=== PATIENT | male | born 1990 | race Caucasian/White ===

== ENCOUNTER 2020-10-13 00:03 | Inpatient (IN) | payer MEDICAID, SELFPAY ==
[2020-10-13] VITALS (7 sets, daily range): BP systolic 154–184; BP diastolic 98–117; PULSE 67–92; RESP 15–20; TEMP 36.6–37.2; O2SAT 97–98; BMI 26.4
--- NOTE | 2020-10-13 00:23 | ED.GENADULT ---
HPI - General Adult General Chief complaint: Psychiatric Symptoms Stated complaint: si/hi Time Seen by Provider: 10/13/20 00:22 Source: patient and EMS Mode of arrival: EMS Limitations: no limitations History of Present Illness HPI narrative: Patient is brought to emergency room by EMS. EMS reports that the patient's sister called the police, seems that the patient called the sister, told her that he would give her a few hours of ?heads up? because she was coming after her. Seems the patient had to be chased by PD. Patient was Section 12 in the field. Patient states that he when out for a run, did not mention anything about his sister, states that he has been having some difficulty coping with issues, when out for a run to clear his mind. Patient admits to be using anabolic steroids. States he has been injecting them to build muscle, has been off of them for a few days, states that he thinks it is the steroids that is making him feel mentally unbalanced. states that he is known to be bipolar but uses marijuana for self-medication. Patient denied HI, states that he has vague SI thoughts, states he does not want to be here anymore Related Data Home Medications Medication Instructions Recorded Confirmed No Known Home Meds 10/13/20 10/13/20 Allergies Allergy/AdvReac Type Severity Reaction Status Date / Time No Known Allergies Allergy Verified 10/13/20 00:22 Review of Systems Review of Systems: Constitutional : No Weight loss, No Fever, No Chills, No Night Sweats, No Fatigue, No Malaise ENT/Mouth : No Hearing loss, No Ear Pain, No Nasal Congestion, No Sinus Pain, No Hoarseness, No sore throat, No Rhinorrhea, No Swallowing Difficulty Eyes: No Eye Pain, No Swelling, No Redness, No Foreign Body, No Discharge, No Vision Changes Cardiovascular : No Chest Pain, No SOB, No Dyspnea on Exertion, No Orthopnea, No Edema, No Palpitations Respiratory : No Cough, No Sputum, No Wheezing, No Smoke Exposure, No Dyspnea Gastrointestinal : No Nausea, No Vomiting, No Diarrhea, No Constipation, No abdominal Pain, No Hematochezia, No Melena Genitourinary : no irregular bleeding, No Dysuria, No Urinary Frequency, No Hematuria, No Urinary Incontinence, No Urgency, No Flank Pain, No Urinary Flow Changes, No Hesitancy Musculoskeletal : No joint pain, No Myalgias, No Joint Swelling Skin : No Skin Lesions, No rash Neuro : No Weakness, No Numbness, No Paresthesias, No Loss of Consciousness, No Dizziness, No Headache Psych : Vague SI and HI towards sister Heme/Lymph: No Bruising, No Bleeding,No Lymphadenopathy Endocrine : No Polyuria, No Polydipsia, No Temperature Intolerance [facility] Past Medical History Medical History (Updated 10/13/20 @ 00:28 by Uyen Tolentino MD) Bipolar 1 disorder Social History Social History Alcohol intake: current Alcohol intake frequency: holidays/special occasions only Patient Tobacco Use Status: Current everyday Tobacco user Smoked in Last 30 Days: Yes Use of substances other than those prescribed or required for medical reasons: Yes Substance Use Type: Marijuana Substance Use Frequency: Daily Last Used Substance: Just Prior to Admission Any prior treatment program specific to substance use: No Advance Directives: No Advance Directives Information Provided: Yes Physical Exam Vital Signs: Vital Signs: Last Vital Signs Pulse 92 10/13/20 00:14 Resp 16 10/13/20 00:14 BP 184/98 H 10/13/20 00:14 Pulse Ox 98 10/13/20 00:14 Body Mass Index 26.4 Const: Other: Appearance: Alert. Oriented X3. No acute distress. Eyes: Pupils equal, round and reactive to light. ENT: Pharynx normal. Neck: Normal inspection. Neck supple. No lymph nodes noted. No crepitus CVS: Normal heart rate and rhythm. Pulses normal. Normal S1 and S2 Respiratory: No respiratory distress. Breath sounds normal. No Wheezing. No rales Abdomen: Soft and nontender. No rigidity. No distention. good BS x4 Skin: Skin warm and dry. Normal skin color. Normal skin turgor. Extremities: No lower extremity edema. No Lacerations. No Rash Neuro: Oriented X 3. Cranial nerves 2-12 grossly intact No motor deficit. No sensory deficit. Moving all extermities. No slurred speech. Psych: Calm, cooperative, speaking in full sentences Course Course Course Narrative: Patient is under Section 12. [facility] consult pending. Physician observation started at 00:30 Approximately 645, patient stated that he wanted to leave home, told the nurse in the [facility] but that had 5 minutes to given his clothes or he would become physically violent. Patient's nurse pulled out 5 mg of Haldol, 2 of Ativan and 50 of Benadryl. Patient did calm down. Patient keeps space in between his room and the phone. However he keeps making homicidal statements such as he is going to kill people. At this time, 702, the medication has not been given, he is deescalating, however patient gets angry very quickly and he may need to be medicated. I was informed by the patient since that when patient came in, he came in with a Section 12, however it seems that the PD to come with him. I will go ahead and renew it. As mentioned above, patient continues making fell statements At this time, patient is on the phone. Sign-out given to Dr. Sheldon Medical Decision Making Lab Data Labs: Lab Results 10/13/20 10/13/20 10/13/20 Range/Units 00:38 00:38 00:38 Urine Color YELLOW Urine Appearance CLEAR Urine pH 6.0 (5.0-8.0) Ur Specific [place] 1.025 (1.005-1.025) Urine Protein TRACE (NEG-TRACE) MG/DL Urine Glucose (UA) NEG (NEG) MG/DL Urine Ketones 15 (NEG) MG/DL Urine Blood NEG (NEG) Urine Nitrite NEG (NEG) Ur Leukocyte Esterase NEG (NEG) Urine Opiates Screen POSITIVE H (Not Detect) Urine Fentanyl Screen Not Detected (Not Detect) Ur Barbiturates Screen Not Detected (Not Detect) Ur Phencyclidine Scrn Not Detected (Not Detect) Ur Amphetamines Screen Not Detected (Not Detect) U Benzodiazepines Scrn Not Detected (Not Detect) Urine Cocaine Screen Not Detected (Not Detect) U Marijuana (THC) Screen POSITIVE H (Not Detect) COVID-19 (LUCIE) Negative (Negative) COVID-19 Clin Com See Note Discharge Plan Discharge Clinical Impression: Feeling suicidal Prescriptions: No Action No Known Home Meds RF: 0
[2020-10-13 00:50] LABS: Appearance Urine CLEAR; Color Urine YELLOW; Glucose Urine UA NEG (NEG); Leukocyte Esterase Urine NEG (NEG); Nitrite Urine NEG (NEG); Specific Gravity - Urine 1.025 (1.005-1.025); Urine Blood NEG (NEG); Urine Ketones 15 MG/DL (NEG); Urine Protein TRACE MG/DL (NEG-TRACE)
[2020-10-13 00:59] LABS: COVID-19 Test Negative (Negative); IDNOW Serial# 9DD0AD1C
[2020-10-13 01:00] LABS: Amphetamine Screen Urine Not Detected (Not Detect); Barbiturates, Urine Not Detected (Not Detect); Benzodiazepines Screen Urine Not Detected (Not Detect); Cannabinoid Screen Urine POSITIVE (Not Detect); Cocaine Screen Urine Not Detected (Not Detect); Fentanyl, urine Not Detected (Not Detect); Opiate Screen Urine POSITIVE (Not Detect); Phencyclidine Screen Urine Not Detected (Not Detect)
--- NOTE | 2020-10-13 01:49 | PC.NURSE ---
[facility] referal sent.
--- NOTE | 2020-10-13 01:58 | PC.NURSE ---
shower completed pt is now back in his room and given water and offered snack. pt is calm and cooperative.
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
--- NOTE | 2020-10-13 07:40 | PC.NURSE ---
pt is on [facility] phone and is calm and co-op. [facility] called they will be in to see him this am.
--- NOTE | 2020-10-13 08:10 | PC.NURSE ---
PT ATE 100% OF BREAKFAST.
--- NOTE | 2020-10-13 09:07 | PC.NURSE ---
ilya Ibrahimsara) at bedside, pt aware of plan of care..
--- NOTE | 2020-10-13 10:08 | PC.NURSE ---
Addendum entered by Halie Beal 10/13/20 10:14: RN was made aware of the statements made by the patient while on a phone call with an unknown person. Original Note: patient reported so you did not see them at court sectioning me? how did you not know this was happening to me? well, you all are all done when i get out of here, DONE! , as he was on the phone with an unknown person. T/W asked the patient if he needed anything to help settle down after the upsetting call, patient reported i just need a hot blanket and a long shower . patient then proceeded to patiently wait as T/W collected the necessary items for the shower. he then asked to take a long shower, to be able to collect his thoughts and sit in the shower for a while without any disruptions . patient is now in the shower. patient is being calm and cooperative towards staff at this time.
--- NOTE | 2020-10-13 12:14 | PC.NURSE ---
Patient angry and yelling on phone, patient reports I will do anything to get security to come here but they won't come within 6 feet of me .
--- NOTE | 2020-10-13 16:42 | PC.NURSE ---
Patient calm cooperative resting in room
--- NOTE | 2020-10-13 18:33 | PC.NURSE ---
Patient yelling on phone at this time. I cant get to my happy place here. , why the fuck cant I leave? ,
--- NOTE | 2020-10-13 20:48 | PC.NURSE ---
Patient calm cooperative at this time, watching TV in common area.
[2020-10-13] MEDS: diphenhydrAMINE HCL 25 MG TABLET 50 MG PO (23:24)
[2020-10-13] MEDS: LORazepam 1 MG TABLET 2 MG PO (23:24)
[2020-10-13] MEDS: OLANZapine 5 MG TABLET PO (23:24)
--- NOTE | 2020-10-13 23:52 | PC.NURSE ---
Patient was in his room, attempted to interact, successful, compliant with Vital signs assessment, BP 179/117. HR 82. Patient obviously asymptomatic of withdrawal, patient aware he is aware of his hypertension working on his diet and exercise, patient appears restless, stated tomorrow is a big day offered medication to calm him down and for sleep, provider notified/ordered Ativan 2 mg PO, Benadryl 50 mg PO, and Olanzapine 5 mg PO. Patient took shower, hydrated with water, lie down in bed, resting quietly in bed at this time, will continue to monitor.
--- NOTE | 2020-10-14 06:08 | PC.NURSE ---
Patient slept through the night, no distress observed/reported, patient's disposition per [facility] is section 12 inpatient bed search, behavior appropriate, med compliant, appetite good, hydrating well, will continue to monitor.
--- NOTE | 2020-10-14 07:12 | PC.NURSE ---
patient appear to remain asleep at present respirations seem even and unlabored, patient appears in no distress
--- NOTE | 2020-10-14 07:47 | ECG_ITS ---
Test Reason : MED CLEARANCCE Blood Pressure : / mmHG Vent. Rate : 096 BPM Atrial Rate : 096 BPM P-R Int : 122 ms QRS Dur : 090 ms QT Int : 352 ms P-R-T Axes : 069 083 035 degrees QTc Int : 444 ms Normal sinus rhythm Normal ECG No previous ECGs available Referred By: Uyen Tolentino Electronically Signed By:NELLY GONZALES
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
--- NOTE | 2020-10-14 11:09 | PC.NURSE ---
client comes out and demands to leave, takes off clothing saying im calling my clinical account liaison, i want to go see my father in [place] and by im leaving allegedly called sister and asked her to call his clinical account liaison.
[2020-10-14] MEDS: LORazepam 1 MG TABLET 2 MG PO (13:51)
[2020-10-14 14:37] LABS: MANUAL DIFF FLAG NO
[2020-10-14 14:51] VITALS: BP 161/93; PULSE 93; O2SAT 97
[2020-10-14 15:00] LABS: Alanine Aminotransferase 32 U/L (0-40); Albumin Level 4.7 g/dL (3.5-5.0); Alkaline Phosphatase 45 U/L (39-117); Anion Gap 12 (12-20); Aspartate Amino Transferase 38 U/L (5-37); Bilirubin Direct 0.2 mg/dL (0.0-0.5); Bilirubin Total 0.6 mg/dL (0.0-1.0); Blood Urea Nitrogen 17 mg/dL (9-16); Calcium 9.7 mg/dL (8.4-10.2); Carbon Dioxide 26 mmol/L (22-29); Chloride 106 mmol/L (96-108); Creatinine Clr Calc Pharmacy 99.6; Estimated Glomerular Filt Rate > 60; Glucose Random 104 mg/dL (60-115); Potassium 4.3 mmol/L (3.3-5.1); Sodium 140 mmol/L (135-145); Total Protein 7.7 g/dL (6.5-8.0)
[2020-10-14 15:05] LABS: Basophils Percent Auto 0.3 % (0-2); Eosinophils Percent Auto 0.5 % (0-4); Hematocrit 51.1 % (42-52); Hemoglobin 17.3 g/dl (14.0-18.0); Imm Gran Abs Auto 0.02 X10*3/uL (0.00-0.03); Imm Gran Pct Auto 0.3 % (0.0-0.4); Lymphocytes Absolute Auto 1.3 X10*3/uL (1.2-4.9); Lymphocytes Percent Auto 18.3 % (20-40); Mean Corpuscular HGB Conc 33.9 g/dl (31.0-36.0); Mean Corpuscular Hemoglobin 29.5 pg (27.0-33.0); Mean Corpuscular Volume 87.2 fL (80-98); Mean Platelet Volume 10.1 fL (9.4-12.4); Monocytes Absolute Auto 0.6 X10*3/uL (0.1-1.2); Monocytes Percent Auto 7.9 % (2-11); Neutrophils Absolute Auto 5.3 X10*3/uL (2.0-8.3); Neutrophils Percent Auto 72.7 % (45-73); Platelet Count 235 X10*3/uL (160-400); Red Blood Count 5.86 X10*6/uL (4.60-5.80); Red Cell Distribution Width 12.7 % (11.0-16.0); White Blood Count 7.3 X10*3/uL (4.8-10.8)
--- NOTE | 2020-10-14 15:47 | PC.NURSE ---
attempted to verify meds at [facility], it is currently closed
--- NOTE | 2020-10-14 19:02 | PC.ADMIT ---
Pt is a 30 year old who presents to [facility] from [facility] at approx 16:30 on a cv status. Pt is covid -. Utox + for THC and opiates. Pt prsetned to [facility] via EMS secondary to PD sending him due to running in the [employer] and making SI/HI statements to his mother and sister. Pt alert & oriented. Pt denies SI/HI/AVH. Pt mentioned that his mother would give him opiates. Pt does not have any outpt services. Pt seeking a therapist. Pt made vague SI statements to sis. Dr. Billy Alarcon called for orders and notified of admission. Start treatment plan and monitor for safety.
[2020-10-14] MEDS: Nicotine Polacrilex 2 MG GUM BUCCAL (21:30)
[2020-10-14 23:23] VITALS: BP 169/98; PULSE 87
[2020-10-14 23:28] VITALS: BP 169/98; PULSE 87
[2020-10-14] MEDS: amLODIPine Besylate 10 MG TABLET PO (23:28)
--- NOTE | 2020-10-15 | ECG_ITS ---
Test Reason : ON MEDS Blood Pressure : / mmHG Vent. Rate : 106 BPM Atrial Rate : 106 BPM P-R Int : 130 ms QRS Dur : 094 ms QT Int : 336 ms P-R-T Axes : 079 086 020 degrees QTc Int : 446 ms Sinus tachycardia Otherwise normal ECG When compared with ECG of 14-OCT-2020 15:42, No significant change was found Referred By: Uyen Tolentino Electronically Signed By:NELLY GONZALES
[2020-10-15 06:00] VITALS: PULSE 82; RESP 16; TEMP 36; O2SAT 100
[2020-10-15] MEDS: Nicotine Polacrilex 2 MG GUM BUCCAL ×2 (09:17→13:05)
--- NOTE | 2020-10-15 10:25 | HO.PSYADMNOT ---
HPI Chief Complaint: Depression SI Sources of Information: patient interviewed, chart reviewed and crisis/core team assessment reviewed HPI Subjective Notes: Waterman Warning, Conditional Voluntary and 3 Day Narrative: Patient is a 30-year-old male with history of PTSD, depression and substance abuse who presents for worsening depression and making both suicidal homicidal comments and the face of emotional dysregulation. Patient reports a long history of traumatic experiences dating back to childhood when he and his sister were both in foster care, eventually being adopted by their grandfather. Patient also has history of juvenile fpc. He reports that about a year and a half ago he broke up with his fiancee with whom he has a child and has been feeling depressed since. 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 Patient was forthcoming during interview. He was calm, cooperative, organized in speech and behavior and thoughtful in responses. He reports that about a year ago he started taking anabolic steroids to gain muscle but his depression over the past few months has sapped his motivation and energy for working out. He endorses increased anger and emotionality while taking steroids which his friends have noticed and become somewhat alienated. Patient says he went off steroids about 2 weeks ago since he was not exercising and he thinks that coming off them has also caused mood dysregulation. Patient says he smokes cannabis daily which at 1st he used to treat anxiety, however it has become abused which he finds problematic. Pt endorses low interest and motivation increased guilt, low energy, trouble sleeping. This past week or so, leading up to the anniversary of his father's patient has been feeling more lonely than usual and that his friends and sister are not really there for him. He has the insight to know that it can all be is friend's and family's fault as he is the common denominator however the feelings of abandonment remain. Last week he helped a friend move and afterwards the person refused to give him a ride home. He thus had to walk extensive distance home. On the way he texted various friends, none of whom responded. He also texted his sister who also did not respond. This lack of perceived support made patient feel increasingly lonely and despondent. He texted his sister several times however she did not respond. Wanting to get a reaction, he texted to his sister something to the effect that he does not want to be here anymore or that he was going to kill himself. She still did not respond. However either later that day or the next day patient found his [id number] sitting it in his living room. Patient thought that was weird but nothing was said and patient when jogging. It is unclear the exact course of events, however his sister came over also and told him that the police were coming over. Patient was angry that this was his sister's response, calling the police, rather than just calling him and talking with him so he when out jogging again. As he returned home police told him to stop and in his angry, defensive disposition he resisted and was subsequently threatened with being Tazed. While on the ground being handcuffed patient said he was extremely angry and yelled to his sister that he was going to kill her or hurt her or various other angry threatening things. Of note, this was the day of his fathers and pt was also upset that he would not be able to go to grave site as is his tradition. In the ED, Patient was also dysregulated, feeling like no one was explaining the situation to him and he was eventually chemically restrained. On the unit after admission, patient punched the shower wall since the water stopped in his eyes were soapy. Patient shares that he was in no way suicidal at all and has never been but only made that comment via text to get a response from his sister. He also says that he would never hurt his sister or her family and again when he gets angry and dysregulated, says all kinds of things that he does not mean. Patient is strongly aware that his current behaviors and feelings of abandonment stem from his long history of trauma. He feels what he needs most is therapy, however he is willing to a trial of Prozac. Patient says he does not want to stay on unit long or feel the need to, saying the he is stable, safe and that his anger has fully subsided and he wants to get back to his life. He knows that he has been distant from a sister but also knows that the 2 of them well reconcile and work this out as they have only each other in this life. Patient also shares that he is done taking anabolic steroids, concerned about his high blood pressure and other negative affects; he also reports that he needs to cut back using cannabis. Patient denies any SI or HI. Patient denies history of manic type episodes or behavior Patient reports history of substance abuse but says he has not used cocaine in quite some time and only uses alcohol occasionally and does not abuse it. Regarding urine tox screen positive for opiates he said that his back was hurting and that his mother gave him some oxy. He says otherwise he does not use or abuse opiates. Cloth Finishing Range Operator examined patient's hand which is not tender. Patient has full range of motion and 5/5 payable processor strength. He says he does not want an x-ray Past Psychiatric History: Childhood dysregulation, various medication trials including Depakote but no medications since he was 15 years old Medical Evaluation Reviewed: Yes [facility] Medical History (Updated 10/16/20 @ 13:16 by Apolinar Lennon MD) Bipolar 1 disorder Chronic post-traumatic stress disorder (PTSD) MDD (major depressive disorder), recurrent episode, severe Family History: Both parents drug abuse history Social History: Intermittently lives with his mother who was addicted to cocaine Patient and his sister were taken into custody by social media marketing manager when they were young; eventually adopted by their grandfather Patient has history of juvenile fpc Patient has history of incarceration for battery Substance History: Reports he used to abuse cocaine and alcohol but no longer Trauma History: Severe and extensive childhood trauma; other traumas in adult life Diagnostics Vital Signs (24Hr): Vital Signs - 24 hr 10/14/20 14:51 10/14/20 23:23 10/14/20 23:28 Temperature Pulse Rate 93 87 87 Respiratory Rate Blood Pressure 161/93 H 169/98 H 169/98 H Pulse Oximetry 97 10/15/20 06:00 Temperature 96.8 F Pulse Rate 82 Respiratory Rate 16 Blood Pressure Pulse Oximetry 100 Body Mass Index 26.4 Labs Results: 10/14/20 14:33 10/14/20 14:33 Labs: Laboratory Results - last 48 hr 10/14/20 10/14/20 14:33 14:33 WBC 7.3 RBC 5.86 H Hgb 17.3 Hct 51.1 MCV 87.2 MCH 29.5 MCHC 33.9 RDW 12.7 Plt Count 235 MPV 10.1 Immature Gran % (Auto) 0.3 Neut % (Auto) 72.7 Lymph % (Auto) 18.3 L [place] % (Auto) 7.9 Eos % (Auto) 0.5 Baso % (Auto) 0.3 Lymph # (Auto) 1.3 [place] # (Auto) 0.6 Eos # (Auto) 0.0 Baso # (Auto) 0.0 Abs Immat Gran (auto) 0.02 Absolute Neuts (auto) 5.3 Absolute Nucleated RBC 0.000 Nucleated RBC % (auto) 0.0 Sodium 140 Potassium 4.3 Chloride 106 Carbon Dioxide 26 Anion Gap 12 BUN 17 H Creatinine 1.19 Estim Creat Clear Calc 99.6 Estimated GFR > 60 Random Glucose 104 Calcium 9.7 Total Bilirubin 0.6 Direct Bilirubin 0.2 AST 38 H ALT 32 Alkaline Phosphatase 45 Total Protein 7.7 Albumin 4.7 Meds/Allergies Meds Home Medications Acetaminophen (Acetaminophen 325 Mg Tablet) 650 mg PO Q6H PRN PRN Reason: Headache/Pain Mild Scale (1-3) Al Hydroxide/Mg Hydroxide (Magnesium Hydrox/Alum Hydrox 30 Ml Oral.Susp) 30 ml PO Q6H PRN PRN Reason: Heartburn/Nausea Diphenhydramine HCl (Diphenhydramine Hcl 25 Mg Tablet) 50 mg PO Q4H PRN PRN Reason: agitation Fluoxetine HCl (Fluoxetine Hcl 10 Mg Capsule) 10 mg PO DAILY [facility] Last Admin: 10/16/20 09:09 Dose: 10 mg Documented by: Haloperidol (Haloperidol 5 Mg Tablet) 5 mg PO Q4H PRN PRN Reason: agitation Hydralazine HCl (Hydralazine Hcl 10 Mg Tablet) 10 mg PO TID PRN; Protocol PRN Reason: HTN Last Admin: 10/16/20 05:06 Dose: 10 mg Documented by: Lorazepam (Lorazepam 1 Mg Tablet) 2 mg PO Q4H PRN PRN Reason: agitation Magnesium Hydroxide (Milk Of Magnesia 30 Ml Oral.Susp) 30 ml PO DAILY PRN PRN Reason: Constipation Nicotine Polacrilex (Nicotine Polacrilex 2 Mg Gum) 2 mg BUCCAL Q2H PRN PRN Reason: Nicotine Cravings Last Admin: 10/16/20 08:56 Dose: 2 mg Documented by: Trazodone HCl (Trazodone Hcl 50 Mg Tablet) 50 mg PO BEDTIME PRN PRN Reason: Insomnia Allergies Allergies Allergy/AdvReac Type Severity Reaction Status Date / Time No Known Allergies Allergy Verified 10/13/20 00:22 Mental Status Exam Mental Status Exam Narrative: Pt is alert and oriented; behavior is cooperative and calm; patient is not in distress; dressed in casual attire with scruffy bailey but adequate hygiene; mood is described as better affect anxious; eye contact appropriate; Speech is normal rate, volume and prosody and not pressured; no psychomotor agitation/retardation present; thought process is organized, linear, logical and goal directed. Thought content is on getting treatment and discharge; otherwise TC relevant to pertinent topics and without any delusional content, paranoid ideations or grandiosity; denies any SI/HI. There is no evidence of perceptual disturbance. ?Patients insight and judgment appear intact. ? Assessment & Plan Assessment & Plan (1) MDD (major depressive disorder), recurrent episode, severe: Status: Acute Code(s): F33.2 - Major depressive disorder, recurrent severe without psychotic features (2) Chronic post-traumatic stress disorder (PTSD): Status: Acute Code(s): F43.12 - Post-traumatic stress disorder, chronic Assessment and Plan: IMPRESSION: Patient is a 30-year-old male with history of PTSD, depression and substance abuse who presents for worsening depression and making both suicidal homicidal comments and the face of emotional dysregulation. Patient meets criteria for MDD; patient PTSD symptoms were not explored as he was not wanting to discuss, however patient very likely has complex PTSD and possibly some borderline traits. That said, patient denies any history at all of suicidality and says that his suicidal comment was made only to get a reaction from his sister; he also reports he would never hurt his family and only made threats to again expresses anger. Patient agrees to trial of Prozac and wants help getting a therapist. He also wants to discharge as soon as possible feeling stable on ready to go. Team will gather collateral however it is quite possible that patient is back to his baseline. 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 Medical consult placed to assess hypertension and medication management Team will gather collateral Reason for continued inpatient stay Substantial Risk for: med/psych decompensation
[2020-10-15 12:19] VITALS: BP 173/98; PULSE 90
[2020-10-15] MEDS: hydrALAZINE HCl 10 MG TABLET PO (12:19)
[2020-10-15] MEDS: FLUoxetine HCl 10 MG CAPSULE PO (18:44)
[2020-10-16] VITALS (9 sets, daily range): BP systolic 140–183; BP diastolic 81–126; PULSE 72–93; RESP 14–18; TEMP 36.2–36.4; O2SAT 97–99
[2020-10-16] MEDS: hydrALAZINE HCl 10 MG TABLET PO (05:06)
[2020-10-16] MEDS: Nicotine Polacrilex 2 MG GUM BUCCAL ×2 (08:56→18:35)
[2020-10-16] MEDS: FLUoxetine HCl 10 MG CAPSULE PO (09:09)
[2020-10-16] MEDS: cloNIDine HCL 0.1 MG TABLET PO ×2 (14:32→21:26)
--- NOTE | 2020-10-16 17:04 | P.CONIM_ITS ---
History of Present Illness Data of Consult Service Date: 10/16/20 Primary Care Provider: Unknown Physician HPI Reason for consult: Elevated blood pressure readings A 30 years old male with PMH of PTSD, depression who was admitted to the hospital for suicidal thoughts. Blood pressure was noted to be significantly e levated and medical team was consulted for evaluation. The patient reports that he was found to have hypertension 3 years ago when his weight was much higher. He did not take any medications at this point but lost weight and became more active, to the gym but stopped checking his blood pressure afterward so he does not know his readings for the last 2 years. He reports that his father suddenly at the age of 37 with heart attack. He is not aware of other medical details related to his father. He denies any chest pain, headache, lightheadedness, double vision, difficulty breathing or shortness of breath. He reported using anabolic steroids recently which she stopped few days ago. Review of Systems Review of Systems: No fever, chills or weakness No chest pain, palpitation No shortness of breath or coughing No abdominal pain, nausea or vomiting No urinary symptoms No any rash or wounds PMFSH Medical History Bipolar 1 disorder Chronic post-traumatic stress disorder (PTSD) MDD (major depressive disorder), recurrent episode, severe Social History Household Members: Family and None Housing: Apartment Do you presently have visiting nurse or other home services: No Alcohol intake: current Alcohol intake frequency: holidays/special occasions only Patient Tobacco Use Status: Current everyday Tobacco user Tobacco use type: Cigarette Cigarette Packs Per Day: 1.5 Cigarettes Per Day: 30.0 Years Smoked: 3 Smoked in Last 30 Days: Yes Patient Interested in Nicotine Replacement: Yes Patient Given Instructions on How to Stop Smoking: Yes Date Education Initiated: 10/14/20 Second Hand Smoke Exposure: Yes Use of substances other than those prescribed or required for medical reasons: Yes Substance Use Type: Marijuana and Opiates Substance Use Frequency: Daily Last Used Substance: Just Prior to Admission Currently Displaying Signs/Symptoms of Drug Intoxication Withdrawal: No Any prior treatment program specific to substance use: No Have you been hit, kicked, punched, or otherwise hurt by someone within the past year? If so, by whom?: No Do you feel safe in your current relationship?: No Current Relationship Is there a partner from a previous relationship who is making you feel unsafe now?: No Are you made to feel afraid or neglected: No Advance Directives: No Advance Directives Information Provided: Yes Do you have thoughts of harming others: None Do you have a plan to hurt others: No Plan Recently lost weight without trying: No How much weight loss: Not applicable Eating poorly because of decreased appetite: No Nutrition screen score: 0 Nutrition Risks: No Nutritional Risk Poor oral hygiene: No service: No Sexual orientation: Straight/Heterosexual Meds Allergies Allergy/AdvReac Type Severity Reaction Status Date / Time No Known Allergies Allergy Verified 10/13/20 00:22 Active Medications: Current Medications Generic Name Dose Route Start Last Admin Trade Name Freq PRN Reason Stop Dose Admin Acetaminophen 650 mg 10/14/20 16:02 Acetaminophen 325 Mg Tablet PO Q6H PRN Headache/Pain Mild Scale (1-3) Al Hydroxide/Mg Hydroxide 30 ml 10/14/20 16:02 Magnesium Hydrox/Alum Hydrox 30 Ml Oral.Susp PO Q6H PRN Heartburn/Nausea Clonidine HCl 0.1 mg 10/16/20 21:00 10/16/20 14:32 Clonidine Hcl 0.1 Mg Tablet PO 0.1 mg BID CEE Administration Protocol Diphenhydramine HCl 50 mg 10/15/20 10:31 Diphenhydramine Hcl 25 Mg Tablet PO Q4H PRN agitation Fluoxetine HCl 10 mg 10/16/20 09:00 10/16/20 09:09 Fluoxetine Hcl 10 Mg Capsule PO 10 mg DAILY CEE Administration Haloperidol 5 mg 10/15/20 10:31 Haloperidol 5 Mg Tablet PO Q4H PRN agitation Hydralazine HCl 10 mg 10/15/20 10:27 10/16/20 05:06 Hydralazine Hcl 10 Mg Tablet PO 10 mg TID PRN Administration HTN Protocol Lorazepam 2 mg 10/15/20 10:31 Lorazepam 1 Mg Tablet PO Q4H PRN agitation Magnesium Hydroxide 30 ml 10/14/20 16:02 Milk Of Magnesia 30 Ml Oral.Susp PO DAILY PRN Constipation Nicotine Polacrilex 2 mg 10/14/20 16:02 10/16/20 08:56 Nicotine Polacrilex 2 Mg Gum BUCCAL 2 mg Q2H PRN Administration Nicotine Cravings Trazodone HCl 50 mg 10/14/20 16:02 Trazodone Hcl 50 Mg Tablet PO BEDTIME PRN Insomnia Home Medications Medication Instructions Recorded Confirmed Last Taken Type No Known Home Meds 10/13/20 10/13/20 Unknown History Physical Exam Vital Signs and Narrative: Vital Signs: Last Vital Signs Temp 97.2 F 10/16/20 09:00 Pulse 75 10/16/20 15:34 Resp 16 10/16/20 15:34 BP 183/111 H 10/16/20 15:34 Pulse Ox 98 10/16/20 09:00 Body Mass Index 26.4 Const: Other: Constitutional : Alert, oriented, not in distress Neck : Normal inspection, Supple Cardiovascular : RRR, S1 S2, no lower extremity edema Respiratory : Good bilateral air entry, no crackles, wheezes or rhonchi Gastrointestinal: soft, lax, Normal bowel sounds, Non tender Skin : Warm, Dry Neurological : Alert & oriented x3, No focal deficit Results Labs CBC and Chem 7: 10/14/20 14:33 10/14/20 14:33 Assessment and Plan (1) Uncontrolled hypertension: Status: Acute A 30 years old male with PMH of PTSD, depression who was admitted to the hospital for suicidal thoughts. Blood pressure was noted to be significantly elevated and medical team was consulted for evaluation. Uncontrolled hypertension Seems to be chronic with poor compliance and followups In his young age could be secondary VS primary Start amlodipine 5 mg and hydrochlorothiazide 25 mg daily Goal to bring systolic blood pressure around 140 for now BMP, UA within normal Check TSH Will need outpatient workup with kidney ultrasound, possible echo and Endocrinology workup Continue blood pressure medications at discharge and to report 1 week readings to his PCP for further evaluation and referrals as needed Thank you for the consult, will continue to monitor with you
[2020-10-16] MEDS: hydroCHLOROthiazide 25 MG TABLET PO (17:20)
[2020-10-16] MEDS: amLODIPine Besylate 5 MG TABLET PO (17:21)
[2020-10-16 18:48] LABS: Thyroid Stimulating Hormone 1.12 uIU/mL (0.32-4.0)
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
[2020-10-17] MEDS: traZODone HCL 50 MG TABLET PO (01:19)
[2020-10-17 08:42] VITALS: BP 168/97; PULSE 97
[2020-10-17] MEDS: FLUoxetine HCl 10 MG CAPSULE PO (08:42)
[2020-10-17 08:43] VITALS: BP 168/97
[2020-10-17] MEDS: amLODIPine Besylate 5 MG TABLET PO (08:43)
[2020-10-17] MEDS: hydroCHLOROthiazide 25 MG TABLET PO (09:13)
--- NOTE | 2020-10-17 09:16 | P.DS_ITS ---
DS: Providers Provider Date of Service: 10/17/20 Date of admission: 10/14/20 15:51 Date of discharge: 10/17/20 Primary care physician: Unknown Physician Attending physician on admission: Apolinar Lennon Consults: 10/16/20 10:44 Consult to Hospitalist Routine Consulting Provider: Hospitalist Reason For Exam: HTN; needs med for tx Attending physician on discharge: Apolinar Lennon DS: Diagnosis Discharge Diagnosis (1) Chronic post-traumatic stress disorder (PTSD): Status: Chronic (2) MDD (major depressive disorder), recurrent episode, severe: Status: Chronic (3) Uncontrolled hypertension: Status: Acute DS: Medications Discharge Medications Home Medications: Home Medications Medication Instructions Recorded Confirmed No Known Home Meds 10/13/20 10/13/20 Previous Rx's Medication Instructions Recorded amlodipine 5 mg tablet 5 mg PO DAILY 30 Days #30 tab 10/17/20 fluoxetine 10 mg capsule 10 mg PO DAILY 30 Days #30 cap 10/17/20 hydrochlorothiazide 25 mg tablet 25 mg PO DAILY 30 Days #30 tab 10/17/20 nicotine (polacrilex) 2 mg gum 2 mg BUCCAL Q2H PRN 30 Days #100 ea 10/17/20 Mental Status Exam Mental Status Exam Narrative: ?Pt is alert and oriented; behavior is cooperative and calm; patient is not in distress; neatly dressed in casual attire with scruffy bailey but good hygiene; mood is described as good ? affect calm, congruent; eye contact appropriate; Speech is normal rate, volume and prosody and not pressured; no psychomotor agitation/retardation present; thought process is organized, linear, logical and goal directed. Thought content is on continuing treatment and discharge; otherwise TC relevant to pertinent topics and without any delusional content, paranoid ideations or grandiosity; denies any SI/HI. There is no evidence of perceptual disturbance. ?Patients insight and judgment appear intact. Data Data Completed and Pending Completed studies during hospitalization [Text1]: 10/13/20 10/13/20 10/13/20 00:38 00:38 00:38 WBC RBC Hgb Hct MCV MCH MCHC RDW Plt Count MPV Immature Gran % (Auto) Neut % (Auto) Lymph % (Auto) [place] % (Auto) Eos % (Auto) Baso % (Auto) Lymph # (Auto) [place] # (Auto) Eos # (Auto) Baso # (Auto) Abs Immat Gran (auto) Absolute Neuts (auto) Absolute Nucleated RBC Nucleated RBC % (auto) Sodium Potassium Chloride Carbon Dioxide Anion Gap BUN Creatinine Estim Creat Clear Calc Estimated GFR Random Glucose Calcium Total Bilirubin Direct Bilirubin AST ALT Alkaline Phosphatase Total Protein Albumin TSH Urine Color YELLOW Urine Appearance CLEAR Urine pH 6.0 Ur Specific [place] 1.025 Urine Protein TRACE Urine Glucose (UA) NEG Urine Ketones 15 Urine Blood NEG Urine Nitrite NEG Ur Leukocyte Esterase NEG Urine Opiates Screen POSITIVE H Urine Fentanyl Screen Not Detected Ur Barbiturates Screen Not Detected Ur Phencyclidine Scrn Not Detected Ur Amphetamines Screen Not Detected U Benzodiazepines Scrn Not Detected Urine Cocaine Screen Not Detected U Marijuana (THC) Screen POSITIVE H COVID-19 ([facility]) Negative COVID-19 Clin Com See Note 10/14/20 10/14/20 10/16/20 14:33 14:33 18:08 WBC 7.3 RBC 5.86 H Hgb 17.3 Hct 51.1 MCV 87.2 MCH 29.5 MCHC 33.9 RDW 12.7 Plt Count 235 MPV 10.1 Immature Gran % (Auto) 0.3 Neut % (Auto) 72.7 Lymph % (Auto) 18.3 L [place] % (Auto) 7.9 Eos % (Auto) 0.5 Baso % (Auto) 0.3 Lymph # (Auto) 1.3 [place] # (Auto) 0.6 Eos # (Auto) 0.0 Baso # (Auto) 0.0 Abs Immat Gran (auto) 0.02 Absolute Neuts (auto) 5.3 Absolute Nucleated RBC 0.000 Nucleated RBC % (auto) 0.0 Sodium 140 Potassium 4.3 Chloride 106 Carbon Dioxide 26 Anion Gap 12 BUN 17 H Creatinine 1.19 Estim Creat Clear Calc 99.6 Estimated GFR > 60 Random Glucose 104 Calcium 9.7 Total Bilirubin 0.6 Direct Bilirubin 0.2 AST 38 H ALT 32 Alkaline Phosphatase 45 Total Protein 7.7 Albumin 4.7 TSH 1.12 Urine Color Urine Appearance Urine pH Ur Specific [place] Urine Protein Urine Glucose (UA) Urine Ketones Urine Blood Urine Nitrite Ur Leukocyte Esterase Urine Opiates Screen Urine Fentanyl Screen Ur Barbiturates Screen Ur Phencyclidine Scrn Ur Amphetamines Screen U Benzodiazepines Scrn Urine Cocaine Screen U Marijuana (THC) Screen COVID-19 ([facility]) COVID-19 Clin Com Cardiology Testing Ordering Physician: Apolinar Lennon MD Date of Service: 10/15/20 Procedure(s): ECG 12 lead EKG Accession Number(s): [id number] Test Reason : ON MEDS Blood Pressure : / mmHG Vent. Rate : 106 BPM ? ? Atrial Rate : 106 BPM ?? P-R Int : 130 ms? QRS Dur : 094 ms ? ? QT Int : 336 ms ? ? ? P-R-T Axes : 079 086 020 degrees ?? QTc Int : 446 ms ? Sinus tachycardia Otherwise normal ECG When compared with ECG of 14-OCT-2020 15:42, No significant change was found Electronically Signed By:NELLY GONZALES Additional Comments Additional comments: Vital Signs - 24 hr ? 10/16/20 05:06 10/16/20 09:00 10/16/20 13:00 Temperature ? 97.2 F ? Pulse Rate 72 72 80 Respiratory Rate ? 14 18 Blood Pressure 182/126 H 182/126 H 180/96 H Pulse Oximetry ? 98 ? ? 10/16/20 14:32 10/16/20 15:34 10/16/20 17:21 Temperature ? ? ? Pulse Rate 80 75 72 Respiratory Rate ? 16 ? Blood Pressure 180/96 H 183/111 H 140/81 H Pulse Oximetry ? 10/16/20 18:00 10/16/20 21:22 10/16/20 21:26 TemperatureB 97.5 F ? ? Pulse Rate 93 86 86 Respiratory Rate 18 18 ? Blood Pressure 165/96 H 152/104 H 152/104 H Pulse Oximetry 97 99 ? 10/17/2020 08:43 168/97 H 10/17/2020 08:42 168/97 H 10/16/2020 21:26 152/104 H 10/16/2020 21:22 152/104 H 10/16/2020 18:00 165/96 H 10/16/2020 17:21 140/81 H 10/16/2020 15:34 183/111 H 10/16/2020 14:32 180/96 H 10/16/2020 13:00 180/96 H 182/126 H 10/16/2020 05:06 182/126 H 10/15/2020 12:19 173/98 H 10/14/2020 23:28 169/98 H 10/14/2020 23:23 169/98 H 10/14/2020 14:51 161/93 H 10/13/2020 23:42 179/117 H 10/13/2020 21:01 176/107 H 10/13/2020 14:21 154/98 H 10/13/2020 11:38 169/112 H 10/13/2020 08:09 169/114 H 10/13/2020 00:14 184/98 H DS: Summary Hospital Course Hospital Course: Patient is a 30-year-old male with history of PTSD, depression and substance abuse who presents for worsening depression and making both suicidal homicidal comments and the face of emotional dysregulation.?? Patient meets criteria for MDD; patient PTSD symptoms were not explored as he was not wanting to discuss, however patient very likely has complex PTSD and possibly some borderline traits.? That said, patient denies any history at all of suicidality and says that his suicidal comment was made only to get a reaction from his sister; he also reports he would never hurt his family and only made threats to again expresses anger.? Patient agrees to trial of Prozac and wants help getting a therapist.? He also wants to discharge as soon as possible feeling stable on ready to go.? On the 1st morning of admission patient was still irritable and punched the shower door since the water went off and his eyes got soapy. However he was able to calm down and become and be forthcoming during sessions. He remained calm, with improved mood and was able to demonstrate good behavioral and impulse control. Patient tolerated prozac and continued to deny any SI or HI. Patient expressed regret having used anabolic steroids and was resolved to stay away from them; he also plan to cut way down on cannabis use; patient said he would never again use is mother's oxy code own for pain. Team contacted patients sister who corroborates patients account and agrees that he is neither suicidal nor at risk for harming others and appropriate for discharge. Patient came t to express gratitude for admission saying it was much needed and he was relieved to get help finding a therapist, started on medications to treat PTSD and dep ression and also to have his hypertension addressed. Patient reconciled with his sister as he knew he would and felt the 2 of them would be able to continue working on their relationship. Patient had placed a 3 day notice. He was not in imminent risk for harm to self or others and his request for discharge honored. On day of discharge, Patient was future oriented looking forward to outpatient treatment and getting back to work; he was in a good mood, without SI or HI, with bright affect and feeling optimistic about continuing stability. Of note, patient remained hypertensive. Hospitalist consult came to see patient and started him on amlodipine and hydrochlorothiazide (see recommendation details below). Director Of Institutional Sales discussed his hypertension and hospitalist's recommendations and patient agreed to check his blood pressure daily, report findings to his PCP and follow up with Dr. Mccoy at appointment on 10/23/20. Director Of Institutional Sales also called patient's PCP's office and talked with nurse about patient's hypertension and that he was started on new medications; staff said she would pass along the message to PCP. Patient was given a script for blood pressure cuff which he has used before at home. Mary Zhou MD A 30 years old male with PMH of PTSD, depression who was admitted to the hospital for suicidal thoughts.? Blood pressure was noted to be significantly elevated and medical team was consulted for evaluation. Uncontrolled hypertension Seems to be chronic with poor compliance and followups In his young age could be secondary VS primary Start amlodipine 5 mg and hydrochlorothiazide 25 mg daily Goal to bring systolic blood pressure around 140 for now BMP, UA within normal Check TSH Will need outpatient workup with kidney ultrasound, possible echo and Endocrinology workup Continue blood pressure medications at discharge and to report 1 week readings to his PCP for further evaluation and referrals as needed Time spent discussing smoking cessation with patient: 3 to 10 minutes Status at Discharge Functional status at discharge: independent ambulation Overall status at discharge: patient is back to baseline Time Spent with Patient Time attestation: Total time spent providing and/or coordinating discharge services: Time spent: Greater than 30 minutes Discharge Plan Discharge Patient Disposition: Home, Self-Care Discharge Diagnosis: MDD, recurrent, severe in full remission Referrals: [facility]ANN[facility] HERMAN [Other] - 10/23/20 10:45 am (IN OFFICE) [facility] [Other] - 1 Week (INTAKE) Discharge Medications: New nicotine (polacrilex) 2 mg Gum 2 mg buccal Q2H PRN (Reason: Nicotine Cravings) 30 Days Qty: 100 RF: 0 amlodipine 5 mg Tablet 5 mg PO DAILY 30 Days Qty: 30 RF: 0 fluoxetine 10 mg Capsule 10 mg PO DAILY 30 Days Qty: 30 RF: 0 hydrochlorothiazide 25 mg Tablet 25 mg PO DAILY 30 Days Qty: 30 RF: 0 (DME) Blood Pressure Cuff Misc See Rx Instructions .Route Qty: 1 RF: 0 Discharge Orders: Discharge Order (Routine); Ordered 10/17/20 Ordered By: Apolinar Lennon Diet: low salt diet Activity on Discharge: As tolerated Stand Alone Forms: Patient Portal Discharge page, Community Support Care Plan Goals: Maintain mood and safe behaviors Take medications as prescribed Continue to pursue sobriety Practice coping skills Continue with outpatient providers and reach out to them as needed Health Concerns: Mood stability and behaviors Hypertension Plan of Treatment: Follow up with your PCP and psychiatric provider regarding above concerns Take medications as prescribed Assessment: Risk assessment at time of discharge:? Patient was interviewed prior to discharge and found to be fully oriented and without any SI or HI. Patient has insight and demonstrates good judgment in terms of wanting to pursue treatment. Patient is not in imminent risk of harm to self or others and has a safety plan that includes presenting to the closest ER or calling 911 if feeling unsafe.? Patient has been observed closely by nursing and unit staff throughout admission; patient had brief, minor outburst on day of admission, but otherwise has not engaged in any behaviors that suggest dangerousness to self or others and has demonstrated appropriate behaviors and impulse control Discharge Date/Time: 10/17/20 12:20
== END 2020-10-17 12:20 | disposition home or self-care (01) | DRG 751 ==
LOC: HO.ED 01:22 → HO.PM5 10-14 15:54
PROVIDERS: Emergency Medicine; Student in an Organized Health Care Education/Training Program; Admitting Provider Psychiatry & Neurology Psychiatry; Emergency Provider Emergency Medicine; Visit Provider Psychiatry & Neurology Psychiatry
DX: F33.2 Major depressive disorder, recurrent severe without psychotic features (principal); R45.851 Suicidal ideations; I10 Essential (primary) hypertension; F43.12 Post-traumatic stress disorder, chronic; F17.210 Nicotine dependence, cigarettes, uncomplicated; Z71.6 Tobacco abuse counseling; Z20.822 Contact with and (suspected) exposure to COVID-19; Z79.899 Other long term (current) drug therapy
CPT/HCPCS: 36415; 80048; 80076; 80307; 81003; 84443; 85025; 87635; 93005; 96372; 99285; Q0163

== ENCOUNTER 2021-11-03 15:53 | Emergency (ER) | payer MEDICAID, SELFPAY | END 2021-11-03 20:25 | disposition left against medical advice (07) | PROVIDERS: Emergency Provider Emergency Medicine | DX: F31.9 Bipolar disorder, unspecified (principal); F43.12 Post-traumatic stress disorder, chronic; F17.210 Nicotine dependence, cigarettes, uncomplicated; F12.90 Cannabis use, unspecified, uncomplicated ==

== ENCOUNTER 2021-11-04 11:30 | Inpatient (IN) | payer OTHER, MEDICAID, SELFPAY ==
[2021-11-04 12:06] VITALS: BP 177/127; PULSE 93; RESP 16; TEMP 36.7; O2SAT 98; BMI 26.6
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
--- NOTE | 2021-11-04 12:13 | ECG_ITS ---
Test Reason : MEDICAL CLEAR Blood Pressure : / mmHG Vent. Rate : 088 BPM Atrial Rate : 088 BPM P-R Int : 126 ms QRS Dur : 096 ms QT Int : 374 ms P-R-T Axes : 068 091 -03 degrees QTc Int : 452 ms Poor data quality, interpretation may be adversely affected Normal sinus rhythm Rightward axis T wave abnormality, consider inferior ischemia Abnormal ECG When compared with ECG of 15-OCT-2020 14:47, T wave inversion now evident in Inferior leads Referred By: Uyen Tolentino Electronically Signed By:NELLY GONZALES
[2021-11-04 13:24] LABS: MANUAL DIFF FLAG NO
[2021-11-04 13:33] LABS: Basophils Percent Auto 0.3 % (0-2); Eosinophils Absolute Auto 0.2 X10*3/uL (0.0-0.4); Eosinophils Percent Auto 2.2 % (0-4); Hematocrit 48.6 % (42.0-52.0); Hemoglobin 16.1 g/dl (14.0-18.0); Imm Gran Abs Auto 0.01 X10*3/uL (0.00-0.03); Imm Gran Pct Auto 0.1 % (0.0-0.4); Lymphocytes Absolute Auto 1.8 X10*3/uL (1.2-4.9); Lymphocytes Percent Auto 24.9 % (20-40); Mean Corpuscular HGB Conc 33.1 g/dl (31.0-36.0); Mean Corpuscular Hemoglobin 28.3 pg (27.0-33.0); Mean Corpuscular Volume 85.4 fL (80.0-98.0); Mean Platelet Volume 10.1 fL (9.4-12.4); Monocytes Absolute Auto 0.9 X10*3/uL (0.1-1.2); Monocytes Percent Auto 12.2 % (2-11); Neutrophils Absolute Auto 4.4 x10*3/uL (2.0-8.3); Neutrophils Percent Auto 60.3 % (45-73); Platelet Count 277 X10*3/uL (160-400); Red Blood Count 5.69 X10*6/uL (4.60-5.80); Red Cell Distribution Width 13.1 % (11.0-16.0); White Blood Count 7.4 X10*3/uL (4.8-10.8)
[2021-11-04 13:40] LABS: Appearance Urine Clear; Color Urine Dark Yellow; Glucose Urine UA Negative (Negative); Leukocyte Esterase Urine Negative (Negative); Nitrite Urine Negative (Negative); Specific Gravity - Urine 1.025 (1.005-1.025); Urine Blood Negative (Negative); Urine Ketones Trace mg/dL (Negative); Urine Protein Trace mg/dL (Neg-Trace)
[2021-11-04 13:47] LABS: Amphetamine Screen Urine Not Detected (Not Detect); Barbiturates, Urine Not Detected (Not Detect); Benzodiazepines Screen Urine Not Detected (Not Detect); Cannabinoid Screen Urine POSITIVE (Not Detect); Cocaine Screen Urine POSITIVE (Not Detect); Fentanyl, urine Not Detected (Not Detect); Opiate Screen Urine Not Detected (Not Detect); Phencyclidine Screen Urine Not Detected (Not Detect)
[2021-11-04 13:53] LABS: Alanine Aminotransferase 29 U/L (0-40); Albumin Level 4.6 g/dL (3.5-5.0); Alkaline Phosphatase 53 U/L (39-117); Anion Gap 15 (12-20); Aspartate Amino Transferase 29 U/L (5-37); Bilirubin Direct 0.2 mg/dL (0.0-0.5); Bilirubin Total 0.2 mg/dL (0.0-1.0); Blood Urea Nitrogen 18 mg/dL (9-16); Calcium 9.8 mg/dL (8.4-10.2); Carbon Dioxide 26 mmol/L (22-29); Chloride 106 mmol/L (96-108); Creatinine Clr Calc Pharmacy 121.6; Estimated Glomerular Filt Rate > 60; Ethanol < 10 mg/dL; Glucose Random 91 mg/dL (60-115); Potassium 5.1 mmol/L (3.3-5.1); Sodium 142 mmol/L (135-145); Total Protein 7.3 g/dL (6.5-8.0)
[2021-11-04 14:17] LABS: COVID-19 Test Negative (Negative); IDNOW Serial# 55D5AD1C
[2021-11-04] MEDS: Nicotine Polacrilex 2 MG GUM BUCCAL (21:40)
[2021-11-04] MEDS: LORazepam 1 MG TABLET 2 MG PO (22:37)
[2021-11-04 23:40] VITALS: BP 150/108; PULSE 87; RESP 16; TEMP 37.1; O2SAT 98
[2021-11-05 01:01] VITALS: BP 189/117; PULSE 93; RESP 18; TEMP 36.4; O2SAT 97
[2021-11-05] MEDS: hydrOXYzine HCL 25 MG TABLET PO (01:21)
[2021-11-05] MEDS: traZODone HCL 50 MG TABLET PO (01:21)
[2021-11-05] MEDS: cloNIDine HCL 0.1 MG TABLET PO (01:41)
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
[2021-11-05 13:10] VITALS: BP 183/113; PULSE 97; RESP 18; TEMP 36.1; O2SAT 97
[2021-11-05] MEDS: hydroCHLOROthiazide 25 MG TABLET PO (13:23)
[2021-11-05] MEDS: OLANZapine ODT 10 MG TAB.RAPDIS 20 MG TRANSLINGU (13:23)
[2021-11-05] MEDS: LORazepam 1 MG TABLET 2 MG PO (13:23)
[2021-11-05] MEDS: amLODIPine Besylate 5 MG TABLET PO (13:23)
[2021-11-05 16:59] LABS: Troponin-I High Sensitivity 7.9 ng/L (<3.5-35.0)
[2021-11-05 18:11] VITALS: BP 159/100; PULSE 94
[2021-11-05] MEDS: OLANZapine ODT 10 MG TAB.RAPDIS TRANSLINGU (21:24)
[2021-11-05] MEDS: traZODone HCL 100 MG TABLET PO (21:24)
[2021-11-06 09:01] LABS: Estimated Average Glucose 97 mg/dL
[2021-11-06 09:23] VITALS: BP 173/100; PULSE 99; RESP 16; TEMP 36.9; O2SAT 98
[2021-11-06] MEDS: amLODIPine Besylate 5 MG TABLET PO (09:27)
[2021-11-06] MEDS: hydroCHLOROthiazide 12.5 MG TABLET 25 MG PO (09:27)
[2021-11-06] MEDS: OLANZapine ODT 10 MG TAB.RAPDIS TRANSLINGU ×2 (09:27→20:53)
[2021-11-06 09:38] LABS: Alanine Aminotransferase 23 U/L (0-40); Albumin Level 4.4 g/dL (3.5-5.0); Alkaline Phosphatase 55 U/L (39-117); Anion Gap 19 (12-20); Aspartate Amino Transferase 20 U/L (5-37); Bilirubin Total 0.7 mg/dL (0.0-1.0); Blood Urea Nitrogen 19 mg/dL (9-16); Calcium 9.5 mg/dL (8.4-10.2); Carbon Dioxide 26 mmol/L (22-29); Chloride 101 mmol/L (96-108); Cholesterol 204 mg/dL; Creatinine Clr Calc Pharmacy 112.6; Estimated Glomerular Filt Rate > 60; Glucose Fasting 86 mg/dL (60-99); HDL Cholesterol 38 mg/dL; LDL Cholesterol Calculated 145 mg/dl; Potassium 4.5 mmol/L (3.3-5.1); Sodium 141 mmol/L (135-145); Total Protein 7.2 g/dL (6.5-8.0); Triglycerides 108 mg/dL
--- NOTE | 2021-11-06 12:37 | HO.PSYCHPN ---
Subjective Subjective Date of Service: 11/06/21 Reason For Visit: SI Subjective Notes: Conditional Voluntary Interim History: Pt appears slightly calmer, less irritable. He reports less AH. He continues to report feeling hopeles, still has paranoid about people following him. He reports he slept well, better than previous days. Medication Compliance: Yes Review of Systems Review of Systems Constitutional : No Weight loss, No Fever, No Chills, No Night Sweats, No Fatigue, No Malaise ENT/Mouth : No Hearing loss, No Ear Pain, No Nasal Congestion, No Sinus Pain, No Hoarseness, No sore throat, No Rhinorrhea, No Swallowing Difficulty Eyes: No Eye Pain, No Swelling, No Redness, No Foreign Body, No Discharge, No Vision Changes Cardiovascular : No Chest Pain, No SOB, No Dyspnea on Exertion, No Orthopnea, No Edema, No Palpitations Respiratory : No Cough, No Sputum, No Wheezing, No Smoke Exposure, No Dyspnea Gastrointestinal : No Nausea, No Vomiting, No Diarrhea, No Constipation, No abdominal Pain, No Hematochezia, No Melena Genitourinary : no irregular bleeding, No Dysuria, No Urinary Frequency, No Hematuria, No Urinary Incontinence, No Urgency, No Flank Pain, No Urinary Flow Changes, No Hesitancy Musculoskeletal : No joint pain, No Myalgias, No Joint Swelling Skin : No Skin Lesions, No rash Neuro : No Weakness, No Numbness, No Paresthesias, No Loss of Consciousness, No Dizziness, No Headache Psych : Complaining of anxiety, no depression, no SI or HI, wants to stop smoking marijuana and using cocaine Heme/Lymph: No Bruising, No Bleeding,No Lymphadenopathy Endocrine : No Polyuria, No Polydipsia, No Temperature Intolerance Constitutional: Reports difficulty sleeping and Reports excessive sweating Eyes: Reports no additional eye complaints Cardiovascular: Denies chest pain, Denies chest pain with activity, Reports diaphoresis and Denies dyspnea Respiratory: Denies dyspnea Endocrine: Reports excessive sweating Mental Status Exam Mental Status Exam Narrative: Appearance: casually groomed, fair hygiene in NAD Behavior:irritable, guarded psychomotor: increasing agitation and suspiciousness Speech: clear, mumbles at times, regular rate. spontaneous Thought process:tangential, no loose associations Thought content:paranoid delusions, Mood: terrible Affect: suspicious, guarded, irritable SI:passive HI:vague HI towards people following him VH/AH:hearing voices telling him he will Delusions:paranoid, persecutory delusions Insight/judgment:impaired x 2. Memory/cog: alert, oriented x 3. Diagnostics Vital Signs (24Hr): Vital Signs - 24 hr 11/05/21 18:11 11/06/21 09:23 Temperature 98.5 F Pulse Rate 94 99 Respiratory Rate 16 Blood Pressure 159/100 H 173/100 H Pulse Oximetry 98 Oxygen Delivery Method Room Air BMI result Body Mass Index 26.6 Labs Results: 11/04/21 13:17 11/06/21 08:21 Labs: Laboratory Results - last 48 hr 11/05/21 11/05/21 11/06/21 16:09 16:13 08:21 Sodium 141 Potassium 4.5 Chloride 101 Carbon Dioxide 26 Anion Gap 19 BUN 19 H Creatinine 0.95 Estim Creat Clear Calc 112.6 Estimated GFR > 60 Fasting Glucose 86 Estimat Average Glucose Hemoglobin A1c % Calcium 9.5 Total Bilirubin 0.7 AST 20 ALT 23 Alkaline Phosphatase 55 Total Creatine Kinase 241 H Troponin I High Sens 7.9 Total Protein 7.2 Albumin 4.4 Triglycerides 108 Cholesterol 204 LDL Cholesterol, Calc 145 HDL Cholesterol 38 TSH 0.90 11/06/21 08:21 Sodium Potassium Chloride Carbon Dioxide Anion Gap BUN Creatinine Estim Creat Clear Calc Estimated GFR Fasting Glucose Estimat Average Glucose 97 Hemoglobin A1c % 5.0 Calcium Total Bilirubin AST ALT Alkaline Phosphatase Total Creatine Kinase Troponin I High Sens Total Protein Albumin Triglycerides Cholesterol LDL Cholesterol, Calc HDL Cholesterol TSH Medications Medications Current Medications Acetaminophen (Acetaminophen 325 Mg Tablet) 650 mg PO Q6H PRN PRN Reason: Headache/Pain Mild Scale (1-3) Al Hydroxide/Mg Hydroxide (Magnesium Hydrox/Alum Hydrox 30 Ml Oral.Susp) 30 ml PO Q6H PRN PRN Reason: Heartburn/Nausea Amlodipine Besylate (Amlodipine Besylate 5 Mg Tablet) 5 mg PO DAILY CEE; Protocol Last Admin: 11/06/21 09:27 Dose: 5 mg Hydrochlorothiazide (Hydrochlorothiazide 12.5 Mg Tablet) 25 mg PO DAILY CEE; Protocol Last Admin: 11/06/21 09:27 Dose: 25 mg Hydroxyzine HCl (Hydroxyzine Hcl 25 Mg Tablet) 25 mg PO Q6H PRN PRN Reason: Anxiety Last Admin: 11/05/21 01:21 Dose: 25 mg Lorazepam (Lorazepam 1 Mg Tablet) 2 mg PO Q6H PRN PRN Reason: agitation Magnesium Hydroxide (Milk Of Magnesia 30 Ml Oral.Susp) 30 ml PO DAILY PRN PRN Reason: Constipation Nicotine Polacrilex (Nicotine Polacrilex 2 Mg Gum) 2 mg BUCCAL QID PRN PRN Reason: Nicotine Cravings Last Admin: 11/04/21 21:40 Dose: 2 mg Olanzapine (Olanzapine Odt 10 Mg Tab.Rapdis) 10 mg TRANSLINGU BID CEE Last Admin: 11/06/21 09:27 Dose: 10 mg Trazodone HCl (Trazodone Hcl 100 Mg Tablet) 100 mg PO BEDTIME PRN PRN Reason: Insomnia Last Admin: 11/05/21 21:24 Dose: 100 mg Allergies Allergies Allergy/AdvReac Type Severity Reaction Status Date / Time No Known Allergies Allergy Verified 10/13/20 00:22 Assessment & Plan Assessment & Plan (1) Psychoactive substance-induced psychosis: Status: Acute Code(s): F19.959 - Other psychoactive substance use, unspecified with psychoactive substance-induced psychotic disorder, unspecified (2) Cocaine use disorder, moderate, dependence: Status: Acute Code(s): F14.20 - Cocaine dependence, uncomplicated (3) Opioid use disorder, mild, abuse: Status: Acute Code(s): F11.10 - Opioid abuse, uncomplicated (4) Cannabis use disorder, moderate, in early remission: Status: Acute Code(s): F12.21 - Cannabis dependence, in remission Plan Mr. Navarro is a 31 year-old male with hx of cocaine, anabolic steroid and opioid use dependence who self presented to [facility] reporting SI in context of AH/VH, paranoid with ongoing use of cocaine and cannabis. Utox positive for cocaine, cannabinoids. Pt presents as paranoid, irritable, guarded, AH/VH, increasingly more suspicious towards staff in the hospital. Per records, no prior hx of psychosis or delusions (but will confirmed this once collateral information gathered). We discussed risks, benefits and alternative treatment options, he agrees to start olanzapine 10mg po BID, ativan prn for agitation (will not be d/c on this medication but needed for stabilization). PLAN 11/06- continue current medications, pt will not be discharged on any controlled substance but does need for stabilization prn dose of ativan if extremely agitated s/s to psychosis most likely induced by substances. I spent minutes with the patient and/or on the patient floor today, greater than?50% of which was spent counseling/coordinating care. Reason for contiued inpatient stay Substantial Risk for: harm to self, harm to others and inability to function
--- NOTE | 2021-11-06 16:53 | PC.NURSE ---
Per pt he smokes 1PPD cigarettes and is interested in nicotine replacement
[2021-11-06] MEDS: Nicotine Polacrilex 2 MG GUM BUCCAL (20:51)
[2021-11-06] MEDS: cloNIDine HCL 0.1 MG TABLET PO (20:51)
[2021-11-06 20:54] VITALS: BP 179/101; PULSE 114; TEMP 36.7; O2SAT 114
[2021-11-07 06:00] VITALS: BP 142/97; PULSE 92; RESP 20; TEMP 36.2; O2SAT 98
[2021-11-07] MEDS: amLODIPine Besylate 5 MG TABLET PO (08:44)
[2021-11-07] MEDS: hydroCHLOROthiazide 12.5 MG TABLET 25 MG PO (08:45)
[2021-11-07] MEDS: OLANZapine ODT 10 MG TAB.RAPDIS TRANSLINGU ×2 (08:45→21:21)
[2021-11-07] MEDS: Nicotine Polacrilex 2 MG GUM BUCCAL ×3 (09:10→23:54)
[2021-11-07] MEDS: LORazepam 1 MG TABLET 2 MG PO ×2 (13:22→21:21)
--- NOTE | 2021-11-07 15:43 | P.PNPSI_ITS ---
Subjective Subjective Date of Service: 11/07/21 Reason For Visit: SI Subjective Notes: Conditional Voluntary Interim History: Pt reports feeling much restless. He denies hearing voices, reports he is so scare as to how he was functioning and how confused and psychotic he became with excessive substance use. He denies SI/HI. He reports he wants to continue substance use treatment. He reports sister and mother do use substances so living with them is not conducive of recovery. Medication Compliance: Yes Side effects from medications: No Review of Systems Review of Systems Constitutional : No Weight loss, No Fever, No Chills, No Night Sweats, No Fatigue, No Malaise ENT/Mouth : No Hearing loss, No Ear Pain, No Nasal Congestion, No Sinus Pain, No Hoarseness, No sore throat, No Rhinorrhea, No Swallowing Difficulty Eyes: No Eye Pain, No Swelling, No Redness, No Foreign Body, No Discharge, No Vision Changes Cardiovascular : No Chest Pain, No SOB, No Dyspnea on Exertion, No Orthopnea, No Edema, No Palpitations Respiratory : No Cough, No Sputum, No Wheezing, No Smoke Exposure, No Dyspnea Gastrointestinal : No Nausea, No Vomiting, No Diarrhea, No Constipation, No abdominal Pain, No Hematochezia, No Melena Genitourinary : no irregular bleeding, No Dysuria, No Urinary Frequency, No Hematuria, No Urinary Incontinence, No Urgency, No Flank Pain, No Urinary Flow Changes, No Hesitancy Musculoskeletal : No joint pain, No Myalgias, No Joint Swelling Skin : No Skin Lesions, No rash Neuro : No Weakness, No Numbness, No Paresthesias, No Loss of Consciousness, No Dizziness, No Headache Psych : Complaining of anxiety, no depression, no SI or HI, wants to stop smoking marijuana and using cocaine Heme/Lymph: No Bruising, No Bleeding,No Lymphadenopathy Endocrine : No Polyuria, No Polydipsia, No Temperature Intolerance Constitutional: Reports difficulty sleeping and Reports excessive sweating Eyes: Reports no additional eye complaints Cardiovascular: Denies chest pain, Denies chest pain with activity, Reports diaphoresis and Denies dyspnea Respiratory: Denies dyspnea Endocrine: Reports excessive sweating Mental Status Exam Mental Status Exam Narrative: Appearance: casually groomed, fair hygiene in NAD Behavior:irritable, guarded psychomotor: increasing agitation and suspiciousness Speech: clear, mumbles at times, regular rate. spontaneous Thought process:tangential, no loose associations Thought content:paranoid delusions, Mood: terrible Affect: suspicious, guarded, irritable SI:passive HI:vague HI towards people following him VH/AH:hearing voices telling him he will Delusions:paranoid, persecutory delusions Insight/judgment:impaired x 2. Memory/cog: alert, oriented x 3. Diagnostics Vital Signs (24Hr): Vital Signs - 24 hr 11/06/21 20:54 11/07/21 06:00 Temperature 98.1 F 97.2 F Pulse Rate 114 H 92 Respiratory Rate 20 Blood Pressure 179/101 H 142/97 H Pulse Oximetry 114 H 98 Oxygen Delivery Method Room Air Room Air BMI result Body Mass Index 26.6 Labs Results: 11/04/21 13:17 11/06/21 08:21 Labs: Laboratory Results - last 48 hr 11/05/21 11/05/21 11/06/21 16:09 16:13 08:21 Sodium 141 Potassium 4.5 Chloride 101 Carbon Dioxide 26 Anion Gap 19 BUN 19 H Creatinine 0.95 Estim Creat Clear Calc 112.6 Estimated GFR > 60 Fasting Glucose 86 Estimat Average Glucose Hemoglobin A1c % Calcium 9.5 Total Bilirubin 0.7 AST 20 ALT 23 Alkaline Phosphatase 55 Total Creatine Kinase 241 H Troponin I High Sens 7.9 Total Protein 7.2 Albumin 4.4 Triglycerides 108 Cholesterol 204 LDL Cholesterol, Calc 145 HDL Cholesterol 38 TSH 0.90 11/06/21 08:21 Sodium Potassium Chloride Carbon Dioxide Anion Gap BUN Creatinine Estim Creat Clear Calc Estimated GFR Fasting Glucose Estimat Average Glucose 97 Hemoglobin A1c % 5.0 Calcium Total Bilirubin AST ALT Alkaline Phosphatase Total Creatine Kinase Troponin I High Sens Total Protein Albumin Triglycerides Cholesterol LDL Cholesterol, Calc HDL Cholesterol TSH Medications Medications Current Medications Acetaminophen (Acetaminophen 325 Mg Tablet) 650 mg PO Q6H PRN PRN Reason: Headache/Pain Mild Scale (1-3) Al Hydroxide/Mg Hydroxide (Magnesium Hydrox/Alum Hydrox 30 Ml Oral.Susp) 30 ml PO Q6H PRN PRN Reason: Heartburn/Nausea Amlodipine Besylate (Amlodipine Besylate 5 Mg Tablet) 5 mg PO DAILY CEE; Protocol Last Admin: 11/07/21 08:44 Dose: 5 mg Clonidine HCl (Clonidine Hcl 0.1 Mg Tablet) 0.1 mg PO TID PRN; Protocol PRN Reason: hyperarousal, HTN Last Admin: 11/06/21 20:51 Dose: 0.1 mg Hydrochlorothiazide (Hydrochlorothiazide 12.5 Mg Tablet) 25 mg PO DAILY CEE; Protocol Last Admin: 11/07/21 08:45 Dose: 25 mg Hydroxyzine HCl (Hydroxyzine Hcl 25 Mg Tablet) 25 mg PO Q6H PRN PRN Reason: Anxiety Last Admin: 11/05/21 01:21 Dose: 25 mg Lorazepam (Lorazepam 1 Mg Tablet) 2 mg PO Q6H PRN PRN Reason: agitation Last Admin: 11/07/21 13:22 Dose: 2 mg Magnesium Hydroxide (Milk Of Magnesia 30 Ml Oral.Susp) 30 ml PO DAILY PRN PRN Reason: Constipation Nicotine Polacrilex (Nicotine Polacrilex 2 Mg Gum) 2 mg BUCCAL QID PRN PRN Reason: Nicotine Cravings Last Admin: 11/07/21 09:10 Dose: 2 mg Olanzapine (Olanzapine Odt 10 Mg Tab.Rapdis) 10 mg TRANSLINGU BID CEE Last Admin: 11/07/21 08:45 Dose: 10 mg Trazodone HCl (Trazodone Hcl 100 Mg Tablet) 100 mg PO BEDTIME PRN PRN Reason: Insomnia Last Admin: 11/05/21 21:24 Dose: 100 mg Allergies Allergies Allergy/AdvReac Type Severity Reaction Status Date / Time No Known Allergies Allergy Verified 10/13/20 00:22 Assessment & Plan Assessment & Plan (1) Psychoactive substance-induced psychosis: Status: Acute Code(s): F19.959 - Other psychoactive substance use, unspecified with psychoactive substance-induced psychotic disorder, unspecified (2) Cocaine use disorder, moderate, dependence: Status: Acute Code(s): F14.20 - Cocaine dependence, uncomplicated (3) Opioid use disorder, mild, abuse: Status: Acute Code(s): F11.10 - Opioid abuse, uncomplicated (4) Cannabis use disorder, moderate, in early remission: Status: Acute Code(s): F12.21 - Cannabis dependence, in remission Plan Mr. Navarro is a 31 year-old male with hx of cocaine, anabolic steroid and opioid use dependence who self presented to [facility] [place] SI in context of AH/VH, paranoid with ongoing use of cocaine and cannabis. Utox positive for cocaine, cannabinoids. Pt presents as paranoid, irritable, guarded, AH/VH, increasingly more suspicious towards staff in the hospital. Per records, no prior hx of psychosis or delusions (but will confirmed this once collateral information gathered). We discussed risks, benefits and alternative treatment options, he agrees to start olanzapine 10mg po BID, ativan prn for agitation (will not be d/c on this medication but needed for stabilization). PLAN 11/06- continue current medications, pt will not be discharged on any controlled substance but does need for stabilization prn dose of ativan if extremely agitated s/s to psychosis most likely induced by substances. 11/07 continue current medications. I spent minutes with the patient and/or on the patient floor today, greater than?50% of which was spent counseling/coordinating care. Reason for contiued inpatient stay Substantial Risk for: inability to function
[2021-11-07] MEDS: Famotidine 20 MG TABLET PO ×2 (17:10→21:21)
[2021-11-07 21:15] VITALS: BP 148/101; PULSE 100; RESP 20; TEMP 36.8; O2SAT 99
[2021-11-07] MEDS: traZODone HCL 100 MG TABLET PO ×2 (21:21→23:53)
[2021-11-07] MEDS: cloNIDine HCL 0.1 MG TABLET PO (21:21)
[2021-11-08 06:00] VITALS: BP 174/100; PULSE 100; RESP 20; TEMP 36.9; O2SAT 99
[2021-11-08] MEDS: Nicotine Polacrilex 2 MG GUM BUCCAL ×4 (07:33→23:15)
[2021-11-08] MEDS: OLANZapine ODT 10 MG TAB.RAPDIS TRANSLINGU ×2 (10:18→20:40)
[2021-11-08] MEDS: cloNIDine HCL 0.1 MG TABLET PO ×2 (10:18→20:41)
[2021-11-08] MEDS: amLODIPine Besylate 5 MG TABLET PO (10:18)
[2021-11-08] MEDS: Famotidine 20 MG TABLET PO ×2 (10:19→20:42)
[2021-11-08] MEDS: hydroCHLOROthiazide 12.5 MG TABLET 25 MG PO (10:19)
[2021-11-08] MEDS: hydrOXYzine HCL 25 MG TABLET PO ×2 (10:19→20:41)
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
[2021-11-08] MEDS: OLANZapine 10 MG TABLET PO (12:30)
[2021-11-08 20:40] VITALS: BP 169/88; PULSE 90; RESP 18; TEMP 36.6; O2SAT 99
[2021-11-08] MEDS: traZODone HCL 100 MG TABLET PO (20:41)
[2021-11-08] MEDS: LORazepam 1 MG TABLET 2 MG PO (20:41)
[2021-11-09 08:20] VITALS: BP 148/86; PULSE 81; RESP 18; TEMP 36.8; O2SAT 97
[2021-11-09] MEDS: OLANZapine ODT 10 MG TAB.RAPDIS TRANSLINGU ×2 (08:24→20:31)
[2021-11-09] MEDS: hydroCHLOROthiazide 12.5 MG TABLET 25 MG PO (08:24)
[2021-11-09] MEDS: Famotidine 20 MG TABLET PO ×2 (08:24→20:31)
[2021-11-09] MEDS: amLODIPine Besylate 5 MG TABLET PO (08:24)
[2021-11-09] MEDS: Nicotine Polacrilex 2 MG GUM BUCCAL ×4 (08:27→20:41)
--- NOTE | 2021-11-09 12:18 | HO.PSYCHPN ---
Subjective Subjective Date of Service: 11/09/21 Reason For Visit: SI Subjective Notes: Conditional Voluntary Interim History: The nursing staff reported the patient slept well, he was pleasant and cooperative today in the morning. Yesterday he was angry and agitated and wanted to be discharged that same day but he was redirected by security staff. So far no new symptoms. On interview the patient denies new symptoms he was superficially cooperative but pleasant Mental Status Exam Mental Status Exam Patient Appearance: Well Grooomed Patient Orientation: Person Level of Consciousness: Awake Patient Behavior: Cooperative Mood Description: Labile Affect Description: Constricted Patient Cognition Impaired: No Ability to Follow Directions: Good Speech Pattern: Clear Hallucinations: None Delusions: Not Present Thought Process: Linear Thought Content: positive for Circumstantial Judgement: Fair Diagnostics Vital Signs (24Hr): Vital Signs - 24 hr 11/08/21 20:40 11/09/21 08:20 Temperature 97.9 F 98.3 F Pulse Rate 90 81 Respiratory Rate 18 18 Blood Pressure 169/88 H 148/86 H Pulse Oximetry 99 97 Oxygen Delivery Method Room Air Room Air BMI result Body Mass Index 26.6 Labs Results: 11/04/21 13:17 11/06/21 08:21 Medications Medications Current Medications Acetaminophen (Acetaminophen 325 Mg Tablet) 650 mg PO Q6H PRN PRN Reason: Headache/Pain Mild Scale (1-3) Al Hydroxide/Mg Hydroxide (Magnesium Hydrox/Alum Hydrox 30 Ml Oral.Susp) 30 ml PO Q6H PRN PRN Reason: Heartburn/Nausea Amlodipine Besylate (Amlodipine Besylate 5 Mg Tablet) 5 mg PO DAILY CEE; Protocol Last Admin: 11/09/21 08:24 Dose: 5 mg Clonidine HCl (Clonidine Hcl 0.1 Mg Tablet) 0.1 mg PO TID PRN; Protocol PRN Reason: hyperarousal, HTN Last Admin: 11/08/21 20:41 Dose: 0.1 mg Famotidine (Famotidine 20 Mg Tablet) 20 mg PO BID CEE Last Admin: 11/09/21 08:24 Dose: 20 mg Hydrochlorothiazide (Hydrochlorothiazide 12.5 Mg Tablet) 25 mg PO DAILY CEE; Protocol Last Admin: 11/09/21 08:24 Dose: 25 mg Hydroxyzine HCl (Hydroxyzine Hcl 25 Mg Tablet) 25 mg PO Q6H PRN PRN Reason: Anxiety Last Admin: 11/08/21 20:41 Dose: 25 mg Lorazepam (Lorazepam 1 Mg Tablet) 2 mg PO Q6H PRN PRN Reason: severe anxiety Last Admin: 11/08/21 20:41 Dose: 2 mg Magnesium Hydroxide (Milk Of Magnesia 30 Ml Oral.Susp) 30 ml PO DAILY PRN PRN Reason: Constipation Nicotine Polacrilex (Nicotine Polacrilex 2 Mg Gum) 2 mg BUCCAL Q2H PRN PRN Reason: Nicotine Cravings Last Admin: 11/09/21 08:27 Dose: 2 mg Olanzapine (Olanzapine Odt 10 Mg Tab.Rapdis) 10 mg TRANSLINGU BID CEE Last Admin: 11/09/21 08:24 Dose: 10 mg Olanzapine (Olanzapine 10 Mg Tablet) 10 mg PO Q6H PRN PRN Reason: agitation Last Admin: 11/08/21 12:30 Dose: 10 mg Trazodone HCl (Trazodone Hcl 100 Mg Tablet) 100 mg PO BEDTIME PRN PRN Reason: Insomnia Last Admin: 11/08/21 20:41 Dose: 100 mg Allergies Allergies Allergy/AdvReac Type Severity Reaction Status Date / Time No Known Allergies Allergy Verified 10/13/20 00:22 Assessment & Plan Assessment & Plan (1) Psychoactive substance-induced psychosis: Status: Acute Code(s): F19.959 - Other psychoactive substance use, unspecified with psychoactive substance-induced psychotic disorder, unspecified (2) Cocaine use disorder, moderate, dependence: Status: Acute Code(s): F14.20 - Cocaine dependence, uncomplicated (3) Opioid use disorder, mild, abuse: Status: Acute Code(s): F11.10 - Opioid abuse, uncomplicated (4) Cannabis use disorder, moderate, in early remission: Status: Acute Code(s): F12.21 - Cannabis dependence, in remission Plan Mr. Navarro is a 31 year-old male with hx of cocaine, anabolic steroid and opioid use dependence who self presented to [facility] [place] reporting SI in context of AH/VH, paranoid with ongoing use of cocaine and cannabis. Utox positive for cocaine, cannabinoids. Pt presents as paranoid, irritable, guarded, AH/VH, increasingly more suspicious towards staff in the hospital. Per records, no prior hx of psychosis or delusions (but will confirmed this once collateral information gathered). We discussed risks, benefits and alternative treatment options, he agrees to start olanzapine 10mg po BID, ativan prn for agitation (will not be d/c on this medication but needed for stabilization). PLAN 11/06- continue current medications, pt will not be discharged on any controlled substance but does need for stabilization prn dose of ativan if extremely agitated s/s to psychosis most likely induced by substances. 11/07 continue current medications. Over the weekend, no changes I spent ___20___ minutes with the patient and/or on the patient floor today, greater than?50% of which was spent counseling/coordinating care. Reason for contiued inpatient stay Substantial Risk for: inability to function, rapid decompensation and med/psych decompensation
[2021-11-09] MEDS: OLANZapine 10 MG TABLET PO (12:47)
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
[2021-11-09 20:20] VITALS: BP 165/106; PULSE 84; RESP 16; TEMP 36.8; O2SAT 100
[2021-11-09] MEDS: cloNIDine HCL 0.1 MG TABLET PO (20:31)
[2021-11-09] MEDS: traZODone HCL 100 MG TABLET PO (20:32)
[2021-11-10 08:36] VITALS: BP 168/96; PULSE 80; RESP 16; TEMP 36.6; O2SAT 100
[2021-11-10] MEDS: amLODIPine Besylate 5 MG TABLET PO (08:38)
[2021-11-10] MEDS: OLANZapine ODT 10 MG TAB.RAPDIS TRANSLINGU ×2 (08:38→20:26)
[2021-11-10] MEDS: hydroCHLOROthiazide 12.5 MG TABLET 25 MG PO (08:38)
[2021-11-10] MEDS: Famotidine 20 MG TABLET PO ×2 (08:39→20:26)
[2021-11-10] MEDS: Nicotine Polacrilex 2 MG GUM BUCCAL ×3 (09:14→22:27)
--- NOTE | 2021-11-10 12:31 | P.PNPSI_ITS ---
Subjective Subjective Date of Service: 11/10/21 Reason For Visit: SI Subjective Notes: Conditional Voluntary and 3 Day Interim History: Met pt with EUGENIA Meyer and [employer]. Pt reports less AH, less paranoid. He reports feeling more rested, and optimistic. He denies SI/HI. He agrees to follow up with IOP for substance use disorder or CSS. Per nursing, he has been visible on the unit, no behavioral concerns. Medication Compliance: Yes Side effects from medications: No Attending Groups: Yes Review of Systems Review of Systems Constitutional : No Weight loss, No Fever, No Chills, No Night Sweats, No Fatigu e, No Malaise ENT/Mouth : No Hearing loss, No Ear Pain, No Nasal Congestion, No Sinus Pain, No Hoarseness, No sore throat, No Rhinorrhea, No Swallowing Difficulty Eyes: No Eye Pain, No Swelling, No Redness, No Foreign Body, No Discharge, No Vision Changes Cardiovascular : No Chest Pain, No SOB, No Dyspnea on Exertion, No Orthopnea, No Edema, No Palpitations Respiratory : No Cough, No Sputum, No Wheezing, No Smoke Exposure, No Dyspnea Gastrointestinal : No Nausea, No Vomiting, No Diarrhea, No Constipation, No abdominal Pain, No Hematochezia, No Melena Genitourinary : no irregular bleeding, No Dysuria, No Urinary Frequency, No Hematuria, No Urinary Incontinence, No Urgency, No Flank Pain, No Urinary Flow Changes, No Hesitancy Musculoskeletal : No joint pain, No Myalgias, No Joint Swelling Skin : No Skin Lesions, No rash Neuro : No Weakness, No Numbness, No Paresthesias, No Loss of Consciousness, No Dizziness, No Headache Psych : Complaining of anxiety, no depression, no SI or HI, wants to stop smoking marijuana and using cocaine Heme/Lymph: No Bruising, No Bleeding,No Lymphadenopathy Endocrine : No Polyuria, No Polydipsia, No Temperature Intolerance Constitutional: Reports difficulty sleeping and Reports excessive sweating Eyes: Reports no additional eye complaints Cardiovascular: Denies chest pain, Denies chest pain with activity, Reports diaphoresis and Denies dyspnea Respiratory: Denies dyspnea Endocrine: Reports excessive sweating Mental Status Exam Mental Status Exam Narrative: Appearance: casually groomed, fair hygiene in NAD Behavior:cooperative psychomotor: no agitation or retardation noted Speech: clear, regular rate/rhythm/volume, spontaneous Thought process: linear Thought content:no overt s/s of psychosis or paranoia, future oriented Mood: better Affect: congruent, non labile SI:none HI:none VH/AH:less AH Delusions:none Insight/judgment:improving x 2. Memory/cog: alert, oriented x 3. Diagnostics Vital Signs (24Hr): Vital Signs - 24 hr 11/09/21 20:20 11/10/21 08:36 Temperature 98.3 F 98 F Pulse Rate 84 80 Respiratory Rate 16 16 Blood Pressure 165/106 H 168/96 H Pulse Oximetry 100 100 Oxygen Delivery Method Room Air Room Air BMI result Body Mass Index 26.6 Labs Results: 11/04/21 13:17 11/06/21 08:21 Medications Medications Current Medications Acetaminophen (Acetaminophen 325 Mg Tablet) 650 mg PO Q6H PRN PRN Reason: Headache/Pain Mild Scale (1-3) Al Hydroxide/Mg Hydroxide (Magnesium Hydrox/Alum Hydrox 30 Ml Oral.Susp) 30 ml PO Q6H PRN PRN Reason: Heartburn/Nausea Amlodipine Besylate (Amlodipine Besylate 5 Mg Tablet) 5 mg PO DAILY CEE; Protocol Last Admin: 11/10/21 08:38 Dose: 5 mg Clonidine HCl (Clonidine Hcl 0.1 Mg Tablet) 0.1 mg PO TID PRN; Protocol PRN Reason: hyperarousal, HTN Last Admin: 11/09/21 20:31 Dose: 0.1 mg Famotidine (Famotidine 20 Mg Tablet) 20 mg PO BID CEE Last Admin: 11/10/21 08:39 Dose: 20 mg Hydrochlorothiazide (Hydrochlorothiazide 12.5 Mg Tablet) 25 mg PO DAILY CEE; Protocol Last Admin: 11/10/21 08:38 Dose: 25 mg Hydroxyzine HCl (Hydroxyzine Hcl 25 Mg Tablet) 25 mg PO Q6H PRN PRN Reason: Anxiety Last Admin: 11/08/21 20:41 Dose: 25 mg Lorazepam (Lorazepam 1 Mg Tablet) 2 mg PO Q6H PRN PRN Reason: severe anxiety Last Admin: 11/08/21 20:41 Dose: 2 mg Magnesium Hydroxide (Milk Of Magnesia 30 Ml Oral.Susp) 30 ml PO DAILY PRN PRN Reason: Constipation Nicotine Polacrilex (Nicotine Polacrilex 2 Mg Gum) 2 mg BUCCAL Q2H PRN PRN Reason: Nicotine Cravings Last Admin: 11/10/21 09:14 Dose: 2 mg Olanzapine (Olanzapine Odt 10 Mg Tab.Rapdis) 10 mg TRANSLINGU BID CEE Last Admin: 11/10/21 08:38 Dose: 10 mg Olanzapine (Olanzapine 10 Mg Tablet) 10 mg PO Q6H PRN PRN Reason: agitation Last Admin: 11/09/21 12:47 Dose: 10 mg Trazodone HCl (Trazodone Hcl 100 Mg Tablet) 100 mg PO BEDTIME PRN PRN Reason: Insomnia Last Admin: 11/09/21 20:32 Dose: 100 mg Allergies Allergies Allergy/AdvReac Type Severity Reaction Status Date / Time No Known Allergies Allergy Verified 10/13/20 00:22 Assessment & Plan Assessment & Plan (1) Psychoactive substance-induced psychosis: Status: Acute Code(s): F19.959 - Other psychoactive substance use, unspecified with psychoactive substance-induced psychotic disorder, unspecified (2) Cocaine use disorder, moderate, dependence: Status: Acute Code(s): F14.20 - Cocaine dependence, uncomplicated (3) Opioid use disorder, mild, abuse: Status: Acute Code(s): F11.10 - Opioid abuse, uncomplicated (4) Cannabis use disorder, moderate, in early remission: Status: Acute Code(s): F12.21 - Cannabis dependence, in remission Plan Mr. Navarro is a 31 year-old male with hx of cocaine, anabolic steroid and opioid use dependence who self presented to [facility] [place] reporting SI in context of AH/VH, paranoid with ongoing use of cocaine and cannabis. Utox positive for cocaine, cannabinoids. Pt presents as paranoid, irritable, guarded, AH/VH, increasingly more suspicious towards staff in the hospital. Per records, no prior hx of psychosis or delusions (but will confirmed this once collateral information gathered). We discussed risks, benefits and alternative treatment options, he agrees to start olanzapine 10mg po BID, ativan prn for agitation (will not be d/c on this medication but needed for stabilization). PLAN 11/06- continue current medications, pt will not be discharged on any controlled substance but does need for stabilization prn dose of ativan if extremely agitated s/s to psychosis most likely induced by substances. 11/07 continue current medications. Over the weekend, no changes 11/10 continue current meds, I spent minutes with the patient and/or on the patient floor today, greater than?50% of which was spent counseling/coordinating care. Reason for contiued inpatient stay Substantial Risk for: harm to others and inability to function
[2021-11-10 20:15] VITALS: BP 165/106; PULSE 87; RESP 18; TEMP 36.8; O2SAT 97
[2021-11-10] MEDS: traZODone HCL 100 MG TABLET PO (20:26)
[2021-11-10] MEDS: cloNIDine HCL 0.1 MG TABLET PO (20:26)
[2021-11-11] MEDS: Nicotine Polacrilex 2 MG GUM BUCCAL ×2 (06:28→08:08)
[2021-11-11 08:01] VITALS: BP 175/99; PULSE 88; RESP 16; TEMP 36.6; O2SAT 97
[2021-11-11] MEDS: hydroCHLOROthiazide 12.5 MG TABLET 25 MG PO (08:06)
[2021-11-11] MEDS: OLANZapine ODT 10 MG TAB.RAPDIS TRANSLINGU (08:07)
[2021-11-11] MEDS: Famotidine 20 MG TABLET PO (08:07)
[2021-11-11] MEDS: amLODIPine Besylate 5 MG TABLET PO (08:08)
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
== END 2021-11-11 11:11 | disposition home health service (06) | DRG 773 ==
LOC: HO.ED 14:06 → HO.PADLT16 11-05 00:38
PROVIDERS: Admitting Provider Psychiatry & Neurology Psychiatry; Emergency Provider Emergency Medicine; PCP Nurse Practitioner Family; Visit Provider Social Worker
DX: F19.159 Other psychoactive substance abuse with psychoactive substance-induced psychotic disorder, unspecified (principal); F11.10 Opioid abuse, uncomplicated; R45.851 Suicidal ideations; R45.850 Homicidal ideations; F14.20 Cocaine dependence, uncomplicated; F17.210 Nicotine dependence, cigarettes, uncomplicated; F43.12 Post-traumatic stress disorder, chronic; Z20.822 Contact with and (suspected) exposure to COVID-19; Z71.6 Tobacco abuse counseling; Z79.899 Other long term (current) drug therapy
CPT/HCPCS: 36415; 80048; 80053; 80061; 80076; 80307; 81003; 82077; 82550; 83036; 84443; 84484; 85025; 87635; 90686; 93005; 99285

== ENCOUNTER 2023-03-18 14:14 | Inpatient (IN) | payer OTHER, SELFPAY ==
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
[2023-03-18 14:38] VITALS: BP 149/106; PULSE 97; RESP 16; TEMP 36.3; O2SAT 96; BMI 26.4
[2023-03-18 15:10] LABS: MANUAL DIFF FLAG NO
[2023-03-18 15:13] LABS: Basophils Percent Auto 0.3 % (0-2); Eosinophils Percent Auto 0.1 % (0-4); Hematocrit 44.5 % (42.0-52.0); Hemoglobin 15.1 g/dl (14.0-18.0); Imm Gran Abs Auto 0.02 X10*3/uL (0.00-0.03); Imm Gran Pct Auto 0.2 % (0.0-0.4); Lymphocytes Absolute Auto 1.4 X10*3/uL (1.2-4.9); Lymphocytes Percent Auto 12.6 % (20-40); Mean Corpuscular HGB Conc 33.9 g/dl (31.0-36.0); Mean Corpuscular Volume 85.4 fL (80.0-98.0); Mean Platelet Volume 9.5 fL (9.4-12.4); Monocytes Absolute Auto 0.7 X10*3/uL (0.1-1.2); Monocytes Percent Auto 6.4 % (2-11); Neutrophils Absolute Auto 8.8 x10*3/uL (2.0-8.3); Neutrophils Percent Auto 80.4 % (45-73); Platelet Count 286 X10*3/uL (160-400); Red Blood Count 5.21 X10*6/uL (4.60-5.80); Red Cell Distribution Width 13.4 % (11.0-16.0); White Blood Count 10.9 X10*3/uL (4.8-10.8)
[2023-03-18 15:14] LABS: Appearance Urine Clear; Color Urine Dark Yellow; Glucose Urine UA Negative (Negative); Leukocyte Esterase Urine Negative (Negative); Nitrite Urine Negative (Negative); PH 5.5 (5.0-9.0); Specific Gravity - Urine >= 1.030 (1.005-1.025); Urine Blood Negative (Negative); Urine Ketones Trace mg/dL (Negative); Urine Protein Negative (Neg-Trace)
[2023-03-18 15:22] LABS: Amphetamine Screen Urine Not Detected (Not Detect); Barbiturates, Urine Not Detected (Not Detect); Benzodiazepines Screen Urine Not Detected (Not Detect); Cannabinoid Screen Urine POSITIVE (Not Detect); Cocaine Screen Urine POSITIVE (Not Detect); Fentanyl, urine Not Detected (Not Detect); Opiate Screen Urine Not Detected (Not Detect); Phencyclidine Screen Urine Not Detected (Not Detect)
[2023-03-18 15:28] LABS: COVID-19 Test Negative (Negative); IDNOW Serial# 9DB6401D
[2023-03-18 15:29] LABS: Alanine Aminotransferase 29 U/L (0-40); Albumin Level 4.6 g/dL (3.5-5.0); Alkaline Phosphatase 57 U/L (39-117); Anion Gap 12 (12-20); Aspartate Amino Transferase 19 U/L (5-37); Bilirubin Total 0.3 mg/dL (0.0-1.0); Blood Urea Nitrogen 18 mg/dL (9-16); Carbon Dioxide 27 mmol/L (22-29); Chloride 105 mmol/L (96-108); Creatinine Clr Calc Pharmacy 153.1; Estimated Glomerular Filt Rate > 60; Ethanol < 10 mg/dL; Glucose Random 93 mg/dL (60-115); Potassium 4.5 mmol/L (3.3-5.1); Sodium 139 mmol/L (135-145); Total Protein 7.7 g/dL (6.5-8.0)
[2023-03-18] MEDS: Nicotine Polacrilex 2 MG GUM BUCCAL ×2 (15:59→22:39)
--- NOTE | 2023-03-18 15:59 | PC.NURSE ---
Bryson was brought in on a section 12 from the community where he reports AH of a terrorist telling him to blow up buildings and stuff . Bryson reports he has not taken his Invega and that he doesn't feel it's helping and that when he is on it he feels like his fuse is shorter . Arrived in handcuffs but was able to be calm and cooperative during the admission process. Bryson is currently sitting in the back on the couch. Appetite is good and he has only requested nicotine gum.
--- NOTE | 2023-03-18 18:17 | PHA.MEDREC ---
Pharmacy Consult ? Medication Reconciliation Pharmacy has reviewed the medication reconciliation completed by
--- NOTE | 2023-03-18 20:22 | MHC.CARE ---
CARE Team Evaluation complete. Pt is an [facility] bedsearch on a 12A. ED provider, POD RN and Pt are aware.
[2023-03-18] MEDS: hydrOXYzine HCL 50 MG TABLET PO (20:24)
[2023-03-18] MEDS: LORazepam 1 MG TABLET PO (22:39)
[2023-03-18] MEDS: OLANZapine 10 MG TABLET PO (22:47)
--- NOTE | 2023-03-18 22:51 | PC.NURSE ---
patient started banging head on wall made statements indicating delusions/hallucinations, pursued order for po zyprexa, (jett of rx)
--- NOTE | 2023-03-19 07:42 | ECG_ITS ---
Test Reason : amd Blood Pressure : / mmHG Vent. Rate : 078 BPM Atrial Rate : 078 BPM P-R Int : 174 ms QRS Dur : 092 ms QT Int : 426 ms P-R-T Axes : 032 -16 044 degrees QTc Int : 485 ms Sinus rhythm with occasional Premature ventricular complexes Prolonged QT Abnormal ECG When compared with ECG of 04-NOV-2021 23:29, Premature ventricular complexes are now Present Questionable change in QRS axis Referred By: Nelli Sheldon Electronically Signed By:ANU CAMARENA
[2023-03-19] MEDS: Midazolam HCl/PF 2 MG/2 ML VIAL 4 MG IM (09:55)
[2023-03-19] MEDS: OLANZapine 10 MG VIAL IM (09:55)
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
--- NOTE | 2023-03-19 12:08 | MHC.CARE ---
CARE Team received a call from Licha Navarro [phone], who reported Pt has been unwell over the past 6 weeks. Pt was recently hospitalized at [facility] and stepdown to [facility] resp[facility]. Exact details are unclear given Pt is providing limited information to his family. Pt called his mother today 03/19 and was threatening to kill himself, mom and aunt when he is discharged from the hospital. Pt has an extensive psychiatric hx and aggression whend decompenstated.
[2023-03-19 16:48] VITALS: RESP 18
[2023-03-19] MEDS: hydrOXYzine HCL 50 MG TABLET PO (20:05)
[2023-03-19] MEDS: Nicotine Polacrilex 2 MG GUM BUCCAL (20:05)
[2023-03-19] MEDS: LORazepam 1 MG TABLET PO (20:05)
[2023-03-19] MEDS: OLANZapine 10 MG TABLET PO (21:46)
--- NOTE | 2023-03-19 22:04 | PC.NURSE ---
Pt becoming increasingly agitated. Putting plastic in his ears to quiet the voices . Notified provider, administered medications as per MAR. This RN was able to sit down and speak with PT. Pt states that for the last two years he has been hearing voices and has been trying different medications unsuccessfully. He states he has not being living right and doing things he is ashamed of- starting doing crack with his mom recently. Pt uses marijuana to stop that voices- he states it works because it causes him to not care about anything. He had two doses of invega and was due for third shot in 2 weeks. PT states he had an appointment with a new provider, Dr. Nickerson but it was scheduled at a [facility] so pt did not attend- Pt also does not feel that therapy would be helpful as it would burden a provider and he has tried it unsuccessfully. Pt also states that he told his sister that he would fly to [place] to be able to get physician-assisted suicide. This Rn provided pt a sandwich and gingerale. Pt resting quietly in bed at this time.
[2023-03-20 06:25] VITALS: BP 155/109; PULSE 99; RESP 17; TEMP 36.6; O2SAT 97
[2023-03-20] MEDS: Nicotine Polacrilex 2 MG GUM BUCCAL ×3 (07:16→20:24)
--- NOTE | 2023-03-20 11:29 | PC.NURSE ---
Assumed care of patient at 1100, patient is ambulating independently around BH pod in no apparent distress at this time. Pt engages in conversation with other patients with no issue, watching TV. offers no complaints at this time. RR even and unlabored. Continue plan of care for IPLOC
[2023-03-20 14:00] VITALS: RESP 16
--- NOTE | 2023-03-20 19:10 | PC.NURSE ---
pt has had uneventful day so far, has been incredibly calm and cooperative, offering no complaints to this RN. Pt verbalizes understanding of plan of care for inpatient admission.
[2023-03-20] MEDS: hydrOXYzine HCL 50 MG TABLET PO (20:24)
[2023-03-20 20:34] VITALS: BP 150/104; PULSE 83; RESP 20; TEMP 36.8; O2SAT 98
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
[2023-03-21] MEDS: Nicotine Polacrilex 2 MG GUM BUCCAL ×2 (11:18→20:18)
[2023-03-21] MEDS: LORazepam 1 MG TABLET PO ×2 (11:18→20:11)
--- NOTE | 2023-03-21 12:38 | PC.NURSE ---
Assumed care of patient at 1100, patient is ambulating independently around BH pod without issue. Talking on portable phone with family members. Pt did verbalize that he was becoming upset and requested an Ativan prior to escalating. Pt is calm and cooperative at this time, respirations even and unlabored, no apparent distress. Continue plan of care for IPLOC
--- NOTE | 2023-03-21 13:36 | PC.NURSE ---
Pt approached ASPEN Cherry regarding his MSU of the day. Dilip informed the patient that since he spoke with psych this morning that he will not getting and MSU today. pt verbalizes his frustrations. this RN approached patient, prior to even sitting down pt states I am not staying past 72 hours, I know when my 72 hours are up and I am not staying past that . This RN verbalized understanding of his frustration. Pt then stated I will become violent, I will throw chairs and pluck eyeballs out to get out of here . Once again, patient validated patients feelings. Pt verbalized that he is upset since he has been here for multiple days without any movement and now all of his friends are gone and he has no one to talk to. He verbalizes that he does not want to go upstairs to sit with the crazies . This RN tiger texted Payton Mayer, surveyor instrument assistant, no response received yet
[2023-03-21] MEDS: OLANZapine ODT 10 MG TAB.RAPDIS 20 MG TRANSLINGU (13:57)
--- NOTE | 2023-03-21 15:35 | PC.NURSE ---
Late entry: pt was medicated with 20mg Zyprexa sublingually due to the increasing agitation, security on standby. Patient willingly took PO medication without issue and has been sleeping since administration
[2023-03-21 18:13] VITALS: RESP 14
--- NOTE | 2023-03-21 19:22 | PC.NURSE ---
patient resting upon t/w's receipt of shift appears in no distress presently, seated on mattress platform presently, did take self to restroom and appeared to void.
[2023-03-21] MEDS: hydrOXYzine HCL 50 MG TABLET PO (20:11)
[2023-03-21 20:14] VITALS: BP 139/105; PULSE 78; RESP 20; TEMP 36.3; O2SAT 95
[2023-03-22] MEDS: Nicotine Polacrilex 2 MG GUM BUCCAL (05:18)
[2023-03-22 05:19] VITALS: BP 135/91; PULSE 84; RESP 17; TEMP 36.6; O2SAT 97
[2023-03-22 05:39] LABS: COVID-19 Test Negative (Negative); IDNOW Serial# 152EDE1D
--- NOTE | 2023-03-22 07:37 | PC.NURSE ---
PT IS IN COMMON AREA WATCHING TV. RESP EVEN AND UNLABORED.
[2023-03-22] MEDS: Paliperidone ER 3 MG TAB.ER.24 PO (08:18)
[2023-03-22] MEDS: LORazepam 1 MG TABLET PO ×2 (08:18→20:08)
[2023-03-22] MEDS: hydrOXYzine HCL 50 MG TABLET PO ×2 (08:18→20:08)
--- NOTE | 2023-03-22 08:24 | PC.NURSE ---
MED X 1 WITH HYDROXZINE 50MG FOR AGITATION. WILL CONTINUE TO MONITOR.
[2023-03-22 09:21] VITALS: RESP 18
[2023-03-22 09:29] VITALS: BP 149/105; PULSE 95; TEMP 36.1; O2SAT 98
--- NOTE | 2023-03-22 12:50 | PC.NURSE ---
Assumed care of patient at 1100, patient is pacing around the pod to cope with his feelings . Pt is calm and cooperative, offering no complaints to this RN at this time, respirations even and unlabored, no apparent distress. Pt did sign CV to go inpt
[2023-03-22 15:21] VITALS: BP 157/92; PULSE 88; RESP 18; TEMP 36.2; O2SAT 96
--- NOTE | 2023-03-22 15:33 | PC.NURSE ---
Pt arrived to unit approximately 1505. Pt added to census board and safety check board. Patient safety search completed with fiction and nonfiction writer prose and John LIM. VS obtained and documented. Pt oriented to unit and given toiletries. Update given to primary nurse.
[2023-03-22 15:46] VITALS: BMI 26.9
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
[2023-03-22 17:23] VITALS: BP 168/111; PULSE 80; RESP 18; TEMP 36.3; O2SAT 96
[2023-03-22 19:45] VITALS: BP 142/98; PULSE 86
[2023-03-22] MEDS: Nicotine Polacrilex 2 MG GUM 4 MG BUCCAL (20:50)
[2023-03-23 07:52] LABS: Estimated Average Glucose 91 mg/dL; Hemoglobin A1c % 4.8 % (<6.0)
[2023-03-23 08:04] LABS: Cholesterol 241 mg/dL (<200); HDL Cholesterol 40 mg/dL (>40); LDL Cholesterol Calculated 175 mg/dL (<100); Triglycerides 130 mg/dL (<150)
[2023-03-23 08:10] VITALS: BP 182/119; PULSE 89; RESP 18; TEMP 36.7; O2SAT 97
[2023-03-23] MEDS: Paliperidone ER 6 MG TAB.ER.24 PO (08:22)
[2023-03-23 09:22] VITALS: BP 177/114; PULSE 85; O2SAT 97
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
[2023-03-23] MEDS: amLODIPine Besylate 5 MG TABLET PO (13:26)
[2023-03-23] MEDS: Nicotine Polacrilex Lozenge 4 MG LOZENGE BUCCAL ×3 (13:29→22:35)
[2023-03-23] MEDS: Paliperidone Palmitate 234 MG/1.5 ML SYRINGE IM (15:03)
[2023-03-23 16:06] VITALS: BP 131/85; PULSE 83; RESP 18; TEMP 36.7; O2SAT 99
[2023-03-23] MEDS: hydrOXYzine HCL 50 MG TABLET PO (22:10)
[2023-03-24 08:15] VITALS: BP 150/94; PULSE 88; RESP 18; TEMP 36.7; O2SAT 100
[2023-03-24] MEDS: amLODIPine Besylate 5 MG TABLET PO (08:56)
[2023-03-24] MEDS: Paliperidone ER 6 MG TAB.ER.24 PO (08:56)
--- NOTE | 2023-03-24 09:34 | HO.PSYCHPN ---
Subjective Subjective Date of Service: 03/24/23 Reason For Visit: Psychosis Interim History: met with patient; discussed with team Patient reports he has doing a little better. Voices have been reduced to a barely audible whisper and mostly only at night. Patient expressed much gratitude for getting on medication that is helping him feel stable. Patient said he is excited to re-engage with his life and regrets having resisted medication for so long. Patient feels good about going to a program and feels it will be very helpful for has prolonged stability and sobriety. Patient shared about groups on the unit and how helpful they are as well as it has been a relief to be able to talk to people, peers about his struggles and no longer feel so alone about them. Mental Status Exam Mental Status Exam Narrative: Pt is alert and oriented; behavior is cooperative, friendly and calm, verbose; patient is not in distress; dressed in casual attire with unkempt hair and bailey but adequate hygiene; mood is described as little better and affect congruent, more calm; eye contact appropriate; Speech is normal rate, volume and prosody; not pressured; not verbose; no psychomotor agitation/retardation present; thought process is goal directed linear; Thought content is on tx, getting to stable aftercare; otherwise pertinent to relevant topics; denies paranoid delusional thinking; denies any SI/HI. Very minimal and tolerable AH; no evidence of perceptual disturbance. Patients insight and judgment appear fair. Diagnostics Vital Signs (24Hr): Vital Signs - 24 hr 03/23/23 16:06 03/24/23 08:15 Temperature 98.1 F 8.1 F L Pulse Rate 83 88 Respiratory Rate 18 18 Blood Pressure 131/85 150/94 H Pulse Oximetry 99 100 Oxygen Delivery Method Room Air Room Air BMI result Body Mass Index 26.9 Labs 03/18/23 15:02 03/18/23 15:02 Labs: Laboratory Results - last 48 hr 03/23/23 07:26 Estimat Average Glucose 91 Hemoglobin A1c % 4.8 Triglycerides 130 Cholesterol 241 H LDL Cholesterol, Calc 175 H HDL Cholesterol 40 L Imaging Radiology Impressions: ITS Impressions Hand X-Ray 03/20/23 07:46 IMPRESSION: No evidence of acute fracture or dislocation in the right hand. Medications Medications Current Medications Acetaminophen (Acetaminophen 325 Mg Tablet) 650 mg PO Q6H PRN PRN Reason: Headache/Pain Mild Scale (1-3) Al Hydroxide/Mg Hydroxide (Magnesium Hydrox/Alum Hydrox 30 Ml Oral.Susp) 30 ml PO Q6H PRN PRN Reason: Heartburn/Nausea Amlodipine Besylate (Amlodipine Besylate 5 Mg Tablet) 5 mg PO DAILY [facility]; Protocol Last Admin: 03/24/23 08:56 Dose: 5 mg Clonidine HCl (Clonidine Hcl 0.1 Mg Tablet) 0.1 mg PO Q4H PRN; Protocol PRN Reason: mild anxiety/high blood pressure Hydroxyzine HCl (Hydroxyzine Hcl 50 Mg Tablet) 50 mg PO BEDTIME [facility] Last Admin: 03/23/23 22:10 Dose: 50 mg Hydroxyzine HCl (Hydroxyzine Hcl 50 Mg Tablet) 50 mg PO DAILY PRN PRN Reason: agitation Last Admin: 03/22/23 08:18 Dose: 50 mg Hydroxyzine HCl (Hydroxyzine Hcl 25 Mg Tablet) 25 mg PO Q6H PRN PRN Reason: Anxiety Magnesium Hydroxide (Milk Of Magnesia 30 Ml Oral.Susp) 30 ml PO DAILY PRN PRN Reason: Constipation Nicotine (Nicotine 21 Mg Patch.Td24) 21 mg TRANSDERMA DAILY PRN PRN Reason: smoking cessation Nicotine Polacrilex (Nicotine Polacrilex Lozenge 4 Mg Lozenge) 4 mg BUCCAL Q2H PRN PRN Reason: Nicotine Cravings Last Admin: 03/23/23 22:35 Dose: 4 mg Olanzapine (Olanzapine 5 Mg Tablet) 5 mg PO TID PRN PRN Reason: agitation Paliperidone (Paliperidone Er 6 Mg Tab.Er.24) 6 mg PO DAILY [facility] Last Admin: 03/24/23 08:56 Dose: 6 mg Paliperidone Palmitate (Paliperidone Palmitate 234 Mg/1.5 Ml Syringe) 234 mg IM Q30D [facility] Last Admin: 03/23/23 15:03 Dose: 234 mg Trazodone HCl (Trazodone Hcl 50 Mg Tablet) 50 mg PO BEDTIME MRX1 PRN PRN Reason: Insomnia Allergies Allergies Allergy/AdvReac Type Severity Reaction Status Date / Time No Known Allergies Allergy Verified 03/22/23 12:08 Assessment & Plan Assessment & Plan (1) Schizoaffective disorder, chronic condition with acute exacerbation: Status: Acute Code(s): F25.9 - Schizoaffective disorder, unspecified Assessment and Plan: AH independent of mood. Patient has History of depression; not clear if history of manic episodes given ongoing cocaine abuse and history of anabolic steroid abuse. (2) Cocaine use disorder: Status: Acute Code(s): F14.10 - Cocaine abuse, uncomplicated (3) Cannabis abuse: Status: Acute Code(s): F12.10 - Cannabis abuse, uncomplicated (4) PTSD (post-traumatic stress disorder): Status: Acute Code(s): F43.10 - Post-traumatic stress disorder, unspecified Plan Patient is a 32-year-old male with history of depression anxiety, AVH and paranoia, cocaine abuse, remote history of anabolic steroid abuse, aggression, who presents for highly expressed anger, AH and paranoid thinking after his mother called for assessment, in the face of being off medication and ongoing crack cocaine abuse. In the ED patient was aggressive, smashed the phone, hit falk and required IM medication. He was then started on p.o. Invega and has been stabilizing. He got the Invega Sustenna 156 mg IM on 02/26/2023; it was supposed to be Q 3 weeks but he missed getting the next dose and says he feels that it wears off too soon; he also reports that ongoing cocaine cannabis abuse gets in the way of treatment and makes symptoms worse. Patient reports that auditory hallucinations tell to blow up the building, break into a car; he calls these voices terrorists because they say to do harmful things however patient adamantly states he would never do any of these things; he is pretty sure that these voices are hallucinations though sometimes wonders if because of his past drug use there some technology going on... He denies any actual HI or SI. Patient said when he is on the Invega, he does not have auditory hallucinations unless he falls back into substance abuse, either cocaine or cannabis. Since coming to the emergency room and getting back on Invega p.o., he says he has been feeling much better and no AH. Patient agrees to increase Invega Sustenna dose. DX: will dx with Schizoaffective DO; AH independent of mood; hx of depression; not clear if hx of manic episodes given ongoing cocaine abuse and history of anabolic steroid abuse. Discussed hypertension; patient has been on amlodipine in the past and agrees to get back on it. Also was on clonidine but will use this as a p.r.n. for now. Discussed dangers of cocaine abuse and HTN. Discussed HLD. Discussed medication regimen, Invega Sustenna and since patient remains vulnerable to AH and feels dose wears off too quickly, agrees to increase to 234 mg Patient shared that his mother uses crack cocaine indiscriminately and that he can not stay sober around her; however has no were else to live. Patient was recently at a [facility] and would like to go back. Ambivalent about programs. [facility] application reportedly submitted Hospital course: 03/24 received INvega 234mg yesterday -AH significantly reduced to whisper, mostly only at night; retracting 3 day notice and wants to go to [facility] for help with prolonged stability and sobriety -engaged in treatment; attending groups; good behavioral and impulse control appropriate with peers and staff. bp improved, though still elevated talked to parag who agrees with plan - Plan: CV Q 15 minute checks Received Invega Sustenna 234 mg IM on 03/23/23 Continue with Invega p.o. 6mg daily; may switch to prn for breakthrough voices amlodipine 5 mg daily Clonidine p.r.n. Discuss outpatient options; respite, [facility] Patient educated on: diagnosis, medication risk/benefits, substance abuse and therapeutic strategies Informed Consent: understands Reason for continued inpatient stay Substantial Risk for: med/psych decompensation Time Spent With Patient Time: Total time managing care of this patient today ____ minutes.
[2023-03-24] MEDS: Nicotine Polacrilex Lozenge 4 MG LOZENGE BUCCAL ×2 (11:43→17:03)
[2023-03-24] MEDS: Nicotine 21 MG PATCH.TD24 TRANSDERMA (11:44)
[2023-03-24 16:36] VITALS: BP 143/91; PULSE 103; RESP 18; TEMP 36.4; O2SAT 98
[2023-03-24] MEDS: traZODone HCL 50 MG TABLET PO (20:17)
[2023-03-25 07:00] VITALS: BMI 27.0
[2023-03-25 08:06] VITALS: BP 154/94; PULSE 87; RESP 16; TEMP 36.4; O2SAT 97
[2023-03-25] MEDS: amLODIPine Besylate 5 MG TABLET PO (08:44)
--- NOTE | 2023-03-25 17:37 | HO.PSYCHPN ---
Subjective Subjective Date of Service: 03/25/23 Reason For Visit: Psychosis Interim History: Met with patient; discussed with team Patient reports that he is doing pretty good today. Says his mood is better; AH remain a barely audible whisper and only briefly at night when he is lying down. Patient felt like he could cope without using PRNs. Discussed medication more detail, options about Invega Sustenna doses and frequency and patient feels good about plan for now, remaining on 4 mg q.4 weeks with p.o. for breakthrough voices. Again shared how grateful he was to be feeling stable, in control, able to think clearly. Talked about how when he was a child he was forced take medications and how it is different now that he has a choice. Says he has no longer afraid of medications. Patient shared about conversation with his boss and that he is welcome back to work this spring now that he is stabilized. Mental Status Exam Mental Status Exam Narrative: Pt is alert and oriented; behavior is cooperative, friendly and calm, verbose; patient is not in distress; dressed in casual attire with unkempt hair and bailey but adequate hygiene; mood is described as pretty good and affect congruent, brighter, more calm; eye contact appropriate; Speech is normal rate, volume and prosody; not pressured; not verbose; no psychomotor agitation/retardation present; thought process is goal directed linear; Thought content is on tx, getting to stable aftercare; otherwise pertinent to relevant topics; denies paranoid delusional thinking; denies any SI/HI. Very minimal and tolerable AH; no evidence of perceptual disturbance. Patients insight and judgment appear fair. Diagnostics Vital Signs (24Hr): Vital Signs - 24 hr 03/25/23 08:06 Temperature 97.5 F Pulse Rate 87 Respiratory Rate 16 Blood Pressure 154/94 H Pulse Oximetry 97 Oxygen Delivery Method Room Air BMI result Body Mass Index 26.9 Labs 03/18/23 15:02 03/18/23 15:02 Imaging Radiology Impressions: ITS Impressions Hand X-Ray 03/20/23 07:46 IMPRESSION: No evidence of acute fracture or dislocation in the right hand. Medications Medications Current Medications Acetaminophen (Acetaminophen 325 Mg Tablet) 650 mg PO Q6H PRN PRN Reason: Headache/Pain Mild Scale (1-3) Al Hydroxide/Mg Hydroxide (Magnesium Hydrox/Alum Hydrox 30 Ml Oral.Susp) 30 ml PO Q6H PRN PRN Reason: Heartburn/Nausea Amlodipine Besylate (Amlodipine Besylate 10 Mg Tablet) 10 mg PO DAILY [facility]; Protocol Clonidine HCl (Clonidine Hcl 0.1 Mg Tablet) 0.1 mg PO Q4H PRN; Protocol PRN Reason: mild anxiety/high blood pressure Hydroxyzine HCl (Hydroxyzine Hcl 50 Mg Tablet) 50 mg PO DAILY PRN PRN Reason: agitation Last Admin: 03/22/23 08:18 Dose: 50 mg Hydroxyzine HCl (Hydroxyzine Hcl 50 Mg Tablet) 50 mg PO BEDTIME PRN PRN Reason: insomnia Magnesium Hydroxide (Milk Of Magnesia 30 Ml Oral.Susp) 30 ml PO DAILY PRN PRN Reason: Constipation Nicotine (Nicotine 21 Mg Patch.Td24) 21 mg TRANSDERMA DAILY PRN PRN Reason: smoking cessation Last Admin: 03/24/23 11:44 Dose: 21 mg Nicotine Polacrilex (Nicotine Polacrilex Lozenge 4 Mg Lozenge) 4 mg BUCCAL Q2H PRN PRN Reason: Nicotine Cravings Last Admin: 03/24/23 17:03 Dose: 4 mg Paliperidone (Paliperidone Er 3 Mg Tab.Er.24) 3 mg PO BID PRN PRN Reason: Auditory Hallucinations Paliperidone Palmitate (Paliperidone Palmitate 234 Mg/1.5 Ml Syringe) 234 mg IM Q30D [facility] Last Admin: 03/23/23 15:03 Dose: 234 mg Trazodone HCl (Trazodone Hcl 50 Mg Tablet) 50 mg PO BEDTIME MRX1 PRN PRN Reason: Insomnia Last Admin: 03/24/23 20:17 Dose: 50 mg Allergies Allergies Allergy/AdvReac Type Severity Reaction Status Date / Time No Known Allergies Allergy Verified 03/22/23 12:08 Assessment & Plan Assessment & Plan (1) Schizoaffective disorder, chronic condition with acute exacerbation: Status: Acute Code(s): F25.9 - Schizoaffective disorder, unspecified Assessment and Plan: AH independent of mood. Patient has History of depression; not clear if history of manic episodes given ongoing cocaine abuse and history of anabolic steroid abuse. (2) Cocaine use disorder: Status: Acute Code(s): F14.10 - Cocaine abuse, uncomplicated (3) Cannabis abuse: Status: Acute Code(s): F12.10 - Cannabis abuse, uncomplicated (4) PTSD (post-traumatic stress disorder): Status: Acute Code(s): F43.10 - Post-traumatic stress disorder, unspecified Plan Patient is a 32-year-old male with history of depression anxiety, AVH and paranoia, cocaine abuse, remote history of anabolic steroid abuse, aggression, who presents for highly expressed anger, AH and paranoid thinking after his mother called for assessment, in the face of being off medication and ongoing crack cocaine abuse. In the ED patient was aggressive, smashed the phone, hit falk and required IM medication. He was then started on p.o. Invega and has been stabilizing. He got the Invega Sustenna 156 mg IM on 02/26/2023; it was supposed to be Q 3 weeks but he missed getting the next dose and says he feels that it wears off too soon; he also reports that ongoing cocaine cannabis abuse gets in the way of treatment and makes symptoms worse. Patient reports that auditory hallucinations tell to blow up the building, break into a car; he calls these voices terrorists because they say to do harmful things however patient adamantly states he would never do any of these things; he is pretty sure that these voices are hallucinations though sometimes wonders if because of his past drug use there some technology going on... He denies any actual HI or SI. Patient said when he is on the Invega, he does not have auditory hallucinations unless he falls back into substance abuse, either cocaine or cannabis. Since coming to the emergency room and getting back on Invega p.o., he says he has been feeling much better and no AH. Patient agrees to increase Invega Sustenna dose. DX: will dx with Schizoaffective DO; AH independent of mood; hx of depression; not clear if hx of manic episodes given ongoing cocaine abuse and history of anabolic steroid abuse. Discussed hypertension; patient has been on amlodipine in the past and agrees to get back on it. Also was on clonidine but will use this as a p.r.n. for now. Discussed dangers of cocaine abuse and HTN. Discussed HLD. Discussed medication regimen, Invega Sustenna and since patient remains vulnerable to AH and feels dose wears off too quickly, agrees to increase to 234 mg Patient shared that his mother uses crack cocaine indiscriminately and that he can not stay sober around her; however has no were else to live. Patient was recently at a [facility] and would like to go back. Ambivalent about programs. [facility] application reportedly submitted Hospital course: 03/24 received INvega 234mg yesterday -AH significantly reduced to whisper, mostly only at night; retracting 3 day notice and wants to go to [facility] for help with prolonged stability and sobriety -engaged in treatment; attending groups; good behavioral and impulse control appropriate with peers and staff. bp improved, though still elevated talked to parag who agrees with plan 03/25 patient remains doing well, engaged in treatment, good behavioral and impulse control and attending groups. Feels medications are working; making Invega p.o. just a p.r.n. for breakthrough voices however patient says he wants to learn to cope as well. Discussed substance abuse, MAT and says cravings have never been a very strong thing for him; does not struggle with opiates or alcohol Plan: CV Q 15 minute checks Received Invega Sustenna 234 mg IM on 03/23/23 Continue Invega p.o. but will break-up into 3mg BID and make a p.r.n. for breakthrough voices INcREASE to amlodipine 10 mg daily for continued hypertension; will titrate; has been on in the past Clonidine p.r.n. Discuss outpatient options; respite, [facility] Received Invega Sustenna 234 mg IM on 03/23/23 Continue with Invega p.o. 6mg daily; may switch to prn for breakthrough voices amlodipine 5 mg daily Clonidine p.r.n. Discuss outpatient options; resp[facility], [facility] Patient educated on: diagnosis and medication risk/benefits Informed Consent: understands Reason for continued inpatient stay Substantial Risk for: stable for discharge Time Spent With Patient Time: Total time managing care of this patient today ____ minutes.
[2023-03-25 17:38] VITALS: BP 145/75; PULSE 78; RESP 18; TEMP 36.6; O2SAT 98
[2023-03-25] MEDS: traZODone HCL 50 MG TABLET PO (22:25)
[2023-03-25] MEDS: cloNIDine HCL 0.1 MG TABLET PO (22:25)
[2023-03-25] MEDS: Nicotine Polacrilex Lozenge 4 MG LOZENGE BUCCAL (22:27)
[2023-03-26 08:20] VITALS: BP 158/86; PULSE 100; RESP 16; TEMP 36.2; O2SAT 98
[2023-03-26] MEDS: amLODIPine Besylate 10 MG TABLET PO (08:30)
[2023-03-26] MEDS: Nicotine Polacrilex Lozenge 4 MG LOZENGE BUCCAL ×3 (08:33→18:56)
--- NOTE | 2023-03-26 09:47 | P.PNPSI_ITS ---
Subjective Subjective Date of Service: 03/26/23 Reason For Visit: Psychosis Interim History: met with patient; discussed with team doing well; pt shared how he's reflecting on his life, choices, future; grateful to be sober. -talked more about his past Mental Status Exam Mental Status Exam Narrative: Pt is alert and oriented; behavior is cooperative, friendly and calm; patient is not in distress; dressed in casual attire, adequately groomed; mood is described as good and affect congruent, brighter, more calm; eye contact appropriate; Speech is normal rate, volume and prosody; not pressured; not verbose; no psychomotor agitation/retardation present; thought process is goal directed linear; Thought content is on tx, getting to stable aftercare; otherwise pertinent to relevant topics; denies paranoid delusional thinking; denies any SI/HI. AH Very minimal and tolerable; no evidence of perceptual disturbance. Patients insight and judgment appear fair. Diagnostics Vital Signs (24Hr): Vital Signs - 24 hr 03/25/23 17:38 03/26/23 08:20 Temperature 97.9 F 97.2 F Pulse Rate 78 100 Respiratory Rate 18 16 Blood Pressure 145/75 H 158/86 H Pulse Oximetry 98 98 Oxygen Delivery Method Room Air Room Air BMI result Body Mass Index 27.0 Labs 03/18/23 15:02 03/18/23 15:02 Imaging Radiology Impressions: ITS Impressions Hand X-Ray 03/20/23 07:46 IMPRESSION: No evidence of acute fracture or dislocation in the right hand. Medications Medications Current Medications Acetaminophen (Acetaminophen 325 Mg Tablet) 650 mg PO Q6H PRN PRN Reason: Headache/Pain Mild Scale (1-3) Al Hydroxide/Mg Hydroxide (Magnesium Hydrox/Alum Hydrox 30 Ml Oral.Susp) 30 ml PO Q6H PRN PRN Reason: Heartburn/Nausea Amlodipine Besylate (Amlodipine Besylate 10 Mg Tablet) 10 mg PO DAILY CEE; Protocol Last Admin: 03/26/23 08:30 Dose: 10 mg Clonidine HCl (Clonidine Hcl 0.1 Mg Tablet) 0.1 mg PO Q4H PRN; Protocol PRN Reason: mild anxiety/high blood pressure Last Admin: 03/25/23 22:25 Dose: 0.1 mg Hydroxyzine HCl (Hydroxyzine Hcl 50 Mg Tablet) 50 mg PO DAILY PRN PRN Reason: agitation Last Admin: 03/22/23 08:18 Dose: 50 mg Hydroxyzine HCl (Hydroxyzine Hcl 50 Mg Tablet) 50 mg PO BEDTIME PRN PRN Reason: insomnia Magnesium Hydroxide (Milk Of Magnesia 30 Ml Oral.Susp) 30 ml PO DAILY PRN PRN Reason: Constipation Nicotine (Nicotine 21 Mg Patch.Td24) 21 mg TRANSDERMA DAILY PRN PRN Reason: smoking cessation Last Admin: 03/24/23 11:44 Dose: 21 mg Nicotine Polacrilex (Nicotine Polacrilex Lozenge 4 Mg Lozenge) 4 mg BUCCAL Q2H PRN PRN Reason: Nicotine Cravings Last Admin: 03/26/23 08:33 Dose: 4 mg Paliperidone (Paliperidone Er 3 Mg Tab.Er.24) 3 mg PO BID PRN PRN Reason: Auditory Hallucinations Paliperidone Palmitate (Paliperidone Palmitate 234 Mg/1.5 Ml Syringe) 234 mg IM Q30D CEE Last Admin: 03/23/23 15:03 Dose: 234 mg Trazodone HCl (Trazodone Hcl 50 Mg Tablet) 50 mg PO BEDTIME MRX1 PRN PRN Reason: Insomnia Last Admin: 03/25/23 22:25 Dose: 50 mg Allergies Allergies Allergy/AdvReac Type Severity Reaction Status Date / Time No Known Allergies Allergy Verified 03/22/23 12:08 Assessment & Plan Assessment & Plan (1) Schizoaffective disorder, chronic condition with acute exacerbation: Status: Acute Code(s): F25.9 - Schizoaffective disorder, unspecified Assessment and Plan: AH independent of mood. Patient has History of depression; not clear if history of manic episodes given ongoing cocaine abuse and history of anabolic steroid abuse. (2) Cocaine use disorder: Status: Acute Code(s): F14.10 - Cocaine abuse, uncomplicated (3) Cannabis abuse: Status: Acute Code(s): F12.10 - Cannabis abuse, uncomplicated (4) PTSD (post-traumatic stress disorder): Status: Acute Code(s): F43.10 - Post-traumatic stress disorder, unspecified Plan Patient is a 32-year-old male with history of depression anxiety, AVH and paranoia, cocaine abuse, remote history of anabolic steroid abuse, aggression, who presents for highly expressed anger, AH and paranoid thinking after his mother called for assessment, in the face of being off medication and ongoing crack cocaine abuse. In the ED patient was aggressive, smashed the phone, hit falk and required IM medication. He was then started on p.o. Invega and has been stabilizing. He got the Invega Sustenna 156 mg IM on 02/26/2023; it was supposed to be Q 3 weeks but he missed getting the next dose and says he feels that it wears off too soon; he also reports that ongoing cocaine cannabis abuse gets in the way of treatment and makes symptoms worse. Patient reports that auditory hallucinations tell to blow up the building, break into a car; he calls these voices terrorists because they say to do harmful things however patient adamantly states he would never do any of these things; he is pretty sure that these voices are hallucinations though sometimes wonders if because of his past drug use there some technology going on... He denies any actual HI or SI. Patient said when he is on the Invega, he does not have auditory hallucinations unless he falls back into substance abuse, either cocaine or cannabis. Since coming to the emergency room and getting back on Invega p.o., he says he has been feeling much better and no AH. Patient agrees to increase Invega Sustenna dose. DX: will dx with Schizoaffective DO; AH independent of mood; hx of depression; not clear if hx of manic episodes given ongoing cocaine abuse and history of anabolic steroid abuse. Discussed hypertension; patient has been on amlodipine in the past and agrees to get back on it. Also was on clonidine but will use this as a p.r.n. for now. Discussed dangers of cocaine abuse and HTN. Discussed HLD. Discussed medication regimen, Invega Sustenna and since patient remains vulnerable to AH and feels dose wears off too quickly, agrees to increase to 234 mg Patient shared that his mother uses crack cocaine indiscriminately and that he can not stay sober around her; however has no were else to live. Patient was recently at a [facility] and would like to go back. Ambivalent about programs. [facility] application reportedly submitted Hospital course: 03/24 received INvega 234mg yesterday -AH significantly reduced to whisper, mostly only at night; retracting 3 day notice and wants to go to [facility] for help with prolonged stability and sobriety -engaged in treatment; attending groups; good behavioral and impulse control appropriate with peers and staff. bp improved, though still elevated talked to parag who agrees with plan 03/25 patient remains doing well, engaged in treatment, good behavioral and impulse control and attending groups. Feels medications are working; making Invega p.o. just a p.r.n. for breakthrough voices however patient says he wants to learn to cope as well. Discussed substance abuse, MAT and says cravings have never been a very strong thing for him; does not struggle with opiates or alcohol 03/26 doing well; making good use of time on unit; engaged in treatment; eating sleeping well Plan: CV Q 15 minute checks Received Invega Sustenna 234 mg IM on 03/23/23 Continue Invega p.o. but will break-up into 3mg BID and make a p.r.n. for breakthrough voices INcREASE to amlodipine 10 mg daily for continued hypertension; will titrate; has been on in the past Clonidine p.r.n. Discuss outpatient options; respite, CS Received Invega Sustenna 234 mg IM on 03/23/23 Continue with Invega p.o. 6mg daily; may switch to prn for breakthrough voices amlodipine 5 mg daily Clonidine p.r.n. Discuss outpatient options; respite, CSS Patient educated on: diagnosis, medication risk/benefits and therapeutic strategies Informed Consent: understands Reason for continued inpatient stay Substantial Risk for: other (dispo) Time Spent With Patient Time: Total time managing care of this patient today ____ minutes.
[2023-03-26 17:29] VITALS: BP 159/90; PULSE 82; TEMP 36.8; O2SAT 98
[2023-03-26] MEDS: traZODone HCL 50 MG TABLET PO (21:40)
[2023-03-26] MEDS: hydrOXYzine HCL 50 MG TABLET PO (21:41)
[2023-03-27 08:00] VITALS: BP 155/75; PULSE 95; RESP 15; TEMP 36.3; O2SAT 94
--- NOTE | 2023-03-27 08:24 | HO.PSYCHPN ---
Subjective Subjective Date of Service: 03/27/23 Reason For Visit: Psychosis Subjective Notes: Conditional Voluntary Interim History: Patient was seen and discussed in rounds today. Records and plans were reviewed. He has been visible, attending groups. He is doing better. He is waiting for placement at the [facility]. Decreased in anxiety. No complaints or side effects. No changes were made today Review of Systems Review of Systems Yes all other systems are reviewed and are negative (denies) Mental Status Exam Mental Status Exam Narrative: In today's visit he is alert, oriented and pleasant. Normal speech. Moderate eye contact. Affect is appropriate and contained. No signs of psychosis. No SI. Cognitively intact. Judgment is intact. Diagnostics Vital Signs (24Hr): Vital Signs - 24 hr 03/26/23 17:29 Temperature 98.2 F Pulse Rate 82 Blood Pressure 159/90 H Pulse Oximetry 98 Oxygen Delivery Method Room Air BMI result Body Mass Index 27.0 Labs 03/18/23 15:02 03/18/23 15:02 Imaging Radiology Impressions: ITS Impressions Hand X-Ray 03/20/23 07:46 IMPRESSION: No evidence of acute fracture or dislocation in the right hand. Medications Medications Current Medications Acetaminophen (Acetaminophen 325 Mg Tablet) 650 mg PO Q6H PRN PRN Reason: Headache/Pain Mild Scale (1-3) Al Hydroxide/Mg Hydroxide (Magnesium Hydrox/Alum Hydrox 30 Ml Oral.Susp) 30 ml PO Q6H PRN PRN Reason: Heartburn/Nausea Amlodipine Besylate (Amlodipine Besylate 10 Mg Tablet) 10 mg PO DAILY CEE; Protocol Last Admin: 03/26/23 08:30 Dose: 10 mg Clonidine HCl (Clonidine Hcl 0.1 Mg Tablet) 0.1 mg PO Q4H PRN; Protocol PRN Reason: mild anxiety/high blood pressure Last Admin: 03/25/23 22:25 Dose: 0.1 mg Hydroxyzine HCl (Hydroxyzine Hcl 50 Mg Tablet) 50 mg PO DAILY PRN PRN Reason: agitation Last Admin: 03/22/23 08:18 Dose: 50 mg Hydroxyzine HCl (Hydroxyzine Hcl 50 Mg Tablet) 50 mg PO BEDTIME PRN PRN Reason: insomnia Last Admin: 03/26/23 21:41 Dose: 50 mg Magnesium Hydroxide (Milk Of Magnesia 30 Ml Oral.Susp) 30 ml PO DAILY PRN PRN Reason: Constipation Multivitamins/Vitamin C (Multivitamin Tablet) 1 tab PO DAILY [facility] Nicotine (Nicotine 21 Mg Patch.Td24) 21 mg TRANSDERMA DAILY PRN PRN Reason: smoking cessation Last Admin: 03/24/23 11:44 Dose: 21 mg Nicotine Polacrilex (Nicotine Polacrilex Lozenge 4 Mg Lozenge) 4 mg BUCCAL Q2H PRN PRN Reason: Nicotine Cravings Last Admin: 03/26/23 18:56 Dose: 4 mg Paliperidone (Paliperidone Er 3 Mg Tab.Er.24) 3 mg PO BID PRN PRN Reason: Auditory Hallucinations Paliperidone Palmitate (Paliperidone Palmitate 234 Mg/1.5 Ml Syringe) 234 mg IM Q30D CEE Last Admin: 03/23/23 15:03 Dose: 234 mg Trazodone HCl (Trazodone Hcl 50 Mg Tablet) 50 mg PO BEDTIME MRX1 PRN PRN Reason: Insomnia Last Admin: 03/26/23 21:40 Dose: 50 mg Allergies Allergies Allergy/AdvReac Type Severity Reaction Status Date / Time No Known Allergies Allergy Verified 03/22/23 12:08 Assessment & Plan Assessment & Plan (1) Schizoaffective disorder, chronic condition with acute exacerbation: Status: Acute Code(s): F25.9 - Schizoaffective disorder, unspecified Assessment and Plan: AH independent of mood. Patient has History of depression; not clear if history of manic episodes given ongoing cocaine abuse and history of anabolic steroid abuse. (2) Cocaine use disorder: Status: Acute Code(s): F14.10 - Cocaine abuse, uncomplicated (3) Cannabis abuse: Status: Acute Code(s): F12.10 - Cannabis abuse, uncomplicated (4) PTSD (post-traumatic stress disorder): Status: Acute Code(s): F43.10 - Post-traumatic stress disorder, unspecified Plan Patient is a 32-year-old male with history of depression anxiety, AVH and paranoia, cocaine abuse, remote history of anabolic steroid abuse, aggression, who presents for highly expressed anger, AH and paranoid thinking after his mother called for assessment, in the face of being off medication and ongoing crack cocaine abuse. In the ED patient was aggressive, smashed the phone, hit falk and required IM medication. He was then started on p.o. Invega and has been stabilizing. He got the Invega Sustenna 156 mg IM on 02/26/2023; it was supposed to be Q 3 weeks but he missed getting the next dose and says he feels that it wears off too soon; he also reports that ongoing cocaine cannabis abuse gets in the way of treatment and makes symptoms worse. Patient reports that auditory hallucinations tell to blow up the building, break into a car; he calls these voices terrorists because they say to do harmful things however patient adamantly states he would never do any of these things; he is pretty sure that these voices are hallucinations though sometimes wonders if because of his past drug use there some technology going on... He denies any actual HI or SI. Patient said when he is on the Invega, he does not have auditory hallucinations unless he falls back into substance abuse, either cocaine or cannabis. Since coming to the emergency room and getting back on Invega p.o., he says he has been feeling much better and no AH. Patient agrees to increase Invega Sustenna dose. DX: will dx with Schizoaffective DO; AH independent of mood; hx of depression; not clear if hx of manic episodes given ongoing cocaine abuse and history of anabolic steroid abuse. Discussed hypertension; patient has been on amlodipine in the past and agrees to get back on it. Also was on clonidine but will use this as a p.r.n. for now. Discussed dangers of cocaine abuse and HTN. Discussed HLD. Discussed medication regimen, Invega Sustenna and since patient remains vulnerable to AH and feels dose wears off too quickly, agrees to increase to 234 mg Patient shared that his mother uses crack cocaine indiscriminately and that he can not stay sober around her; however has no were else to live. Patient was recently at a [facility] and would like to go back. Ambivalent about programs. [facility] application reportedly submitted Hospital course: 03/24 received INvega 234mg yesterday -AH significantly reduced to whisper, mostly only at night; retracting 3 day notice and wants to go to [facility] for help with prolonged stability and sobriety -engaged in treatment; attending groups; good behavioral and impulse control appropriate with peers and staff. bp improved, though still elevated talked to parag who agrees with plan 03/25 patient remains doing well, engaged in treatment, good behavioral and impulse control and attending groups. Feels medications are working; making Invega p.o. just a p.r.n. for breakthrough voices however patient says he wants to learn to cope as well. Discussed substance abuse, MAT and says cravings have never been a very strong thing for him; does not struggle with opiates or alcohol 03/27: Continue current regimen and plans Plan: CV Q 15 minute checks Received Invega Sustenna 234 mg IM on 03/23/23 Continue Invega p.o. but will break-up into 3mg BID and make a p.r.n. for breakthrough voices INcREASE to amlodipine 10 mg daily for continued hypertension; will titrate; has been on in the past Clonidine p.r.n. Discuss outpatient options; respite, CS Received Invega Sustenna 234 mg IM on 03/23/23 Continue with Invega p.o. 6mg daily; may switch to prn for breakthrough voices amlodipine 5 mg daily Clonidine p.r.n. Discuss outpatient options; respite, CSS Reason for continued inpatient stay Substantial Risk for: med/psych decompensation Time Spent With Patient Time: Total time managing care of this patient today ____ minutes.
[2023-03-27] MEDS: amLODIPine Besylate 10 MG TABLET PO (08:31)
[2023-03-27] MEDS: Multivitamin TABLET 1 TAB PO (08:31)
[2023-03-27] MEDS: Nicotine Polacrilex Lozenge 4 MG LOZENGE BUCCAL ×5 (08:35→23:15)
[2023-03-27 11:26] VITALS: BP 155/90; PULSE 85; RESP 15; TEMP 36.7; O2SAT 98
[2023-03-27] MEDS: traZODone HCL 50 MG TABLET PO (23:15)
--- NOTE | 2023-03-28 08:23 | P.PNPSI_ITS ---
Subjective Subjective Date of Service: 03/28/23 Reason For Visit: Psychosis Subjective Notes: Conditional Voluntary Interim History: Patient was seen and discussed in rounds today. Records and plans were reviewed. He continue this to be fairly stable with variable affect. He is medication and meals compliant. Sleeping adequately. No complaints or side effects. No changes were made. No behavioral issues reported. Review of Systems Review of Systems Yes all other systems are reviewed and are negative Mental Status Exam Mental Status Exam Narrative: In today's visit he is alert, oriented and pleasant. Normal speech. Moderate eye contact. Affect is appropriate and contained. No signs of psychosis. No SI. Cognitively intact. Judgment is intact. Diagnostics Vital Signs (24Hr): Vital Signs - 24 hr 03/27/23 11:26 Temperature 98.1 F Pulse Rate 85 Respiratory Rate 15 Blood Pressure 155/90 H Pulse Oximetry 98 Oxygen Delivery Method Room Air BMI result Body Mass Index 27.0 Labs 03/18/23 15:02 03/18/23 15:02 Imaging Radiology Impressions: ITS Impressions Hand X-Ray 03/20/23 07:46 IMPRESSION: No evidence of acute fracture or dislocation in the right hand. Medications Medications Current Medications Acetaminophen (Acetaminophen 325 Mg Tablet) 650 mg PO Q6H PRN PRN Reason: Headache/Pain Mild Scale (1-3) Al Hydroxide/Mg Hydroxide (Magnesium Hydrox/Alum Hydrox 30 Ml Oral.Susp) 30 ml PO Q6H PRN PRN Reason: Heartburn/Nausea Amlodipine Besylate (Amlodipine Besylate 10 Mg Tablet) 10 mg PO DAILY CEE; Protocol Last Admin: 03/27/23 08:31 Dose: 10 mg Clonidine HCl (Clonidine Hcl 0.1 Mg Tablet) 0.1 mg PO Q4H PRN; Protocol PRN Reason: mild anxiety/high blood pressure Last Admin: 03/25/23 22:25 Dose: 0.1 mg Hydroxyzine HCl (Hydroxyzine Hcl 50 Mg Tablet) 50 mg PO DAILY PRN PRN Reason: agitation Last Admin: 03/22/23 08:18 Dose: 50 mg Hydroxyzine HCl (Hydroxyzine Hcl 50 Mg Tablet) 50 mg PO BEDTIME PRN PRN Reason: insomnia Last Admin: 03/26/23 21:41 Dose: 50 mg Magnesium Hydroxide (Milk Of Magnesia 30 Ml Oral.Susp) 30 ml PO DAILY PRN PRN Reason: Constipation Multivitamins/Vitamin C (Multivitamin Tablet) 1 tab PO DAILY [facility] Last Admin: 03/27/23 08:31 Dose: 1 tab Nicotine (Nicotine 21 Mg Patch.Td24) 21 mg TRANSDERMA DAILY PRN PRN Reason: smoking cessation Last Admin: 03/24/23 11:44 Dose: 21 mg Nicotine Polacrilex (Nicotine Polacrilex Lozenge 4 Mg Lozenge) 4 mg BUCCAL Q2H PRN PRN Reason: Nicotine Cravings Last Admin: 03/27/23 23:15 Dose: 4 mg Paliperidone (Paliperidone Er 3 Mg Tab.Er.24) 3 mg PO BID PRN PRN Reason: Auditory Hallucinations Paliperidone Palmitate (Paliperidone Palmitate 234 Mg/1.5 Ml Syringe) 234 mg IM Q30D [facility] Last Admin: 03/23/23 15:03 Dose: 234 mg Trazodone HCl (Trazodone Hcl 50 Mg Tablet) 50 mg PO BEDTIME MRX1 PRN PRN Reason: Insomnia Last Admin: 03/27/23 23:15 Dose: 50 mg Allergies Allergies Allergy/AdvReac Type Severity Reaction Status Date / Time No Known Allergies Allergy Verified 03/22/23 12:08 Assessment & Plan Assessment & Plan (1) Schizoaffective disorder, chronic condition with acute exacerbation: Status: Acute Code(s): F25.9 - Schizoaffective disorder, unspecified Assessment and Plan: AH independent of mood. Patient has History of depression; not clear if history of manic episodes given ongoing cocaine abuse and history of anabolic steroid abuse. (2) Cocaine use disorder: Status: Acute Code(s): F14.10 - Cocaine abuse, uncomplicated (3) Cannabis abuse: Status: Acute Code(s): F12.10 - Cannabis abuse, uncomplicated (4) PTSD (post-traumatic stress disorder): Status: Acute Code(s): F43.10 - Post-traumatic stress disorder, unspecified Plan Patient is a 32-year-old male with history of depression anxiety, AVH and paranoia, cocaine abuse, remote history of anabolic steroid abuse, aggression, who presents for highly expressed anger, AH and paranoid thinking after his mother called for assessment, in the face of being off medication and ongoing crack cocaine abuse. In the ED patient was aggressive, smashed the phone, hit falk and required IM medication. He was then started on p.o. Invega and has been stabilizing. He got the Invega Sustenna 156 mg IM on 02/26/2023; it was supposed to be Q 3 weeks but he missed getting the next dose and says he feels that it wears off too soon; he also reports that ongoing cocaine cannabis abuse gets in the way of treatment and makes symptoms worse. Patient reports that auditory hallucinations tell to blow up the building, break into a car; he calls these voices terrorists because they say to do harmful things however patient adamantly states he would never do any of these things; he is pretty sure that these voices are hallucinations though sometimes wonders if because of his past drug use there some technology going on... He denies any actual HI or SI. Patient said when he is on the Invega, he does not have auditory hallucinations unless he falls back into substance abuse, either cocaine or cannabis. Since coming to the emergency room and getting back on Invega p.o., he says he has been feeling much better and no AH. Patient agrees to increase Invega Sustenna dose. DX: will dx with Schizoaffective DO; AH independent of mood; hx of depression; not clear if hx of manic episodes given ongoing cocaine abuse and history of anabolic steroid abuse. Discussed hypertension; patient has been on amlodipine in the past and agrees to get back on it. Also was on clonidine but will use this as a p.r.n. for now. Discussed dangers of cocaine abuse and HTN. Discussed HLD. Discussed medication regimen, Invega Sustenna and since patient remains vulnerable to AH and feels dose wears off too quickly, agrees to increase to 234 mg Patient shared that his mother uses crack cocaine indiscriminately and that he can not stay sober around her; however has no were else to live. Patient was recently at a [facility] and would like to go back. Ambivalent about programs. [facility] application reportedly submitted Hospital course: 03/24 received INvega 234mg yesterday -AH significantly reduced to whisper, mostly only at night; retracting 3 day notice and wants to go to [facility] for help with prolonged stability and sobriety -engaged in treatment; attending groups; good behavioral and impulse control appropriate with peers and staff. bp improved, though still elevated talked to parag who agrees with plan 03/25 patient remains doing well, engaged in treatment, good behavioral and impulse control and attending groups. Feels medications are working; making Invega p.o. just a p.r.n. for breakthrough voices however patient says he wants to learn to cope as well. Discussed substance abuse, MAT and says cravings have never been a very strong thing for him; does not struggle with opiates or alcohol 03/27: Continue current regimen and plans 03/28: Continue current regimen and plans Plan: CV Q 15 minute checks Received Invega Sustenna 234 mg IM on 03/23/23 Continue Invega p.o. but will break-up into 3mg BID and make a p.r.n. for breakthrough voices INcREASE to amlodipine 10 mg daily for continued hypertension; will titrate; has been on in the past Clonidine p.r.n. Discuss outpatient options; respite, CS Received Invega Sustenna 234 mg IM on 03/23/23 Continue with Invega p.o. 6mg daily; may switch to prn for breakthrough voices amlodipine 5 mg daily Clonidine p.r.n. Discuss outpatient options; respite, CSS Reason for continued inpatient stay Substantial Risk for: med/psych decompensation Time Spent With Patient Time: Total time managing care of this patient today ____ minutes.
[2023-03-28 08:53] VITALS: BP 153/101; PULSE 85; RESP 15; TEMP 36.4; O2SAT 97
[2023-03-28] MEDS: Multivitamin TABLET 1 TAB PO (08:54)
[2023-03-28] MEDS: amLODIPine Besylate 10 MG TABLET PO (08:54)
[2023-03-28 10:01] VITALS: BP 134/84
[2023-03-28 12:00] VITALS: BP 141/90; PULSE 86; RESP 15; O2SAT 94
--- NOTE | 2023-03-28 14:22 | PC.NURSE ---
This nurse texted Dr Lizbet Posadas about BP trending high despite HTN medications.
[2023-03-28] MEDS: cloNIDine HCL 0.1 MG TABLET PO (15:07)
[2023-03-28] MEDS: Nicotine Polacrilex Lozenge 4 MG LOZENGE BUCCAL ×2 (16:10→20:51)
[2023-03-28 16:19] VITALS: BP 149/93
[2023-03-28] MEDS: traZODone HCL 50 MG TABLET PO (20:51)
[2023-03-29] MEDS: Nicotine Polacrilex Lozenge 4 MG LOZENGE BUCCAL ×4 (06:48→21:44)
[2023-03-29 08:35] VITALS: BP 178/101; PULSE 81; RESP 18; TEMP 36.2; O2SAT 99
[2023-03-29] MEDS: Multivitamin TABLET 1 TAB PO (08:46)
[2023-03-29] MEDS: amLODIPine Besylate 10 MG TABLET PO (08:46)
[2023-03-29 10:00] VITALS: BP 140/79; PULSE 99
--- NOTE | 2023-03-29 12:38 | P.PNPSI_ITS ---
Subjective Subjective Date of Service: 03/29/23 Reason For Visit: Psychosis Subjective Notes: Conditional Voluntary Interim History: Patient was seen and discussed in rounds today. Records and plans were reviewed. He has been stable and is doing better. No complaints or side effects. His blood pressure continues to be labile. He is taking the amlodipine. This morning his blood pressure was 170/101 but shortly after came down to 140/79. No changes were made today. Review of Systems Review of Systems Yes all other systems are reviewed and are negative Mental Status Exam Mental Status Exam Narrative: In today's visit he is alert, oriented and pleasant. Normal speech. Moderate eye contact. Affect is appropriate and contained. No signs of psychosis. No SI. Cognitively intact. Judgment is intact. Diagnostics Vital Signs (24Hr): Vital Signs - 24 hr 03/28/23 16:19 03/29/23 08:35 03/29/23 10:00 Temperature 97.1 F Pulse Rate 81 99 Respiratory Rate 18 Blood Pressure 149/93 H 178/101 H 140/79 H Pulse Oximetry 99 Oxygen Delivery Method Room Air BMI result Body Mass Index 27.0 Labs 03/18/23 15:02 03/18/23 15:02 Imaging Radiology Impressions: ITS Impressions Hand X-Ray 03/20/23 07:46 IMPRESSION: No evidence of acute fracture or dislocation in the right hand. Medications Medications Current Medications Acetaminophen (Acetaminophen 325 Mg Tablet) 650 mg PO Q6H PRN PRN Reason: Headache/Pain Mild Scale (1-3) Al Hydroxide/Mg Hydroxide (Magnesium Hydrox/Alum Hydrox 30 Ml Oral.Susp) 30 ml PO Q6H PRN PRN Reason: Heartburn/Nausea Amlodipine Besylate (Amlodipine Besylate 10 Mg Tablet) 10 mg PO DAILY CEE; Protocol Last Admin: 03/29/23 08:46 Dose: 10 mg Clonidine HCl (Clonidine Hcl 0.1 Mg Tablet) 0.1 mg PO Q4H PRN; Protocol PRN Reason: mild anxiety/high blood pressure Last Admin: 03/28/23 15:07 Dose: 0.1 mg Hydroxyzine HCl (Hydroxyzine Hcl 50 Mg Tablet) 50 mg PO DAILY PRN PRN Reason: agitation Last Admin: 03/22/23 08:18 Dose: 50 mg Hydroxyzine HCl (Hydroxyzine Hcl 50 Mg Tablet) 50 mg PO BEDTIME PRN PRN Reason: insomnia Last Admin: 03/26/23 21:41 Dose: 50 mg Magnesium Hydroxide (Milk Of Magnesia 30 Ml Oral.Susp) 30 ml PO DAILY PRN PRN Reason: Constipation Multivitamins/Vitamin C (Multivitamin Tablet) 1 tab PO DAILY [facility] Last Admin: 03/29/23 08:46 Dose: 1 tab Nicotine (Nicotine 21 Mg Patch.Td24) 21 mg TRANSDERMA DAILY PRN PRN Reason: smoking cessation Last Admin: 03/24/23 11:44 Dose: 21 mg Nicotine Polacrilex (Nicotine Polacrilex Lozenge 4 Mg Lozenge) 4 mg BUCCAL Q2H PRN PRN Reason: Nicotine Cravings Last Admin: 03/29/23 06:48 Dose: 4 mg Paliperidone (Paliperidone Er 3 Mg Tab.Er.24) 3 mg PO BID PRN PRN Reason: Auditory Hallucinations Paliperidone Palmitate (Paliperidone Palmitate 234 Mg/1.5 Ml Syringe) 234 mg IM Q30D [facility] Last Admin: 03/23/23 15:03 Dose: 234 mg Trazodone HCl (Trazodone Hcl 50 Mg Tablet) 50 mg PO BEDTIME MRX1 PRN PRN Reason: Insomnia Last Admin: 03/28/23 20:51 Dose: 50 mg Allergies Allergies Allergy/AdvReac Type Severity Reaction Status Date / Time No Known Allergies Allergy Verified 03/22/23 12:08 Assessment & Plan Assessment & Plan (1) Schizoaffective disorder, chronic condition with acute exacerbation: Status: Acute Code(s): F25.9 - Schizoaffective disorder, unspecified Assessment and Plan: AH independent of mood. Patient has History of depression; not clear if history of manic episodes given ongoing cocaine abuse and history of anabolic steroid abuse. (2) Cocaine use disorder: Status: Acute Code(s): F14.10 - Cocaine abuse, uncomplicated (3) Cannabis abuse: Status: Acute Code(s): F12.10 - Cannabis abuse, uncomplicated (4) PTSD (post-traumatic stress disorder): Status: Acute Code(s): F43.10 - Post-traumatic stress disorder, unspecified Plan Patient is a 32-year-old male with history of depression anxiety, AVH and paranoia, cocaine abuse, remote history of anabolic steroid abuse, aggression, who presents for highly expressed anger, AH and paranoid thinking after his mother called for assessment, in the face of being off medication and ongoing crack cocaine abuse. In the ED patient was aggressive, smashed the phone, hit falk and required IM medication. He was then started on p.o. Invega and has been stabilizing. He got the Invega Sustenna 156 mg IM on 02/26/2023; it was supposed to be Q 3 weeks but he missed getting the next dose and says he feels that it wears off too soon; he also reports that ongoing cocaine cannabis abuse gets in the way of treatment and makes symptoms worse. Patient reports that auditory hallucinations tell to blow up the building, break into a car; he calls these voices terrorists because they say to do harmful things however patient adamantly states he would never do any of these things; he is pretty sure that these voices are hallucinations though sometimes wonders if because of his past drug use there some technology going on... He denies any actual HI or SI. Patient said when he is on the Invega, he does not have auditory hallucinations unless he falls back into substance abuse, either cocaine or cannabis. Since coming to the emergency room and getting back on Invega p.o., he says he has been feeling much better and no AH. Patient agrees to increase Invega Sustenna dose. DX: will dx with Schizoaffective DO; AH independent of mood; hx of depression; not clear if hx of manic episodes given ongoing cocaine abuse and history of anabolic steroid abuse. Discussed hypertension; patient has been on amlodipine in the past and agrees to get back on it. Also was on clonidine but will use this as a p.r.n. for now. Discussed dangers of cocaine abuse and HTN. Discussed HLD. Discussed medication regimen, Invega Sustenna and since patient remains vulnerable to AH and feels dose wears off too quickly, agrees to increase to 234 mg Patient shared that his mother uses crack cocaine indiscriminately and that he can not stay sober around her; however has no were else to live. Patient was recently at a [facility] and would like to go back. Ambivalent about programs. [facility] application reportedly submitted Hospital course: 03/24 received INvega 234mg yesterday -AH significantly reduced to whisper, mostly only at night; retracting 3 day notice and wants to go to [facility] for help with prolonged stability and sobriety -engaged in treatment; attending groups; good behavioral and impulse control appropriate with peers and staff. bp improved, though still elevated talked to parag who agrees with plan 03/25 patient remains doing well, engaged in treatment, good behavioral and impulse control and attending groups. Feels medications are working; making Invega p.o. just a p.r.n. for breakthrough voices however patient says he wants to learn to cope as well. Discussed substance abuse, MAT and says cravings have never been a very strong thing for him; does not struggle with opiates or alcohol 03/26 doing well; making good use of time on unit; engaged in treatment; eating sleeping well 03/29: Continue current plans and regimen Plan: CV Q 15 minute checks Received Invega Sustenna 234 mg IM on 03/23/23 Continue Invega p.o. but will break-up into 3mg BID and make a p.r.n. for breakthrough voices INcREASE to amlodipine 10 mg daily for continued hypertension; will titrate; has been on in the past Clonidine p.r.n. Discuss outpatient options; respite, CS Received Invega Sustenna 234 mg IM on 03/23/23 Continue with Invega p.o. 6mg daily; may switch to prn for breakthrough voices amlodipine 5 mg daily Clonidine p.r.n. Discuss outpatient options; respite, CSS Reason for continued inpatient stay Substantial Risk for: med/psych decompensation Time Spent With Patient Time: Total time managing care of this patient today ____ minutes.
[2023-03-29 20:24] VITALS: BP 173/109; PULSE 93; RESP 16; TEMP 36.6; O2SAT 100
[2023-03-29] MEDS: traZODone HCL 50 MG TABLET PO (23:13)
[2023-03-29] MEDS: hydrOXYzine HCL 50 MG TABLET PO (23:13)
[2023-03-30] MEDS: Nicotine Polacrilex Lozenge 4 MG LOZENGE BUCCAL ×3 (06:58→20:34)
[2023-03-30 08:23] VITALS: BP 127/72; PULSE 93; RESP 18; TEMP 36.9; O2SAT 100
[2023-03-30] MEDS: amLODIPine Besylate 10 MG TABLET PO (09:44)
[2023-03-30] MEDS: Multivitamin TABLET 1 TAB PO (09:44)
--- NOTE | 2023-03-30 14:03 | P.PNPSI_ITS ---
Subjective Subjective Date of Service: 03/30/23 Reason For Visit: Psychosis Subjective Notes: Conditional Voluntary Interim History: Pt slept throughout the night. He reports less voices. He reports feeling calmer and doing better. He is future oriented and looking forwards to continue dual dx treatment. No side effects from meds. visible on the unit. Review of Systems Review of Systems Constitutional : No Weight loss, No Fever, No Chills, No Night Sweats, No Fatigue, No Malaise ENT/Mouth : No Hearing loss, No Ear Pain, No Nasal Congestion, No Sinus Pain, No Hoarseness, No sore throat, No Rhinorrhea, No Swallowing Difficulty Eyes: No Eye Pain, No Swelling, No Redness, No Foreign Body, No Discharge, No Vision Changes Cardiovascular : No Chest Pain, No SOB, No Dyspnea on Exertion, No Orthopnea, No Edema, No Palpitations Respiratory : No Cough, No Sputum, No Wheezing, No Smoke Exposure, No Dyspnea Gastrointestinal : No Nausea, No Vomiting, No Diarrhea, No Constipation, No abdominal Pain, No Hematochezia, No Melena Genitourinary : no irregular bleeding, No Dysuria, No Urinary Frequency, No Hematuria, No Urinary Incontinence, No Urgency, No Flank Pain, No Urinary Flow Changes, No Hesitancy Musculoskeletal : No joint pain, No Myalgias, No Joint Swelling Skin : No Skin Lesions, No rash Neuro : No Weakness, No Numbness, No Paresthesias, No Loss of Consciousness, No Dizziness, No Headache Psych : Complaining of hearing voices telling him to blow off a building Heme/Lymph: No Bruising, No Bleeding,No Lymphadenopathy Endocrine : No Polyuria, No Polydipsia, No Temperature Intolerance Yes all other systems are reviewed and are negative Mental Status Exam Mental Status Exam Patient Appearance: Appropriate Patient Orientation: Person, Place, Time and Situation Level of Consciousness: Alert Patient Behavior: Guarded Mood Description: Constricted Affect Description: Constricted Patient Cognition Impaired: No Ability to Follow Directions: Fair Speech Pattern: Spontaneous Speech Memory Description: Intact Diagnostics Vital Signs (24Hr): Vital Signs - 24 hr 03/29/23 20:24 03/30/23 08:23 Temperature 97.9 F 98.4 F Pulse Rate 93 93 Respiratory Rate 16 18 Blood Pressure 173/109 H 127/72 Pulse Oximetry 100 100 Oxygen Delivery Method Room Air Room Air BMI result Body Mass Index 27.0 Labs 03/18/23 15:02 03/18/23 15:02 Imaging Radiology Impressions: ITS Impressions Hand X-Ray 03/20/23 07:46 IMPRESSION: No evidence of acute fracture or dislocation in the right hand. Medications Medications Current Medications Acetaminophen (Acetaminophen 325 Mg Tablet) 650 mg PO Q6H PRN PRN Reason: Headache/Pain Mild Scale (1-3) Al Hydroxide/Mg Hydroxide (Magnesium Hydrox/Alum Hydrox 30 Ml Oral.Susp) 30 ml PO Q6H PRN PRN Reason: Heartburn/Nausea Amlodipine Besylate (Amlodipine Besylate 10 Mg Tablet) 10 mg PO DAILY [facility]; Protocol Last Admin: 03/30/23 09:44 Dose: 10 mg Clonidine HCl (Clonidine Hcl 0.1 Mg Tablet) 0.1 mg PO Q4H PRN; Protocol PRN Reason: mild anxiety/high blood pressure Last Admin: 03/28/23 15:07 Dose: 0.1 mg Hydroxyzine HCl (Hydroxyzine Hcl 50 Mg Tablet) 50 mg PO DAILY PRN PRN Reason: agitation Last Admin: 03/22/23 08:18 Dose: 50 mg Hydroxyzine HCl (Hydroxyzine Hcl 50 Mg Tablet) 50 mg PO BEDTIME PRN PRN Reason: insomnia Last Admin: 03/29/23 23:13 Dose: 50 mg Magnesium Hydroxide (Milk Of Magnesia 30 Ml Oral.Susp) 30 ml PO DAILY PRN PRN Reason: Constipation Multivitamins/Vitamin C (Multivitamin Tablet) 1 tab PO DAILY [facility] Last Admin: 03/30/23 09:44 Dose: 1 tab Nicotine (Nicotine 21 Mg Patch.Td24) 21 mg TRANSDERMA DAILY PRN PRN Reason: smoking cessation Last Admin: 03/24/23 11:44 Dose: 21 mg Nicotine Polacrilex (Nicotine Polacrilex Lozenge 4 Mg Lozenge) 4 mg BUCCAL Q2H PRN PRN Reason: Nicotine Cravings Last Admin: 03/30/23 06:58 Dose: 4 mg Paliperidone (Paliperidone Er 3 Mg Tab.Er.24) 3 mg PO BID PRN PRN Reason: Auditory Hallucinations Paliperidone Palmitate (Paliperidone Palmitate 234 Mg/1.5 Ml Syringe) 234 mg IM Q30D [facility] Last Admin: 03/23/23 15:03 Dose: 234 mg Trazodone HCl (Trazodone Hcl 50 Mg Tablet) 50 mg PO BEDTIME MRX1 PRN PRN Reason: Insomnia Last Admin: 03/29/23 23:13 Dose: 50 mg Allergies Allergies Allergy/AdvReac Type Severity Reaction Status Date / Time No Known Allergies Allergy Verified 03/22/23 12:08 Assessment & Plan Assessment & Plan (1) Schizoaffective disorder, chronic condition with acute exacerbation: Status: Acute Code(s): F25.9 - Schizoaffective disorder, unspecified Assessment and Plan: AH independent of mood. Patient has History of depression; not clear if history of manic episodes given ongoing cocaine abuse and history of anabolic steroid abuse. (2) Cocaine use disorder: Status: Acute Code(s): F14.10 - Cocaine abuse, uncomplicated (3) Cannabis abuse: Status: Acute Code(s): F12.10 - Cannabis abuse, uncomplicated (4) PTSD (post-traumatic stress disorder): Status: Acute Code(s): F43.10 - Post-traumatic stress disorder, unspecified Plan Patient is a 32-year-old male with history of depression anxiety, AVH and paranoia, cocaine abuse, remote history of anabolic steroid abuse, aggression, who presents for highly expressed anger, AH and paranoid thinking after his mother called for assessment, in the face of being off medication and ongoing crack cocaine abuse. In the ED patient was aggressive, smashed the phone, hit falk and required IM medication. He was then started on p.o. Invega and has been stabilizing. He got the Invega Sustenna 156 mg IM on 02/26/2023; it was supposed to be Q 3 weeks but he missed getting the next dose and says he feels that it wears off too soon; he also reports that ongoing cocaine cannabis abuse gets in the way of treatment and makes symptoms worse. Patient reports that auditory hallucinations tell to blow up the building, break into a car; he calls these voices terrorists because they say to do harmful things however patient adamantly states he would never do any of these things; he is pretty sure that these voices are hallucinations though sometimes wonders if because of his past drug use there some technology going on... He denies any actual HI or SI. Patient said when he is on the Invega, he does not have auditory hallucinations unless he falls back into substance abuse, either cocaine or cannabis. Since coming to the emergency room and getting back on Invega p.o., he says he has been feeling much better and no AH. Patient agrees to increase Invega Sustenna dose. DX: will dx with Schizoaffective DO; AH independent of mood; hx of depression; not clear if hx of manic episodes given ongoing cocaine abuse and history of anabolic steroid abuse. Discussed hypertension; patient has been on amlodipine in the past and agrees to get back on it. Also was on clonidine but will use this as a p.r.n. for now. Discussed dangers of cocaine abuse and HTN. Discussed HLD. Discussed medication regimen, Invega Sustenna and since patient remains vulnerable to AH and feels dose wears off too quickly, agrees to increase to 234 mg Patient shared that his mother uses crack cocaine indiscriminately and that he can not stay sober around her; however has no were else to live. Patient was recently at a [facility] and would like to go back. Ambivalent about programs. [facility] application reportedly submitted Hospital course: 03/24 received INvega 234mg yesterday -AH significantly reduced to whisper, mostly only at night; retracting 3 day notice and wants to go to [facility] for help with prolonged stability and sobriety -engaged in treatment; attending groups; good behavioral and impulse control appropriate with peers and staff. bp improved, though still elevated talked to parag who agrees with plan 03/25 patient remains doing well, engaged in treatment, good behavioral and impulse control and attending groups. Feels medications are working; making Invega p.o. just a p.r.n. for breakthrough voices however patient says he wants to learn to cope as well. Discussed substance abuse, MAT and says cravings have never been a very strong thing for him; does not struggle with opiates or alcohol 03/26 doing well; making good use of time on unit; engaged in treatment; eating sleeping well 03/29: Continue current plans and regimen Plan: CV Q 15 minute checks Received Invega Sustenna 234 mg IM on 03/23/23 Continue Invega p.o. but will break-up into 3mg BID and make a p.r.n. for breakthrough voices INcREASE to amlodipine 10 mg daily for continued hypertension; will titrate; has been on in the past Clonidine p.r.n. Discuss outpatient options; respite, CS Received Invega Sustenna 234 mg IM on 03/23/23 Continue with Invega p.o. 6mg daily; may switch to prn for breakthrough voices amlodipine 5 mg daily Clonidine p.r.n. Discuss outpatient options; respite, CSS 03/30 continue tx. Reason for continued inpatient stay Substantial Risk for: stable for discharge Time Spent With Patient Time: Total time managing care of this patient today ____ minutes.
[2023-03-30 18:00] VITALS: BP 155/99; PULSE 88; RESP 18; TEMP 36.1; O2SAT 97
[2023-03-30] MEDS: hydrOXYzine HCL 50 MG TABLET PO (20:39)
[2023-03-30] MEDS: traZODone HCL 50 MG TABLET PO (20:39)
[2023-03-31 08:05] VITALS: BP 148/97; PULSE 87; RESP 16; TEMP 36.3; O2SAT 97
[2023-03-31] MEDS: Multivitamin TABLET 1 TAB PO (09:09)
[2023-03-31] MEDS: amLODIPine Besylate 10 MG TABLET PO (09:09)
[2023-03-31] MEDS: Nicotine Polacrilex Lozenge 4 MG LOZENGE BUCCAL ×4 (13:27→22:18)
[2023-03-31 16:24] VITALS: BP 147/93; PULSE 90; RESP 18; TEMP 36.6; O2SAT 98
--- NOTE | 2023-03-31 17:48 | HO.PSYCHPN ---
Subjective Subjective Date of Service: 03/31/23 Reason For Visit: Psychosis Subjective Notes: Conditional Voluntary Interim History: Pt not accepted at [facility]. Pt slept throughout the night. He reports less voices. He reports feeling calmer and doing better. He is future oriented and looking forwards to continue dual dx treatment. No side effects from meds. visible on the unit. Review of Systems Review of Systems Constitutional : No Weight loss, No Fever, No Chills, No Night Sweats, No Fatigue, No Malaise ENT/Mouth : No Hearing loss, No Ear Pain, No Nasal Congestion, No Sinus Pain, No Hoarseness, No sore throat, No Rhinorrhea, No Swallowing Difficulty Eyes: No Eye Pain, No Swelling, No Redness, No Foreign Body, No Discharge, No Vision Changes Cardiovascular : No Chest Pain, No SOB, No Dyspnea on Exertion, No Orthopnea, No Edema, No Palpitations Respiratory : No Cough, No Sputum, No Wheezing, No Smoke Exposure, No Dyspnea Gastrointestinal : No Nausea, No Vomiting, No Diarrhea, No Constipation, No abdominal Pain, No Hematochezia, No Melena Genitourinary : no irregular bleeding, No Dysuria, No Urinary Frequency, No Hematuria, No Urinary Incontinence, No Urgency, No Flank Pain, No Urinary Flow Changes, No Hesitancy Musculoskeletal : No joint pain, No Myalgias, No Joint Swelling Skin : No Skin Lesions, No rash Neuro : No Weakness, No Numbness, No Paresthesias, No Loss of Consciousness, No Dizziness, No Headache Psych : Complaining of hearing voices telling him to blow off a building Heme/Lymph: No Bruising, No Bleeding,No Lymphadenopathy Endocrine : No Polyuria, No Polydipsia, No Temperature Intolerance Yes all other systems are reviewed and are negative Mental Status Exam Mental Status Exam Patient Appearance: Appropriate Patient Orientation: Person, Place, Time and Situation Level of Consciousness: Alert Patient Behavior: Guarded Mood Description: Constricted Affect Description: Constricted Patient Cognition Impaired: No Ability to Follow Directions: Fair Speech Pattern: Spontaneous Speech Memory Description: Intact Diagnostics Vital Signs (24Hr): Vital Signs - 24 hr 03/30/23 18:00 03/31/23 08:05 03/31/23 16:24 Temperature 97 F 97.4 F 97.9 F Pulse Rate 88 87 90 Respiratory Rate 18 16 18 Blood Pressure 155/99 H 148/97 H 147/93 H Pulse Oximetry 97 97 98 Oxygen Delivery Method Room Air Room Air Room Air BMI result Body Mass Index 27.0 Labs 03/18/23 15:02 03/18/23 15:02 Imaging Radiology Impressions: ITS Impressions Hand X-Ray 03/20/23 07:46 IMPRESSION: No evidence of acute fracture or dislocation in the right hand. Medications Medications Current Medications Acetaminophen (Acetaminophen 325 Mg Tablet) 650 mg PO Q6H PRN PRN Reason: Headache/Pain Mild Scale (1-3) Al Hydroxide/Mg Hydroxide (Magnesium Hydrox/Alum Hydrox 30 Ml Oral.Susp) 30 ml PO Q6H PRN PRN Reason: Heartburn/Nausea Amlodipine Besylate (Amlodipine Besylate 10 Mg Tablet) 10 mg PO DAILY [facility]; Protocol Last Admin: 03/31/23 09:09 Dose: 10 mg Clonidine HCl (Clonidine Hcl 0.1 Mg Tablet) 0.1 mg PO Q4H PRN; Protocol PRN Reason: mild anxiety/high blood pressure Last Admin: 03/28/23 15:07 Dose: 0.1 mg Hydroxyzine HCl (Hydroxyzine Hcl 50 Mg Tablet) 50 mg PO DAILY PRN PRN Reason: agitation Last Admin: 03/22/23 08:18 Dose: 50 mg Hydroxyzine HCl (Hydroxyzine Hcl 50 Mg Tablet) 50 mg PO BEDTIME PRN PRN Reason: insomnia Last Admin: 03/30/23 20:39 Dose: 50 mg Magnesium Hydroxide (Milk Of Magnesia 30 Ml Oral.Susp) 30 ml PO DAILY PRN PRN Reason: Constipation Multivitamins/Vitamin C (Multivitamin Tablet) 1 tab PO DAILY [facility] Last Admin: 03/31/23 09:09 Dose: 1 tab Nicotine (Nicotine 21 Mg Patch.Td24) 21 mg TRANSDERMA DAILY PRN PRN Reason: smoking cessation Last Admin: 03/24/23 11:44 Dose: 21 mg Nicotine Polacrilex (Nicotine Polacrilex Lozenge 4 Mg Lozenge) 4 mg BUCCAL Q2H PRN PRN Reason: Nicotine Cravings Last Admin: 03/31/23 16:38 Dose: 4 mg Paliperidone (Paliperidone Er 3 Mg Tab.Er.24) 3 mg PO BID PRN PRN Reason: Auditory Hallucinations Paliperidone Palmitate (Paliperidone Palmitate 234 Mg/1.5 Ml Syringe) 234 mg IM Q30D [facility] Last Admin: 03/23/23 15:03 Dose: 234 mg Trazodone HCl (Trazodone Hcl 50 Mg Tablet) 50 mg PO BEDTIME MRX1 PRN PRN Reason: Insomnia Last Admin: 03/30/23 20:39 Dose: 50 mg Allergies Allergies Allergy/AdvReac Type Severity Reaction Status Date / Time No Known Allergies Allergy Verified 03/22/23 12:08 Assessment & Plan Assessment & Plan (1) Schizoaffective disorder, chronic condition with acute exacerbation: Status: Acute Code(s): F25.9 - Schizoaffective disorder, unspecified Assessment and Plan: AH independent of mood. Patient has History of depression; not clear if history of manic episodes given ongoing cocaine abuse and history of anabolic steroid abuse. (2) Cocaine use disorder: Status: Acute Code(s): F14.10 - Cocaine abuse, uncomplicated (3) Cannabis abuse: Status: Acute Code(s): F12.10 - Cannabis abuse, uncomplicated (4) PTSD (post-traumatic stress disorder): Status: Acute Code(s): F43.10 - Post-traumatic stress disorder, unspecified Plan Patient is a 32-year-old male with history of depression anxiety, AVH and paranoia, cocaine abuse, remote history of anabolic steroid abuse, aggression, who presents for highly expressed anger, AH and paranoid thinking after his mother called for assessment, in the face of being off medication and ongoing crack cocaine abuse. In the ED patient was aggressive, smashed the phone, hit falk and required IM medication. He was then started on p.o. Invega and has been stabilizing. He got the Invega Sustenna 156 mg IM on 02/26/2023; it was supposed to be Q 3 weeks but he missed getting the next dose and says he feels that it wears off too soon; he also reports that ongoing cocaine cannabis abuse gets in the way of treatment and makes symptoms worse. Patient reports that auditory hallucinations tell to blow up the building, break into a car; he calls these voices terrorists because they say to do harmful things however patient adamantly states he would never do any of these things; he is pretty sure that these voices are hallucinations though sometimes wonders if because of his past drug use there some technology going on... He denies any actual HI or SI. Patient said when he is on the Invega, he does not have auditory hallucinations unless he falls back into substance abuse, either cocaine or cannabis. Since coming to the emergency room and getting back on Invega p.o., he says he has been feeling much better and no AH. Patient agrees to increase Invega Sustenna dose. DX: will dx with Schizoaffective DO; AH independent of mood; hx of depression; not clear if hx of manic episodes given ongoing cocaine abuse and history of anabolic steroid abuse. Discussed hypertension; patient has been on amlodipine in the past and agrees to get back on it. Also was on clonidine but will use this as a p.r.n. for now. Discussed dangers of cocaine abuse and HTN. Discussed HLD. Discussed medication regimen, Invega Sustenna and since patient remains vulnerable to AH and feels dose wears off too quickly, agrees to increase to 234 mg Patient shared that his mother uses crack cocaine indiscriminately and that he can not stay sober around her; however has no were else to live. Patient was recently at a [facility] and would like to go back. Ambivalent about programs. [facility] application reportedly submitted Hospital course: 03/24 received INvega 234mg yesterday -AH significantly reduced to whisper, mostly only at night; retracting 3 day notice and wants to go to [facility] for help with prolonged stability and sobriety -engaged in treatment; attending groups; good behavioral and impulse control appropriate with peers and staff. bp improved, though still elevated talked to parag who agrees with plan 03/25 patient remains doing well, engaged in treatment, good behavioral and impulse control and attending groups. Feels medications are working; making Invega p.o. just a p.r.n. for breakthrough voices however patient says he wants to learn to cope as well. Discussed substance abuse, MAT and says cravings have never been a very strong thing for him; does not struggle with opiates or alcohol 03/26 doing well; making good use of time on unit; engaged in treatment; eating sleeping well 03/29: Continue current plans and regimen Plan: CV Q 15 minute checks Received Invega Sustenna 234 mg IM on 03/23/23 Continue Invega p.o. but will break-up into 3mg BID and make a p.r.n. for breakthrough voices INcREASE to amlodipine 10 mg daily for continued hypertension; will titrate; has been on in the past Clonidine p.r.n. Discuss outpatient options; respite, CS Received Invega Sustenna 234 mg IM on 03/23/23 Continue with Invega p.o. 6mg daily; may switch to prn for breakthrough voices amlodipine 5 mg daily Clonidine p.r.n. Discuss outpatient options; respite, CSS Reason for continued inpatient stay Substantial Risk for: inability to function Time Spent With Patient Time: Total time managing care of this patient today ____ minutes.
[2023-03-31] MEDS: hydrOXYzine HCL 50 MG TABLET PO (22:18)
[2023-03-31] MEDS: traZODone HCL 50 MG TABLET PO (22:18)
[2023-04-01 07:00] VITALS: BMI 27.8
[2023-04-01 08:10] VITALS: BP 158/103; PULSE 93; RESP 18; TEMP 37; O2SAT 98
[2023-04-01] MEDS: amLODIPine Besylate 10 MG TABLET PO (08:43)
[2023-04-01] MEDS: Multivitamin TABLET 1 TAB PO (08:43)
[2023-04-01] MEDS: Nicotine Polacrilex Lozenge 4 MG LOZENGE BUCCAL ×5 (10:24→22:49)
[2023-04-01 12:00] VITALS: BP 147/93; PULSE 93; RESP 18; TEMP 36.7; O2SAT 97
--- NOTE | 2023-04-01 17:19 | HO.PSYCHPN ---
Subjective Subjective Date of Service: 04/01/23 Reason For Visit: Psychosis Subjective Notes: Conditional Voluntary Interim History: Pt reports some anxiety about discharge but feeling ready for d/c tomorrow; has been working on aftercare plans; has reached out to his sister and friends for support; developing a safety plan and relapse prevention plan; he is anxious and depressed but improved; he denies SI or Hi; has more understanding and acceptance of diagnosis and commitment to stay sober; he is future oriented. Pt slept throughout the night. He reports less voices. He reports feeling calmer and doing better. No side effects from meds. visible on the unit. Medication Compliance: Yes Side effects from medications: No Review of Systems Acute medical concerns: No Medical Review of Systems: unchanged Review of Systems Review of Systems Constitutional : No Weight loss, No Fever, No Chills, No Night Sweats, No Fatigue, No Malaise ENT/Mouth : No Hearing loss, No Ear Pain, No Nasal Congestion, No Sinus Pain, No Hoarseness, No sore throat, No Rhinorrhea, No Swallowing Difficulty Eyes: No Eye Pain, No Swelling, No Redness, No Foreign Body, No Discharge, No Vision Changes Cardiovascular : No Chest Pain, No SOB, No Dyspnea on Exertion, No Orthopnea, No Edema, No Palpitations Respiratory : No Cough, No Sputum, No Wheezing, No Smoke Exposure, No Dyspnea Gastrointestinal : No Nausea, No Vomiting, No Diarrhea, No Constipation, No abdominal Pain, No Hematochezia, No Melena Genitourinary : no irregular bleeding, No Dysuria, No Urinary Frequency, No Hematuria, No Urinary Incontinence, No Urgency, No Flank Pain, No Urinary Flow Changes, No Hesitancy Musculoskeletal : No joint pain, No Myalgias, No Joint Swelling Skin : No Skin Lesions, No rash Neuro : No Weakness, No Numbness, No Paresthesias, No Loss of Consciousness, No Dizziness, No Headache Psych : Complaining of hearing voices telling him to blow off a building Heme/Lymph: No Bruising, No Bleeding,No Lymphadenopathy Endocrine : No Polyuria, No Polydipsia, No Temperature Intolerance Yes all other systems are reviewed and are negative Mental Status Exam Mental Status Exam Narrative: In today's visit he is alert, oriented and pleasant. Normal speech. Moderate eye contact. Affect is appropriate and contained. No signs of psychosis. No SI. Cognitively intact. Judgment is intact. Patient Appearance: Appropriate Patient Orientation: Person, Place, Time and Situation Level of Consciousness: Alert Patient Behavior: Guarded Mood Description: Constricted Affect Description: Constricted Patient Cognition Impaired: No Ability to Follow Directions: Fair Speech Pattern: Spontaneous Speech Memory Description: Intact Diagnostics Vital Signs (24Hr): Vital Signs - 24 hr 04/01/23 08:10 04/01/23 12:00 Temperature 98.6 F 98.1 F Pulse Rate 93 93 Respiratory Rate 18 18 Blood Pressure 158/103 H 147/93 H Pulse Oximetry 98 97 Oxygen Delivery Method Room Air Room Air BMI result Body Mass Index 27.8 Labs 03/18/23 15:02 03/18/23 15:02 Imaging Radiology Impressions: ITS Impressions Hand X-Ray 03/20/23 07:46 IMPRESSION: No evidence of acute fracture or dislocation in the right hand. Medications Medications Current Medications Acetaminophen (Acetaminophen 325 Mg Tablet) 650 mg PO Q6H PRN PRN Reason: Headache/Pain Mild Scale (1-3) Al Hydroxide/Mg Hydroxide (Magnesium Hydrox/Alum Hydrox 30 Ml Oral.Susp) 30 ml PO Q6H PRN PRN Reason: Heartburn/Nausea Amlodipine Besylate (Amlodipine Besylate 10 Mg Tablet) 10 mg PO DAILY [facility]; Protocol Last Admin: 04/01/23 08:43 Dose: 10 mg Clonidine HCl (Clonidine Hcl 0.1 Mg Tablet) 0.1 mg PO Q4H PRN; Protocol PRN Reason: mild anxiety/high blood pressure Last Admin: 03/28/23 15:07 Dose: 0.1 mg Hydroxyzine HCl (Hydroxyzine Hcl 50 Mg Tablet) 50 mg PO DAILY PRN PRN Reason: agitation Last Admin: 03/22/23 08:18 Dose: 50 mg Hydroxyzine HCl (Hydroxyzine Hcl 50 Mg Tablet) 50 mg PO BEDTIME PRN PRN Reason: insomnia Last Admin: 03/31/23 22:18 Dose: 50 mg Magnesium Hydroxide (Milk Of Magnesia 30 Ml Oral.Susp) 30 ml PO DAILY PRN PRN Reason: Constipation Multivitamins/Vitamin C (Multivitamin Tablet) 1 tab PO DAILY [facility] Last Admin: 04/01/23 08:43 Dose: 1 tab Nicotine (Nicotine 21 Mg Patch.Td24) 21 mg TRANSDERMA DAILY PRN PRN Reason: smoking cessation Last Admin: 03/24/23 11:44 Dose: 21 mg Nicotine Polacrilex (Nicotine Polacrilex Lozenge 4 Mg Lozenge) 4 mg BUCCAL Q2H PRN PRN Reason: Nicotine Cravings Last Admin: 04/01/23 15:53 Dose: 4 mg Paliperidone (Paliperidone Er 3 Mg Tab.Er.24) 3 mg PO BID PRN PRN Reason: Auditory Hallucinations Paliperidone Palmitate (Paliperidone Palmitate 234 Mg/1.5 Ml Syringe) 234 mg IM Q30D [facility] Last Admin: 03/23/23 15:03 Dose: 234 mg Trazodone HCl (Trazodone Hcl 50 Mg Tablet) 50 mg PO BEDTIME MRX1 PRN PRN Reason: Insomnia Last Admin: 03/31/23 22:18 Dose: 50 mg Allergies Allergies Allergy/AdvReac Type Severity Reaction Status Date / Time No Known Allergies Allergy Verified 03/22/23 12:08 Assessment & Plan Assessment & Plan (1) Schizoaffective disorder, chronic condition with acute exacerbation: Status: Acute Code(s): F25.9 - Schizoaffective disorder, unspecified Assessment and Plan: AH independent of mood. Patient has History of depression; not clear if history of manic episodes given ongoing cocaine abuse and history of anabolic steroid abuse. (2) Cocaine use disorder: Status: Acute Code(s): F14.10 - Cocaine abuse, uncomplicated (3) Cannabis abuse: Status: Acute Code(s): F12.10 - Cannabis abuse, uncomplicated (4) PTSD (post-traumatic stress disorder): Status: Acute Code(s): F43.10 - Post-traumatic stress disorder, unspecified Plan Patient is a 32-year-old male with history of depression anxiety, AVH and paranoia, cocaine abuse, remote history of anabolic steroid abuse, aggression, who presents for highly expressed anger, AH and paranoid thinking after his mother called for assessment, in the face of being off medication and ongoing crack cocaine abuse. In the ED patient was aggressive, smashed the phone, hit falk and required IM medication. He was then started on p.o. Invega and has been stabilizing. He got the Invega Sustenna 156 mg IM on 02/26/2023; it was supposed to be Q 3 weeks but he missed getting the next dose and says he feels that it wears off too soon; he also reports that ongoing cocaine cannabis abuse gets in the way of treatment and makes symptoms worse. Patient reports that auditory hallucinations tell to blow up the building, break into a car; he calls these voices terrorists because they say to do harmful things however patient adamantly states he would never do any of these things; he is pretty sure that these voices are hallucinations though sometimes wonders if because of his past drug use there some technology going on... He denies any actual HI or SI. Patient said when he is on the Invega, he does not have auditory hallucinations unless he falls back into substance abuse, either cocaine or cannabis. Since coming to the emergency room and getting back on Invega p.o., he says he has been feeling much better and no AH. Patient agrees to increase Invega Sustenna dose. DX: will dx with Schizoaffective DO; AH independent of mood; hx of depression; not clear if hx of manic episodes given ongoing cocaine abuse and history of anabolic steroid abuse. Discussed hypertension; patient has been on amlodipine in the past and agrees to get back on it. Also was on clonidine but will use this as a p.r.n. for now. Discussed dangers of cocaine abuse and HTN. Discussed HLD. Discussed medication regimen, Invega Sustenna and since patient remains vulnerable to AH and feels dose wears off too quickly, agrees to increase to 234 mg Patient shared that his mother uses crack cocaine indiscriminately and that he can not stay sober around her; however has no were else to live. Patient was recently at a [facility] and would like to go back. Ambivalent about programs. [facility] application reportedly submitted Hospital course: 03/24 received INvega 234mg yesterday -AH significantly reduced to whisper, mostly only at night; retracting 3 day notice and wants to go to [facility] for help with prolonged stability and sobriety -engaged in treatment; attending groups; good behavioral and impulse control appropriate with peers and staff. bp improved, though still elevated talked to parag who agrees with plan 03/25 patient remains doing well, engaged in treatment, good behavioral and impulse control and attending groups. Feels medications are working; making Invega p.o. just a p.r.n. for breakthrough voices however patient says he wants to learn to cope as well. Discussed substance abuse, MAT and says cravings have never been a very strong thing for him; does not struggle with opiates or alcohol 03/26 doing well; making good use of time on unit; engaged in treatment; eating sleeping well 03/29: Continue current plans and regimen 04/01 continue tx plan including discharge planning and aftercare. Plan: CV Q 15 minute checks Received Invega Sustenna 234 mg IM on 03/23/23 Continue Invega p.o. but will break-up into 3mg BID and make a p.r.n. for breakthrough voices INcREASE to amlodipine 10 mg daily for continued hypertension; will titrate; has been on in the past Clonidine p.r.n. Discuss outpatient options; respite, CS Received Invega Sustenna 234 mg IM on 03/23/23 Continue with Invega p.o. 6mg daily; may switch to prn for breakthrough voices amlodipine 5 mg daily Clonidine p.r.n. Discuss outpatient options; respite, CSS Reason for continued inpatient stay Substantial Risk for: harm to self, inability to function and rapid decompensation Time Spent With Patient Time: Total time managing care of this patient today ____ minutes.
[2023-04-01 17:21] VITALS: BP 134/88; PULSE 94; RESP 18; TEMP 36.9; O2SAT 97
[2023-04-01] MEDS: traZODone HCL 50 MG TABLET PO (20:48)
[2023-04-01] MEDS: hydrOXYzine HCL 50 MG TABLET PO (20:48)
[2023-04-02 08:17] VITALS: BP 157/79; PULSE 89; RESP 16; TEMP 36.6; O2SAT 98
[2023-04-02] MEDS: amLODIPine Besylate 10 MG TABLET PO (08:28)
[2023-04-02] MEDS: Multivitamin TABLET 1 TAB PO (08:28)
[2023-04-02] MEDS: Nicotine Polacrilex Lozenge 4 MG LOZENGE BUCCAL (08:30)
--- NOTE | 2023-04-02 13:18 | PM.PSYDC ---
DS: Providers Provider Date of Service: 04/02/23 Date of admission: 03/22/23 13:07 Date of discharge: 04/02/23 Primary care physician: Unknown Physician Admitting clinician: Apolinar Lennon Attending physician on admission: Apolinar Lennon Attending physician on discharge: Apolinar Lennon Discharging clinician: Mimi Mann DS: Diagnosis Discharge Diagnosis (1) Schizoaffective disorder, chronic condition with acute exacerbation: Start date: 04/02/23 Start time: 10:00 Status: Acute (2) Cocaine use disorder: Start date: 04/02/23 Start time: 10:00 Status: Acute (3) Cannabis abuse: Start date: 04/02/23 Start time: 10:00 Status: Acute (4) PTSD (post-traumatic stress disorder): Start date: 04/02/23 Start time: 10:00 Status: Acute DS: Medications Discharge Medications Home Medications: Previous Rx's Medication Instructions Recorded amlodipine 10 mg tablet 10 mg PO DAILY #14 tabs 04/02/23 clonidine HCl 0.1 mg tablet 0.1 mg PO Q4H PRN mild 04/02/23 anxiety/high blood pressure #14 tabs multivitamin (Daily-Marin tablet) 1 tab PO DAILY #14 tabs 04/02/23 nicotine (polacrilex) 4 mg buccal 4 mg buccal Q2H PRN Nicotine 04/02/23 lozenge Cravings #28 ea nicotine 21 mg/24 hr daily 21 mg transdermal DAILY PRN 04/02/23 transdermal patch smoking cessation #14 ea paliperidone 3 mg tablet,extended 3 mg PO BID PRN Auditory 04/02/23 release 24 hr (Invega) Hallucinations #28 tabs paliperidone palmitate 234 mg/1.5 234 mg (1.5 mL) IM Q30D #1.5 mL 04/02/23 mL intramuscular syringe (Invega Sustenna) trazodone 50 mg tablet 50 mg PO BEDTIME MRX1 PRN Insomnia 04/02/23 #14 tabs Mental Status Exam Mental Status Exam Narrative: In today's visit he is alert, oriented and pleasant. Normal speech. Moderate eye contact. Affect is appropriate and contained. No signs of psychosis. No SI. Cognitively intact. Judgment is intact. Patient Appearance: Appropriate Patient Orientation: Person, Place, Time and Situation Level of Consciousness: Alert Patient Behavior: Guarded Mood Description: Constricted Affect Description: Constricted Patient Cognition Impaired: No Ability to Follow Directions: Fair Speech Pattern: Spontaneous Speech Memory Description: Intact Data Imaging Diagnostic Imaging Impressions Hand X-Ray 03/20/23 07:46 IMPRESSION: No evidence of acute fracture or dislocation in the right hand. DS: Summary Hospital Course Hospital Course: Patient is a 32-year-old male with history of depression anxiety, AVH and paranoia, cocaine abuse, remote history of anabolic steroid abuse, aggression, who presents for highly expressed anger, AH and paranoid thinking after his mother called for assessment, in the face of being off medication and ongoing crack cocaine abuse. In the ED patient was aggressive, smashed the phone, hit falk and required IM medication. He was then started on p.o. Invega and has been stabilizing. He got the Invega Sustenna 156 mg IM on 02/26/2023; it was supposed to be Q 3 weeks but he missed getting the next dose and says he feels that it wears off too soon; he also reports that ongoing cocaine cannabis abuse gets in the way of treatment and makes symptoms worse. Patient reports that auditory hallucinations tell to blow up the building, break into a car; he calls these voices terrorists because they say to do harmful things however patient adamantly states he would never do any of these things; he is pretty sure that these voices are hallucinations though sometimes wonders if because of his past drug use there some technology going on... He denies any actual HI or SI. Patient said when he is on the Invega, he does not have auditory hallucinations unless he falls back into substance abuse, either cocaine or cannabis. Since coming to the emergency room and getting back on Invega p.o., he says he has been feeling much better and no AH. Patient restarted om Invega Sustenna 234 mg IM Q 30 days with a PRN invega 3 mg for hallucinations. He has respondedd well to the higher dose of invega sustenna; he is stable. fewer hallucinations, no aggression, clearer cognitively; participated in after care planning; highly motivated to remain sober and has a relapse prevention plan; has connected with social support and outpatient providers. Time spent discussing smoking cessation with patient: 3 to 10 minutes Status at Discharge Cognitive/behavioral status at discharge: alert and oriented, logical, coherent, stable mood future oriented Functional status at discharge: independent ambulation Overall status at discharge: patient is back to baseline Time Spent with Patient Time attestation: Total time managing care of this patient today ____ minutes. Time spent: Less than 30 minutes Specific discharge activities: discussion with team, met with patient , review of medications, prescriptions sent to pharmacy Discharge Plan Discharge Anticipated Discharge Date/Time: 04/02/23 11:32 Patient Disposition: Home, Self-Care Discharge Diagnosis: Schizoaffective Disorder, PTSD chronic, cannabis abuse, cocaine abuse Referrals: Daria Davies: [facility] Support [facility] [Other] - 04/06/23 10:00 am (Diagnostic evaluation for therapy and psychiatric education management. You must attend initial appointment to receive medication management services. Appointment is in person at [facility] [Other] - 1 Week (Referral to [facility] for [facility] use [facility] ) [facility]: Recovery Coaching [Other] - 1 Week (Referral for Recovery Coaching Patient should follow-up on referral after discharge to connect with monomer recovery supervisor) [facility] [Other] - 1 Week (Recovery Resources ) [facility] [Other] - 1 Week (Recovery Resources ) Physician,Unknown J [Primary Care Provider] - (Pt declined follow up appointment) Discharge Medications: New clonidine HCl 0.1 mg Tablet 0.1 mg PO Q4H PRN (Reason: mild anxiety/high blood pressure) Qty: 14 0RF Protocol: Hold for SBP< HOLD for SBP < : 90 amlodipine 10 mg Tablet 10 mg PO DAILY Qty: 14 0RF Protocol: Hold for SBP< HOLD for SBP < : 90 nicotine 21 mg/24 hr Patch 24 Hour 21 mg transdermal DAILY PRN (Reason: smoking cessation) Qty: 14 0RF nicotine (polacrilex) 4 mg Lozenge 4 mg buccal Q2H PRN (Reason: Nicotine Cravings) Qty: 28 0RF paliperidone [Invega] 3 mg Tablet Extended Release 24 Hr 3 mg PO BID PRN (Reason: Auditory Hallucinations) Qty: 28 0RF Invega Sustenna 234 mg/1.5 mL Syringe 234 mg IM Q30D Qty: 1.5 0RF Rx Instructions: due on 04/20/23 last given [facility] 03/23/23 multivitamin [Daily-Marin] Tablet 1 tab PO DAILY Qty: 14 0RF trazodone 50 mg Tablet 50 mg PO BEDTIME MRX1 PRN (Reason: Insomnia) Qty: 14 0RF Discontinued hydroxyzine pamoate 50 mg capsule 50 mg PO BEDTIME Rx Instructions: 1-2 capsules 50-100mg at [facility]. lorazepam 1 mg tablet 1 mg PO QD-BID PRN (Reason: Anxiety) Invega Sustenna 156 mg/mL syringe 156 mg IM ONCE Rx Instructions: Did not take dose on 02/26/23 Discharge Orders: Discharge Order (Routine); Ordered 04/02/23 Ordered By: Mimi Mann Activity on Discharge: As tolerated Stand Alone Forms: Patient Portal Discharge page, Community Support Care Plan Goals: continue medications invega injection due April 20 2023 use prn invega tablets as needed for hallucinations follow up with outpatient providers Health Concerns: stay hydrated Plan of Treatment: continue medications invega injection due April 20 2023 - last given 03/23/23 use prn invega tablets as needed for hallucinations follow up with outpatient providers Assessment: alert and oriented x 4 ; mood stable; no SI or Hi; future oriented; has improved insight and coping skills; participating in aftercare plan Discharge Date/Time: 04/02/23 11:26
== END 2023-04-02 11:26 | disposition home or self-care (01) | DRG 885 ==
LOC: HO.ED 03-22 13:51 → HO.PM5 03-22 14:40
PROVIDERS: Clinical Nurse Specialist Psychiatric/Mental Health, Adult; Emergency Medicine; Admitting Provider Psychiatry & Neurology Psychiatry; Emergency Provider Emergency Medicine Emergency Medical Services; Visit Provider Psychiatry & Neurology Psychiatry
DX: F25.9 Schizoaffective disorder, unspecified (principal); F43.12 Post-traumatic stress disorder, chronic; F17.210 Nicotine dependence, cigarettes, uncomplicated; Z71.6 Tobacco abuse counseling; Z20.822 Contact with and (suspected) exposure to COVID-19; F12.10 Cannabis abuse, uncomplicated; F14.10 Cocaine abuse, uncomplicated; Z79.899 Other long term (current) drug therapy
CPT/HCPCS: 36415; 73120; 80053; 80061; 80307; 81003; 83036; 85025; 87635; 93005; 99285; J2250; J2359; J2426; S9485

== ENCOUNTER → 2023-03-19 07:42 | Outpatient (BNV) | payer OTHER, SELFPAY | PROVIDERS: Emergency Provider Emergency Medicine; Visit Provider Internal Medicine | DX: R94.31 Abnormal electrocardiogram [ECG] [EKG] (principal) | CPT/HCPCS: 93010 ==

== ENCOUNTER → 2023-03-22 13:07 | Outpatient (BNV) | payer OTHER, SELFPAY | PROVIDERS: Admitting Provider Psychiatry & Neurology Psychiatry; Emergency Provider Emergency Medicine Emergency Medical Services; Visit Provider Clinical Nurse Specialist Psychiatric/Mental Health, Adult | DX: F25.0 Schizoaffective disorder, bipolar type (principal); F14.10 Cocaine abuse, uncomplicated; F12.10 Cannabis abuse, uncomplicated; F43.11 Post-traumatic stress disorder, acute | CPT/HCPCS: 90792; 99223; 99231; 99232; 99238 ==

== ENCOUNTER 2024-09-25 13:14 | Inpatient (IN) | payer OTHER, SELFPAY ==
[2024-09-25] VITALS (11 sets, daily range): BP systolic 109–157; BP diastolic 79–117; PULSE 73–94; RESP 17–26; TEMP 36.3; O2SAT 93–99; BMI 28.8
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
[2024-09-25] MEDS: OLANZapine 10 MG VIAL IM (13:40)
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
[2024-09-25 14:12] LABS: MANUAL DIFF FLAG NO
[2024-09-25 14:13] LABS: Hematocrit 42.1 % (42.0-52.0); Hemoglobin 14.6 g/dl (14.0-18.0); Imm Gran Abs Auto 0.03 X10*3/uL (0.00-0.03); Imm Gran Pct Auto 0.3 % (0.0-0.4); Lymphocytes Absolute Auto 1.8 X10*3/uL (1.2-4.9); Mean Corpuscular HGB Conc 34.7 g/dl (31.0-36.0); Mean Corpuscular Hemoglobin 29.4 pg (27.0-33.0); Mean Corpuscular Volume 84.7 fL (80.0-98.0); NRBC Abs Auto 0.000 X10*3/uL (0.0-0.012); NRBC Pct Auto 0.0 /100WBC (0.0-0.2); Platelet Count 252 X10*3/uL (160-400); Red Blood Count 4.97 X10*6/uL (4.60-5.80); White Blood Count 9.0 X10*3/uL (4.8-10.8)
[2024-09-25 14:46] LABS: Acetaminophen LAB < 3 mcg/mL (<30); Salicylate < 5.0 mg/dL (15-30)
[2024-09-25 14:48] LABS: Albumin Level 4.5 g/dL (3.5-5.0); Alkaline Phosphatase 57 U/L (39-117); Anion Gap 13 (12-20); Aspartate Amino Transferase 28 U/L (5-37); Blood Urea Nitrogen 16 mg/dL (9-16); Calcium 9.1 mg/dL (8.4-10.2); Carbon Dioxide 28 mmol/L (22-29); Chloride 104 mmol/L (96-108); Creatinine Clr Calc Pharmacy 108.0; Estimated Glomerular Filt Rate > 60; Potassium 4.0 mmol/L (3.3-5.1); Sodium 141 mmol/L (135-145); Total Protein 7.1 g/dL (6.5-8.0)
[2024-09-25 14:58] LABS: Alanine Aminotransferase 37 U/L (0-40)
--- NOTE | 2024-09-25 14:58 | PC.NURSE ---
pt continues to rest w/ eyes closed in no apparent distress. pt remains calm/cooperative at this time. vital signs stable/wnl. nsr on the rn discharge. on RA w/o difficulty - no sob/wob noted. respirations even/unlabored. 1:1 sitter remains present. pending care team consult. plan of care ongoing. call porter placed within reach.
--- NOTE | 2024-09-25 20:16 | PC.NURSE ---
Addendum entered by Uyen Toussaint RN 09/25/24 20:16: security called to walk pt over to POD Original Note: verbal report given to JOEY Crawford.
[2024-09-25] MEDS: OLANZapine 10 MG VIAL 15 MG IM ×2 (20:35→21:35)
[2024-09-25] MEDS: diazePAM 10 MG/2 ML CARTRIDGE IM (23:34)
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
--- NOTE | 2024-09-26 09:49 | PHA.MEDREC ---
Addendum entered by Laisha Gibson RPh 09/26/24 11:13: MED REC REVIEWED BY [facility] Original Note: Pharmacy Consult ? Medication Reconciliation Pharmacy has reviewed the medication reconciliation done by nursing. claims match med list.
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
[2024-09-26] MEDS: OLANZapine 10 MG VIAL IM (12:50)
--- NOTE | 2024-09-26 13:01 | PC.NURSE ---
pt woke up agitated, proceeded to urinate in a cup in his room, threw cup of urine on bed, balled up his linens and placed linens in corner of the room. Pt then exited his room, this RN offered to give him new linens and pt states Yeah, no Ill fucking knock you out, youre gonna need them when you go to sleep . Pt then ambulated back to his room, continuing to exhibit anger and frustration toward staff. security called to bedside. this RN attempted to offer patient oral medications, pt states to this RN Yeah no, shove it up your ass . This RN attempted to educate patient that he may feel better with some medications, to which he responded no, after 72 hours I will be out of here and I won't be taking any medications . Decision was made by provider MD Devika for 10mg IM Zyprexa. Pt did willingly take IM injection in left deltoid without issue. chief program officer Don also stopped to talk with patient. after conversation, pt became more amenable to taking PO medications. Pt was provided with afternoon medications. Pt is now resting in room, TV turned on for comfort
[2024-09-26 13:23] VITALS: PULSE 84; RESP 14; O2SAT 99
--- NOTE | 2024-09-26 14:43 | MHC.CARE ---
Pt remains IPLOC at this time after MSU from CARE team.
--- NOTE | 2024-09-26 15:01 | PC.NURSE ---
pt appears to be sleeping at this time, respirations even and unlabored
--- NOTE | 2024-09-26 15:37 | PC.NURSE ---
Pt appears to be sleeping, respirations even and unlabored, no apparent distress is noted
--- NOTE | 2024-09-26 16:07 | PM.PSYCN ---
History of Present Illness Date of Service: 09/26/24 Chief Complaint: SEC 12,MAKING MOLOTOV COCKTAIL TO THROW @APT BLDG Reason for Consult: Medication management Requesting physician: Ankur Case Sources of Information: patient interviewed, chart reviewed and crisis/core team assessment reviewed HPI Narrative: Patient is a 34-year-old male with history of schizoaffective disorder, cocaine abuse, aggression in the community, remote history of anabolic steroid abuse, recently discharged from [facility], off medication, who presents for highly expressed for paranoid delusions auditory hallucinations to harm others. Apparently his mother contacted authorities today because she was worried he was planning to do something violent to their neighbors and police found patient with the makings for Molotov cocktails. Patient paranoid, delusional and aggressive in the ED needing to be physically and chemically restrained. Patient denied any intent to harm himself or others and said that these jars in fire crackers were to celebrate his grandfather's birthday. Patient a 2nd time became agitated and aggressive required a 2nd physical and chemical restraint. Psychiatry consulted to assess for medication management. As marketing underwriter approached patient, he was asleep in his bed from being sedated. Staff reports that earlier he had been making numerous threatening remarks, saying people were terrorists, telling the nurse he would break her neck, swearing... As patient was finally sedated and calm, marketing underwriter did not think it and patient best interest or the safety of the milieu and staff to wake him up. [employer] reviewed chart. Past admission (Mar 2021) Patient reported that auditory hallucinations tell to blow up the building, break into a car; he calls these voices terrorists because they say to do harmful things?At that time patient responded to paliperidone/Invega Sustenna; during an earlier admissions, patient also responded to Zyprexa which was also sedating. [employer] started paliperidone during the day and Zyprexa at night to help with sleep. Past Psychiatric History: Inpatient: 2020 M5, 2021 M3 other admission to [facility]? Was started on Invega p.o. and then Sustenna which he said resolved AVH/paranoid thinking OP: none Suicide attempts: none Past medication trials: Zyprexa at last M3 admission depakote decades ago [facility] Medical History (Updated 09/25/24 @ 22:16 by Ankur Case MD) Cannabis abuse Cocaine use disorder Schizoaffective disorder, chronic condition with acute exacerbation Chronic post-traumatic stress disorder (PTSD) Bipolar 1 disorder Family History: Both parents drug abuse history Social History: Intermittently lives with his mother who was addicted to cocaine Patient and his sister were taken into custody by social media designer when they were young; eventually adopted by their grandfather Patient has history of juvenile longterm Patient has history of incarceration for battery Substance History: cocaine use disorder Trauma History: Severe and extensive childhood trauma; other traumas in adult life Diagnostics Vital Signs (24Hr): Vital Signs - 24 hr 09/25/24 19:10 09/25/24 20:35 09/25/24 20:50 Pulse Rate 85 Respiratory Rate 18 22 H 17 Blood Pressure 137/82 Pulse Oximetry 98 Oxygen Delivery Method Room Air 09/25/24 21:05 09/25/24 21:20 09/25/24 21:35 Pulse Rate Respiratory Rate 21 H 22 H 22 H Blood Pressure Pulse Oximetry Oxygen Delivery Method 09/25/24 22:24 09/26/24 13:23 Pulse Rate 94 84 Respiratory Rate 19 14 Blood Pressure 135/85 Pulse Oximetry 99 99 Oxygen Delivery Method Room Air Room Air BMI result Body Mass Index 28.8 Labs 09/25/24 14:07 09/25/24 14:07 Labs: Laboratory Results - last 48 hr 09/25/24 14:07 WBC 9.0 RBC 4.97 Hgb 14.6 Hct 42.1 MCV 84.7 MCH 29.4 MCHC 34.7 RDW 13.2 Plt Count 252 MPV 9.7 Immature Gran % (Auto) 0.3 Neut % (Auto) 70.6 Lymph % (Auto) 19.4 L [place] % (Auto) 8.8 Eos % (Auto) 0.6 Baso % (Auto) 0.3 Lymph # (Auto) 1.8 [place] # (Auto) 0.8 Eos # (Auto) 0.1 Baso # (Auto) 0.0 Abs Immat Gran (auto) 0.03 Absolute Neuts (auto) 6.4 Absolute Nucleated RBC 0.000 Nucleated RBC % (auto) 0.0 Sodium 141 Potassium 4.0 Chloride 104 Carbon Dioxide 28 Anion Gap 13 BUN 16 Creatinine 1.06 Estim Creat Clear Calc 108.0 Estimated GFR > 60 Random Glucose 93 Calcium 9.1 D Total Bilirubin 0.1 Direct Bilirubin < 0.2 AST 28 ALT 37 Alkaline Phosphatase 57 Total Protein 7.1 Albumin 4.5 Salicylates < 5.0 L Acetaminophen < 3 Ethyl Alcohol < 10 Mental Status Exam Mental Status Exam Narrative: Earlier agitated, aggressive expressing paranoid delusions; later on sedated from medication Medications Medications Current Medications Amlodipine Besylate (Amlodipine Besylate 10 Mg Tablet) 10 mg PO DAILY [facility]; Protocol Last Admin: 09/26/24 13:05 Dose: 10 mg Clonidine HCl (Clonidine Hcl 0.2 Mg Tablet) 0.2 mg PO BID CEE; Protocol Last Admin: 09/26/24 13:05 Dose: 0.2 mg Lorazepam (Lorazepam 1 Mg Tablet) 1 mg PO QID PRN PRN Reason: mild/moderate agitation Olanzapine (Olanzapine Odt 10 Mg Tab.Rapdis) 10 mg TRANSLINGU BEDTIME CEE Olanzapine (Olanzapine 5 Mg Tablet) 5 mg PO QID PRN PRN Reason: agitation Olanzapine (Olanzapine 5 Mg Tablet) 5 mg PO BID [facility] Last Admin: 09/26/24 13:05 Dose: 5 mg Paliperidone (Paliperidone Er 3 Mg Tab.Er.24) 3 mg PO BID@0900,1300 [facility] Last Admin: 09/26/24 13:11 Dose: 3 mg Allergies Allergies Allergy/AdvReac Type Severity Reaction Status Date / Time No Known Allergies Allergy Verified 09/25/24 14:09 Assessment & Plan Assessment & Plan (1) Schizoaffective disorder, chronic condition with acute exacerbation: Status: Acute Code(s): F25.9 - Schizoaffective disorder, unspecified (2) Schizoaffective disorder: Status: Acute Code(s): F25.9 - Schizoaffective disorder, unspecified (3) Cocaine use disorder: Status: Acute Code(s): F14.10 - Cocaine abuse, uncomplicated Plan Patient is a 34-year-old male with history of schizoaffective disorder, cocaine abuse, aggression in the community, remote history of anabolic steroid abuse, recently discharged from [facility], off medication, who presents for highly expressed for paranoid delusions auditory hallucinations to harm others. Apparently his mother contacted authorities today because she was worried he was planning to do something violent to their neighbors and police found patient with the makings for Molotov cocktails. Patient paranoid, delusional and aggressive in the ED needing to be physically and chemically restrained. Patient denied any intent to harm himself or others and said that these jars in fire crackers were to celebrate his grandfather's birthday. Patient a 2nd time became agitated and aggressive required a 2nd physical and chemical restraint. Psychiatry consulted to assess for medication management. As marketing underwriter approached patient, he was asleep in his bed from being sedated. Staff reports that earlier he had been making numerous threatening remarks, saying people were terrorists, telling the nurse he would break her neck, swearing... As patient was finally sedated and calm, marketing underwriter did not think it and patient best interest or the safety of the milieu and staff to wake him up. [employer] reviewed chart. Past admission (Mar 2021) Patient reported that auditory hallucinations tell to blow up the building, break into a car; he calls these voices terrorists because they say to do harmful things?At that time patient responded to paliperidone/Invega Sustenna; during an earlier admissions, patient also responded to Zyprexa which was also sedating. [employer] started paliperidone during the day and Zyprexa at night to help with sleep. Formulation/clinical reason/plan: Patient presents with psychotic symptoms and plans to harm others. Patient has a history of psychotic illness with a history of auditory hallucinations that are command in nature and have commanded patient to hurt others. He also has a history of assault in the community and has been incarcerated. Patient has responded to paliperidone and Zyprexa so will restart these medications now. [employer] discussed case with Dr. Thomson, certified medical coding specialist of the psychiatric department and other team members. Given that patient's violent history is combined with psychotic illness and chronic non-adherence with medication, all agree that patient requires a forensic evaluation and needs long-term forensic treatment. Plan: start paliperidone 3 mg b.i.d.; will titrate; will see if patient is willing to take long-acting Invega Sustenna Start Zyprexa 10 mg q.h.s. to help with aggression, psychosis and sleep; eventually patient can probably be stable on monotherapy Will add PRNs of Zyprexa and Ativan for breakthrough agitation Total time managing care of this patient today ____ minutes.
--- NOTE | 2024-09-26 19:08 | PC.NURSE ---
This bid writer assumed care of this Pt at 1900. Pt awake, refused dinner tray, states after 3 days I'm knocking teeth out if im not gone . Pt ambulated to phone making phone call at this time.
--- NOTE | 2024-09-27 01:10 | PC.NURSE ---
Pt awake, refused night meds, states I am not taking meds when I haven't eaten for 2 days, I am not eating the shit you've been trying to feed me, I will make my own sandwich when I get home . Pt declined sandwich/pudding/crackers, Pt drinking water from sink despite bring offered PO drinks.
[2024-09-27 05:45] VITALS: RESP 17
--- NOTE | 2024-09-27 06:57 | PC.NURSE ---
Pt sitting out in the common area eating breakfast.
--- NOTE | 2024-09-27 08:43 | PC.NURSE ---
patient is seen walking around unit. brother prasad tried calling, patient does not want to speak to him. patient often calling someone on the phone stating no one has called him. patient appears agitated but did take morning medications per MAR. patient given tooth brush and tooth paste as requested.
--- NOTE | 2024-09-27 09:27 | MHC.CARE ---
Pt no longer being followed by CARE team, pt being followed by hospital psychiatry team and leadership team for disposition.
[2024-09-27 10:30] VITALS: RESP 16
--- NOTE | 2024-09-27 13:02 | PC.NURSE ---
patient states he is being starved while in the hospital, refused lunch tray but did take brownie and ate it. patient is requesting to speak to someone regarding d/c, he would like to sign himself out. patient is under the care of inpatient psychiatry. Dr Saji faust texted at 1301. patient is pacing unit, appears agitated at this time.
--- NOTE | 2024-09-27 16:48 | PC.NURSE ---
dr cotto at bedside with patient, patient agreeable to IM injection of Invega. patient then walked over to phone and made phone call stating he was being held against his will and that he is going to starve here.
--- NOTE | 2024-09-27 18:18 | PC.NURSE ---
PT REFUSED HIS DINNER TRAY
--- NOTE | 2024-09-27 18:20 | HO.PSYCHPN ---
Subjective Subjective Date of Service: 09/27/24 Reason For Visit: SEC 12,MAKING MOLOTOV COCKTAIL TO THROW @[facility] Interim History: Met with patient; discussed with team Patient overall more calm today. Intermittently making aggressive comments how, when talking on the phone, and overheard saying that he will rip people's eyes out if he is not just charged. However to staff he is appropriate and polite. Taking medications. Food Products Sales Representative met with patient who acknowledged he is having auditory hallucinations saying they are terrorists... He also said that he knows Federal agents are listening to him all the time so and response he yells loudly at them. Food Products Sales Representative asked about the Molotov cocktails in he said that they were just to celebrate his grandfather's birthday and nothing else. He asks about discharge but writer technical publications explains that patient is going to need to stay for more treatment. Discussed medications and he agreed to get on Invega Sustenna. Mental Status Exam Mental Status Exam Narrative: Pt is alert and oriented; behavior is intermittently agitated but not towards others and is able to be cooperative and keep himself in behavioral control; patient is not in distress; dressed in hospital attire, bailey, unkempt hair; mood is described as irritable and affect intense; eye contact appropriate; Speech is a little pressured, a little loud; intermittent psychomotor agitation present; thought process is goal directed; Thought content is on terrorists, paranoid ideations; he denies any SI/HI. Acknowledges AH of terrorists Patients insight and judgment impaired. Diagnostics Vital Signs (24Hr): Vital Signs - 24 hr 09/27/24 05:45 09/27/24 10:30 Respiratory Rate 17 16 Oxygen Delivery Method Room Air BMI result Body Mass Index 28.8 Labs 09/25/24 14:07 09/25/24 14:07 Medications Medications Current Medications Amlodipine Besylate (Amlodipine Besylate 10 Mg Tablet) 10 mg PO DAILY [facility]; Protocol Last Admin: 09/27/24 08:29 Dose: 10 mg Clonidine HCl (Clonidine Hcl 0.2 Mg Tablet) 0.2 mg PO BID [facility]; Protocol Last Admin: 09/27/24 08:29 Dose: 0.2 mg Lorazepam (Lorazepam 1 Mg Tablet) 1 mg PO QID PRN PRN Reason: mild/moderate agitation Olanzapine (Olanzapine Odt 10 Mg Tab.Rapdis) 10 mg TRANSLINGU BEDTIME [facility] Last Admin: 09/27/24 01:17 Dose: Not Given Olanzapine (Olanzapine 5 Mg Tablet) 5 mg PO QID PRN PRN Reason: agitation Paliperidone (Paliperidone Er 3 Mg Tab.Er.24) 3 mg PO DAILY [facility] Paliperidone (Paliperidone Er 6 Mg Tab.Er.24) 6 mg PO DAILY@1400 [facility] Paliperidone Palmitate (Paliperidone Palmitate 234 Mg/1.5 Ml Syringe) 234 mg IM ONCE ONE Stop: 09/28/24 12:01 Allergies Allergies Allergy/AdvReac Type Severity Reaction Status Date / Time No Known Allergies Allergy Verified 09/25/24 14:09 Assessment & Plan Assessment & Plan (1) Schizoaffective disorder, chronic condition with acute exacerbation: Status: Acute Code(s): F25.9 - Schizoaffective disorder, unspecified (2) Schizoaffective disorder: Status: Acute Code(s): F25.9 - Schizoaffective disorder, unspecified (3) Cocaine use disorder: Status: Acute Code(s): F14.10 - Cocaine abuse, uncomplicated Plan Patient is a 34-year-old male with history of schizoaffective disorder, cocaine abuse, aggression in the community, remote history of anabolic steroid abuse, recently discharged from [facility], off medication, who presents for highly expressed for paranoid delusions auditory hallucinations to harm others. Apparently his mother contacted authorities today because she was worried he was planning to do something violent to their neighbors and police found patient with the makings for [employer] cocktails. Patient paranoid, delusional and aggressive in the ED needing to be physically and chemically restrained. Patient denied any intent to harm himself or others and said that these jars in fire crackers were to celebrate his grandfather's birthday. Patient a 2nd time became agitated and aggressive required a 2nd physical and chemical restraint. Psychiatry consulted to assess for medication management. As writer technical publications approached patient, he was asleep in his bed from being sedated. Staff reports that earlier he had been making numerous threatening remarks, saying people were terrorists, telling the nurse he would break her neck, swearing... As patient was finally sedated and calm, writer technical publications did not think it and patient best interest or the safety of the milieu and staff to wake him up. Food Products Sales Representative reviewed chart. Past admission (Mar 2021) Patient reported that auditory hallucinations tell to blow up the building, break into a car; he calls these voices terrorists because they say to do harmful things?At that time patient responded to paliperidone/Invega Sustenna; during an earlier admissions, patient also responded to Zyprexa which was also sedating. Food Products Sales Representative started paliperidone during the day and Zyprexa at night to help with sleep. Formulation/clinical reason/plan: Patient presents with psychotic symptoms and plans to harm others. Patient has a history of psychotic illness with a history of auditory hallucinations that are command in nature and have commanded patient to hurt others. He also has a history of assault in the community and has been incarcerated. Patient has responded to paliperidone and Zyprexa so will restart these medications now. -Food Products Sales Representative discussed case with Dr. Thomson, pediatric medical assistant of the psychiatric department and other team members. Given that patient's violent history is combined with psychotic illness and chronic non-adherence with medication, all agree that patient requires a forensic evaluation and needs long-term forensic treatment. Hospital course: 09/27 Patient overall more calm today. Intermittently making aggressive comments how, when talking on the phone, and overheard saying that he will rip people's eyes out if he is not just charged. However to staff he is appropriate and polite. Taking medications. Food Products Sales Representative met with patient who acknowledged he is having auditory hallucinations saying they are terrorists... He also said that he knows Federal agents are listening to him all the time so and response he yells loudly at them. Food Products Sales Representative asked about the Molotov cocktails in he said that they were just to celebrate his grandfather's birthday and nothing else. He asks about discharge but writer technical publications explains that patient is going to need to stay for more treatment. Discussed medications and he agreed to get on Invega Sustenna. Later, writer technical publications learned that officer from [place] police called to inform that a warrant is out for patient's arrest Discussed case again with Dr. Thomson who agrees that what patient needs most is a forensic evaluation. Plan: Increase to paliperidone 3 mg daily and 6 mg in the afternoon Patient agrees to start Invega Sustenna 234 mg IM Continue Zyprexa 10 mg q.h.s. to help with aggression, psychosis and sleep; eventually patient can probably be stable on monotherapy Will add PRNs of Zyprexa and Ativan for breakthrough agitation Patient educated on: diagnosis and medication risk/benefits Informed Consent: understands, does not understand and further education needed Reason for continued inpatient stay Substantial Risk for: harm to others and med/psych decompensation Time Spent With Patient Time: Total time managing care of this patient today ____ minutes.
--- NOTE | 2024-09-27 18:22 | PC.NURSE ---
ASSUMED CARE OF PT AT APPROXIAMTELY 1730. PT HAS BEEN LAYING IN BED SINCE RN CAME ON SHIFT. PT REFUSED HIS DINNER TRAY. NO APPARENT DISTRESS.
--- NOTE | 2024-09-27 18:23 | PC.NURSE ---
SPOKE TO MD CHICA SALAS. PT WILL RECEIVE HIS INVEGA SUSTENNA INJECTION TOMORROW AFTERNOON. PROVIDER ORIGINALLY REQUESTED IT TO BE GIVEN TONIGHT BUT PHARMACY WILL NOT HAVE IT AVAILABLE AND READY UNTIL MID DAY TOMORROW 09/28/24.
[2024-09-27] MEDS: OLANZapine ODT 10 MG TAB.RAPDIS TRANSLINGU (19:59)
[2024-09-27 20:01] VITALS: BP 140/73; PULSE 101; RESP 18; O2SAT 98
--- NOTE | 2024-09-27 23:33 | PC.NURSE ---
Took over at 23:00 pt sleeping at this time.
--- NOTE | 2024-09-28 02:47 | PC.NURSE ---
pt sleeping at this time.
[2024-09-28 07:08] VITALS: BP 135/95; PULSE 85; RESP 18; O2SAT 97
--- NOTE | 2024-09-28 07:21 | MHC.EDTECH ---
Patient approached the nurses desk asking what's the process for discharge, I've been here 72 hours and if I'm not out of here by 0900 I'm calling my planner internship. This tech explained that the staff back here did not make the decision on who stayed and who discharged but that we would work on finding an answer for him. Patient also made a threatening comment while walking back to his room, this tech was unable to hear his full statement, but it involved I could have stabbed someone, but I didn't.
--- NOTE | 2024-09-28 07:25 | MHC.EDTECH ---
Patient pacing the pod milieu and common area.
--- NOTE | 2024-09-28 07:44 | PC.NURSE ---
patient attempting to lift chair in common area, stating he will use the chair to throw at the door and that he is leaving today whether by will or by force. previously on phone stating If I have to, I'll knock the nurse out and steal her murphy card . pacing throughout pod.
--- NOTE | 2024-09-28 09:05 | PC.NURSE ---
Addendum entered by Kirsten Skelton RN 09/28/24 09:45: patient agreeable to take invega. medicated per the MAR. patient conversing politely with staff at this time. Original Note: patient refused invega PO. states he does not like the side effects from the medication. awaiting dispo from provider.
--- NOTE | 2024-09-28 12:18 | MHC.EDTECH ---
Patient items moved from [facility] to Pod locker 5
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
[2024-09-28 16:50] VITALS: BMI 29.2
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
[2024-09-28 17:59] VITALS: BP 166/98; PULSE 100; RESP 16; TEMP 36.9; O2SAT 98
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
[2024-09-28 19:44] LABS: Cannabinoid Screen Urine POSITIVE (Not Detect)
[2024-09-28 20:00] VITALS: BP 142/89; PULSE 88; TEMP 36.8; O2SAT 98
[2024-09-29 07:57] LABS: Hemoglobin A1C 131.4938 umol/L; Total Hemoglobin (HGBA1C) 4120.4793 umol/L
[2024-09-29 08:18] LABS: Alanine Aminotransferase 75 U/L (0-40); Albumin Level 4.9 g/dL (3.5-5.0); Alkaline Phosphatase 67 U/L (39-117); Anion Gap 13 (12-20); Aspartate Amino Transferase 102 U/L (5-37); Blood Urea Nitrogen 15 mg/dL (9-16); Calcium 9.8 mg/dL (8.4-10.2); Carbon Dioxide 26 mmol/L (22-29); Chloride 104 mmol/L (96-108); Cholesterol 240 mg/dL (<200); Creatinine Clr Calc Pharmacy 153.6; Estimated Glomerular Filt Rate > 60; HDL Cholesterol 35 mg/dL (>40); Potassium 4.2 mmol/L (3.3-5.1); Sodium 139 mmol/L (135-145); Total Protein 7.7 g/dL (6.5-8.0); Triglycerides 224 mg/dL (<150)
[2024-09-29 08:23] LABS: Free T4 (Free Thyroxine) 1.15 ng/dL (0.71-1.85); Thyroid Stimulating Hormone 2.44 uIU/mL (0.32-4.0)
[2024-09-29 09:00] VITALS: BP 141/98; PULSE 101; TEMP 36.9; O2SAT 98
[2024-09-29 09:08] VITALS: BP 141/98
[2024-09-29] MEDS: Nicotine 14 MG PATCH.TD24 TRANSDERMA (12:06)
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
[2024-09-29 20:00] VITALS: BP 137/80; PULSE 90; RESP 16; TEMP 36.9; O2SAT 98
[2024-09-30 08:02] VITALS: BP 106/58; PULSE 58; RESP 16; TEMP 36.5; O2SAT 98
[2024-09-30] MEDS: Nicotine 14 MG PATCH.TD24 TRANSDERMA (08:22)
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
[2024-09-30 20:00] VITALS: BP 134/71; PULSE 93; RESP 16; TEMP 37; O2SAT 97
[2024-09-30 21:56] VITALS: BP 126/81
[2024-10-01 08:00] VITALS: BP 143/93; PULSE 84; RESP 18; TEMP 36.6; O2SAT 99
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
[2024-10-01] MEDS: Nicotine 7 MG PATCH.TD24 TRANSDERMA (14:27)
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
[2024-10-01 20:06] VITALS: BP 135/105; PULSE 91; RESP 16; TEMP 36.6; O2SAT 98
[2024-10-01 21:37] VITALS: BP 132/105
[2024-10-02 08:00] VITALS: BP 131/72; PULSE 88; RESP 18; TEMP 36.1; O2SAT 99
[2024-10-02] MEDS: Nicotine 7 MG PATCH.TD24 TRANSDERMA (08:50)
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
[2024-10-02 20:00] VITALS: BP 138/77; PULSE 88; RESP 16; TEMP 37; O2SAT 97
[2024-10-02 21:56] VITALS: BP 138/77
[2024-10-03 08:05] VITALS: BP 130/81; PULSE 80; TEMP 36.6; O2SAT 98
[2024-10-03] MEDS: Nicotine 7 MG PATCH.TD24 TRANSDERMA (08:48)
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
[2024-10-03 20:00] VITALS: BP 134/88; PULSE 89; RESP 18; TEMP 37; O2SAT 96
[2024-10-04 08:00] VITALS: BP 127/70; PULSE 83; RESP 18; TEMP 36.6; O2SAT 98
[2024-10-04] MEDS: Nicotine 7 MG PATCH.TD24 TRANSDERMA (08:07)
[2024-10-04] MEDS: Triamcinolone Acet 0.1 % Oint 15 GM TUBE 1 APPL TOPICAL ×2 (09:28→14:45)
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
[2024-10-04 19:59] VITALS: BP 144/76; PULSE 108; RESP 18; TEMP 36.8; O2SAT 99
[2024-10-05 08:00] VITALS: BP 134/65; PULSE 97; RESP 18; TEMP 36.6; O2SAT 98
[2024-10-05] MEDS: Nicotine 7 MG PATCH.TD24 TRANSDERMA (08:13)
[2024-10-05] MEDS: Naloxone HCl Nasal TAKE HOME 4 MG SPRAY 8 MG NOSTRILALT (08:15)
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
== END 2024-10-05 12:38 | disposition home or self-care (01) | DRG 885 ==
LOC: HO.ED 09-26 12:34 → HO.PADLT16 09-28 14:26 → HO.PM5 09-28 15:31
PROVIDERS: Emergency Medicine; Admitting Provider Nurse Practitioner Psychiatric/Mental Health; Emergency Provider Emergency Medicine; Visit Provider Psychiatry & Neurology Psychiatry
DX: F25.9 Schizoaffective disorder, unspecified (principal); F43.12 Post-traumatic stress disorder, chronic; F17.210 Nicotine dependence, cigarettes, uncomplicated; F14.10 Cocaine abuse, uncomplicated; Z71.6 Tobacco abuse counseling; Z79.899 Other long term (current) drug therapy
CPT/HCPCS: 36415; 80048; 80053; 80061; 80076; 80143; 80179; 80307; 83036; 84439; 84443; 85025; 99285; J1200; J1630; J2250; J2359; J2426; J3360; J3486; S9485

== ENCOUNTER → 2024-09-25 17:32 | Outpatient (BNV) | payer OTHER, SELFPAY | PROVIDERS: Emergency Provider Emergency Medicine; Visit Provider Psychiatry & Neurology Psychiatry | DX: F25.9 Schizoaffective disorder, unspecified (principal) | CPT/HCPCS: 99222; 99232; 99499 ==